=== PATIENT | male | born 1960 | race Caucasian/White ===

== ENCOUNTER 2016-02-10 10:23 | Outpatient (CLI) | payer MEDICARE, MEDICAID | END 2016-02-10 10:24 | disposition home or self-care (01) | DX: R73.9 Hyperglycemia, unspecified (principal); E78.5 Hyperlipidemia, unspecified ==

== ENCOUNTER 2016-02-27 | Outpatient (CLI) | payer MEDICARE, MEDICAID | END 2016-02-27 13:30 | disposition home or self-care (01) | DX: R07.9 Chest pain, unspecified (principal) ==

== ENCOUNTER 2016-03-19 14:07 | Outpatient (CLI) | payer MEDICARE, MEDICAID | END 2016-03-19 14:08 | disposition home or self-care (01) | DX: F25.9 Schizoaffective disorder, unspecified (principal) ==

== ENCOUNTER 2016-06-08 21:45 | Outpatient (CLI) | payer MEDICARE, MEDICAID | END 2016-06-08 21:46 | disposition home or self-care (01) | DX: E11.9 Type 2 diabetes mellitus without complications (principal) ==

== ENCOUNTER 2016-08-12 16:11 | Outpatient (CLI) | payer MEDICARE, MEDICAID | END 2016-08-12 16:12 | disposition EMS.NT | DX: M25.552 Pain in left hip (principal) ==

== ENCOUNTER 2016-08-30 07:07 | Day surgery (SDC) | payer MEDICARE, MEDICAID ==
[2016-08-30] MEDS ORDERED: LACTATED RINGERS 1,000 ML IV ONE (07:34)
--- NOTE | 2016-08-30 08:15 | SURGERY HX AND PHYSICAL(T) ---
Surgical History & Physical - PMH/PSH/Social Hx Does the pt have a hx of MRSA?: No Neurological History: Dementia Eyes, Ears, Nose, Throat: None, Chronic hearing loss Cardiovascular: High cholesterol Respiratory: COPD, Emphysema, Sleep apnea, Other Skin: None Endocrine/Autoimmune: Type 2 diabetes Gastrointestinal: GERD, Hiatal hernia, Other Urinary: None Musculoskeletal: None Blood Disorders: None Psychiatric: Depression, Anxiety, Schizophrenia, Panic attacks General: EGD Orthopedic: Other Eyes Ears Nose Throat (EENT): Other Smoking Status: Current every day smoker Does the pt drink ETOH?: Yes Frequency: Occasional Does the pt have substance abuse?: No - Home Meds and Allergies Home Medications: Aripiprazole [Abilify] 15 mg PO DAILY 06/18/12 Cholecalciferol (Vitamin D3) [Vitamin D] 5,000 unit PO DAILY 06/18/12 Divalproex ER [Depakote ER] 500 mg PO BID 06/18/12 Multivitamin [Multivitamins] 1 each PO DAILY 06/18/12 Pantoprazole Sodium [Protonix] 40 mg PO DAILY 06/18/12 QUEtiapine [SEROquel] 600 mg PO QPM 06/18/12 Albuterol Sulfate [Albuterol Sulfate Hfa] 0.083 mg PO TID 11/01/13 Albuterol Sulfate [Proair Hfa] 2 inhaler INH DAILY 11/01/13 Atorvastatin [Lipitor] 10 mg PO QPM 11/01/13 Ketotifen Fumarate [Eye Itch Relief] 5 ml OP DAILY 11/01/13 Budesonide/Formoterol Fumarate [Symbicort 160-4.5 Mcg Inhaler] 2 puffs BID 09/05 Fluticasone [Flonase] 2 spray INH DAILY 09/05/14 Tiotropium [Spiriva] 1 puffs INH DAILY 09/05/14 Citalopram [CeleXA] 10 mg PO DAILY 08/24/15 Loratadine [Claritin] 10 mg PO DAILY 08/24/15 Allergies/Adverse Reactions: Allergies Allergy/AdvReac Type Severity Reaction Status Date / Time No Known Drug Allergies Allergy Verified 03/26/14 07:15 - Vital Signs Temperature: 36.0 C Respiratory Rate: 16 O2 Saturation: 94 Weight (kg): 77.7 kg Height: 1.7 m - Patient Review Patient Review: Problems were reviewed with the patient during this visit. Medications were reviewed with the patient during this visit. Allergies were reviewed this patient during this visit. Pertinent Tests Reviewed: All pertitent test for this patient were reviewed. - Assessment & Plan Assessment and Plan: This very pleasant 55-year-old male was initially sent to our office by Dr. Enrique Higgins on July 15 and for reasons that are unclear to me he was scheduled more than 30 days out. Because of this and updated/new history and physical is mandated. No substantive changes. There have been no new medications, no new allergies, no medications have been stopped, he has not been admitted to the hospital, there are no new diagnoses, and he has not been operated on. There are no new concerns or complaints.. He is accompanied to today's visit by his caregiver and another woman (mother?). He denies nausea, vomiting, constipation, diarrhea, melena, hematochezia, hematemesis, abdominal pain, unexplained weight loss, or change in the color, character or caliber of his stool. He denies dysphagia, odynophagia, dysphasia, or GERD. He is very agreeable with me today and I am not sure how much of what he is saying is a consistent feature of his history. The patient had a an EGD performed by Dr. 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 At that time he was getting every 2 year EGDs to follow-up his Jimenez's.repeat EGD in 2013 also showed Jimenez's changes. Allergies: * DUST (Critical) Current Meds: METFORMIN HCL 500 MG TABS (METFORMIN HCL) Take one tablet by mouth twice daily DOCUSATE SODIUM 100 MG ORAL TABS (DOCUSATE SODIUM) Take one half tablet to one tablet by mouth daily as needed for constipation. DAILY SHAUNA ORAL TABS (MULTIPLE VITAMIN) Take one tablet by mouth every morning PEPTO-BISMOL SUSP (BISMUTH SUBSALICYLATE SUSP) Take 30ml every hour to every 4 hours as needed ATORVASTATIN CALCIUM 10 MG ORAL TABS (ATORVASTATIN CALCIUM) Take one tablet by mouth daily at bedtime LORATADINE 10 MG TABS (LORATADINE) Take one tablet by mouth daily as needed for allergies ABILIFY 20 MG ORAL TABS (ARIPIPRAZOLE) Take one tablet by mouth daily in the evening SPIRIVA HANDIHALER 18 MCG CAPS (TIOTROPIUM BROMIDE MONOHYDRATE) Inhale one capsuleby mouth every morning CITALOPRAM HYDROBROMIDE 20 MG TABS (CITALOPRAM HYDROBROMIDE) Take one tablet by mouth daily in the evening FLUTICASONE PROPIONATE 50 MCG/ACT SUSP (FLUTICASONE PROPIONATE) Use two sprays each nostril daily ALBUTEROL SULFATE 0.083 % NEBU (ALBUTEROL SULFATE) Use one ampule via nebulizer twice daily BREO ELLIPTA 100-25 MCG/INH INH AEPB (FLUTICASONE FUROATE-VILANTEROL) One inhalation once daily. VITAMIN D3 5000 UNIT ORAL TABS (CHOLECALCIFEROL) Take one tablet by mouth daily SEROQUEL 200 MG TABS (QUETIAPINE FUMARATE) Take three tablets by mouth daily at bedtime DEPAKOTE 500 MG ORAL TBEC (DIVALPROEX SODIUM) Take one tablet by mouth twice daily PANTOPRAZOLE SODIUM 40 MG ORAL TBEC (PANTOPRAZOLE SODIUM) Take one tablet by mouth twice daily KETOTIFEN FUMARATE 0.025 % OPHTH SOLN (KETOTIFEN FUMARATE) Instill 1 drop each eye every 8 hours as needed for red, itchy eyes PROAIR HFA 108 (90 BASE) MCG/ACT AERS (ALBUTEROL SULFATE) Inhale two puffs every 6-8 hours as needed for wheezing or breathing difficulties TYLENOL 325 MG ORAL TABS (ACETAMINOPHEN) Take one to two tablets by mouth as needed. Not to exceed 6 tablets per day. SIMETHICONE 80 MG ORAL CHEW (SIMETHICONE) Take one chewCentricity only allows for 2000 characters per field and this is not enough to input the patient's medications. Please refer to the patient or another list for an accurate list of the patient's medications. 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 Past Surgical History: Upper GI endoscopy Family History Summary: Mother (biol.) - Has Family History Unknown - Entered On: 10/31/2015 Risk Factors: Smoked Tobacco Use: Current every day smoker Cigarettes: Yes Counseled to quit/cut down: no No Counseling Performed Reason: Not indicated Passive smoke exposure: no Drug use: no HIV high-risk behavior: no Caffeine use: 2 drinks per day Alcohol use: yes Type: wine or beer Drinks per day: social Exercise: yes Times per week: 3 Type of Exercise: seated exercises with bungy cordd Seatbelt use: 100 % Sun Exposure: frequently Family History Risk Factors: Family History of VT in females < 65 years old: no Family History of VT in males < 55 years old: no Review of Systems Asked constitutional, eyes, ears, nose, mouth, throat, cardiovascular, respiratory, gastrointestinal, genitourinary, musculoskeletal, integumentary, neurological, psychiatric, endocrine, hematologic, lymphatic, allergic, and immunologic and is diffusely positive. Allergies: * DUST (Critical) Physical Exam General: 55-year old male of short stature with clear developmental delays, mild mental retardation, well nourished HEENT: Prominent forehead and brow, atraumatic, extraocular movement intact, mucous membranes pink and moist, sclera anicteric and not injected, male pattern baldness Neck: Supple without pain on palpation, mass or bruit Cardiac: Regular rate and rhythm without rub, gallop, or murmur Chest: Clear to auscultation bilaterally Abdomen: Soft, nontender, normoactive bowel sounds, no hepatomegaly, no splenomegaly Genitourinary: Deferred Rectal: Deferred Extremities: No gross neurovascular problem, no clubbing, cyanosis or edema Gait: No gross motor deficit Psychiatric: Alert and oriented to person place and time, asks and answers questions appropriately, mood and affect appropriate Impression & Recommendations: Esophagogastroduodenoscopy with possible biopsies and/or polypectomies. Indications, procedure, alternatives (such as barium studies and even no procedure at all) and risks including but not limited to perforation requiring operative repair, bleeding with its risks, and were fully explained to him. In the office, I adam diagrams explaining the upper gastrointestinal anatomy and the proposed procedure and handed it to him. In the office, conscious sedation was discussed at length with him as were its risks including but not limited to loss of airway, aspiration, respiratory depression, and not enough relief of pain and anxiety and he indicated that he wished to have conscious sedation for his procedure. I explained that his posterior oropharynx would also be anesthetized for the procedure. In the office, I explained that MAC anesthesia is associated with a higher incidence of intestinal perforation. Review of his history did not and does not reveal any significant systemic disease that would contraindicate use of conscious sedation or MAC anesthesia. All questions were fully answered. Verbal and written consent was obtained. The patient in preparation for his esophagogastroduodenoscopy has been n.p.o. 20 minutes of [id number] time spent with the patient and his caregiver the majority of which was spent in discussion and in the generation of this document
[2016-08-30] MEDS ORDERED: MIDAZOLAM 2 MG/2 ML VIAL IVP ONE (08:47)
[2016-08-30] MEDS ORDERED: fentaNYL 100 MCG/2 ML VIAL IVP ONE (08:47)
[2016-08-30] MEDS ORDERED: BENZOCAINE/TETRACAINE/BUTAMBEN SPRAY 56 GM TOP ONE (08:52)
[2016-08-30] MEDS ORDERED: LIDO GARGLE 30 ML BOTTLE PO ONE (08:52)
[2016-08-30 10:06] VITALS: BP 113/76
== END 2016-08-30 07:08 | disposition home or self-care (01) ==
LOC: SDS 07:07
PROVIDERS: ATTEND Surgery
PROC: 0DB38ZX Excision of Lower Esophagus, Via Natural or Artificial Opening Endoscopic, Diagnostic (ICD-10-PCS; principal; 2016-08-30 08:15)
DX: K22.70 Barrett's esophagus without dysplasia (principal); K20.9 Esophagitis, unspecified; F03.90 Unspecified dementia, unspecified severity, without behavioral disturbance, psychotic disturbance, mood disturbance, and anxiety; J44.9 Chronic obstructive pulmonary disease, unspecified; E11.9 Type 2 diabetes mellitus without complications; K21.9 Gastro-esophageal reflux disease without esophagitis; F41.0 Panic disorder [episodic paroxysmal anxiety]; F32.9 Major depressive disorder, single episode, unspecified; F20.9 Schizophrenia, unspecified; Z79.84 Long term (current) use of oral hypoglycemic drugs; G47.33 Obstructive sleep apnea (adult) (pediatric); E78.5 Hyperlipidemia, unspecified; F17.210 Nicotine dependence, cigarettes, uncomplicated
CPT/HCPCS: 43239; A9270; J7120; 87081; 88305

== ENCOUNTER 2017-01-05 08:00 | Outpatient (CLI) | payer MEDICARE, MEDICAID ==
[2017-01-05 12:32] LABS: BASOPHILS % (AUTO) 0.3 %; EOSINOPHILS # (AUTO) 0.2 10^3/uL (0.0-0.7); EOSINOPHILS % (AUTO) 2.6 %; HCT - HEMATOCRIT 44.9 % (42.0-52.0); HGB - HEMOGLOBIN 15.2 g/dL (14.0-18.0); LYMPHOCYTES # (AUTO) 2.8 10^3/uL (1.5-3.5); LYMPHOCYTES % (AUTO) 39.7 %; MEAN CORPUSCULAR HEMOGLOBIN 30.2 pg (27.0-31.0); MEAN CORPUSCULAR HGB CONC 33.9 g/dL (32.0-36.0); MEAN CORPUSCULAR VOLUME 89.3 fL (80.0-94.0); MEAN PLATELET VOLUME 8.2 fL (7.4-11.4); MONOCYTES # (AUTO) 0.9 10^3/uL (0.0-1.0); MONOCYTES % (AUTO) 12.7 %; NEUTROPHILS # (AUTO) 3.2 10^3/uL (1.5-6.6); NEUTROPHILS % (AUTO) 44.7 %; NUCLEATED RED BLOOD CELLS AUTO 0.1 /100WBC; RED BLOOD COUNT 5.03 10^6/uL (4.70-6.10); RED CELL DISTRIBUTION WIDTH 15.3 % (12.0-15.0); UNCORRECTED WHITE BLOOD COUNT 7.1 x10^3/uL; WHITE BLOOD COUNT 7.1 x10^3/uL (4.8-10.8)
[2017-01-05 13:00] LABS: HEMOGLOBIN A1C 0.64 g/dL
[2017-01-05 13:17] LABS: ALBUMIN/GLOBULIN RATIO 1.4 (1.0-2.2); BILIRUBIN,TOTAL 0.6 mg/dL (0.2-1.0); BUN - BLOOD UREA NITROGEN 25 mg/dL (6-20); CALCIUM 9.3 mg/dL (8.5-10.3); CARBON DIOXIDE - CO2 30 mmol/L (21-32); CHLORIDE 100 mmol/L (101-111); CHOL/HDL RATIO 4.5 (<5.0); CHOLESTEROL 174 mg/dL; CREATININE 0.6 mg/dL (0.6-1.2); GFR - MDRD 138 (>89); GLUCOSE 94 mg/dL (70-100); HDL CHOLESTEROL 39 mg/dL; LDL/HDL RATIO 1.9 (<3.6); SODIUM 137 mmol/L (135-145); TOTAL PROTEIN 6.8 g/dL (6.7-8.2); TRIGLYCERIDES 312 mg/dL; VLDL CHOLESTEROL 62 mg/dL
== END 2017-01-05 08:01 | disposition home or self-care (01) ==
LOC: LAB.N 08:00
PROVIDERS: ATTEND Family Medicine
DX: E11.9 Type 2 diabetes mellitus without complications (principal); E78.5 Hyperlipidemia, unspecified; F25.9 Schizoaffective disorder, unspecified
CPT/HCPCS: 36415; 80053; 80061; 80164; 83036; 85025

== ENCOUNTER 2017-04-07 13:58 | Outpatient (CLI) | payer MEDICARE, MEDICAID | END 2017-04-07 13:59 | disposition EMS.NT | LOC: EMS 13:58 | PROVIDERS: ATTEND Surgery | DX: S30.810A Abrasion of lower back and pelvis, initial encounter (principal); W18.30XA Fall on same level, unspecified, initial encounter; Y92.039 Unspecified place in apartment as the place of occurrence of the external cause ==

== ENCOUNTER 2017-05-17 08:00 | Outpatient (CLI) | payer MEDICARE, MEDICAID ==
[2017-05-17 12:23] LABS: CALCIUM 8.7 mg/dL (8.5-10.3); CREATININE 0.7 mg/dL (0.6-1.2)
[2017-05-17 12:41] LABS: HB2 TOTAL 15.8 g/dL; HEMOGLOBIN A1C 0.72 g/dL; HEMOGLOBIN A1C % 6.3 % (4.6-6.2)
== END 2017-05-17 08:01 | disposition home or self-care (01) ==
LOC: LAB.N 08:00
PROVIDERS: ATTEND Family Medicine
DX: E11.9 Type 2 diabetes mellitus without complications (principal)
CPT/HCPCS: 36415; 80048; 83036

== ENCOUNTER 2017-09-22 16:05 | Outpatient (CLI) | payer MEDICARE, MEDICAID ==
--- NOTE | 2017-09-22 16:36 | XRAY Report ---
Procedure Date: 09/22/2017 Accession Number: [id number] / [id number] Procedure: XRN - Hip w/Pelvis 2-3V LT CPT Code: FULL RESULT: EXAM: LEFT HIP AND PELVIS RADIOGRAPHY EXAM DATE: 09/22/2017 04:27 PM. HISTORY: Left hip pain. COMPARISONS: None. TECHNIQUE: 1 view of the pelvis and 1 view of the hip. FINDINGS: Bones: Normal. No fracture or bone lesion. Joints: Mild narrowing at the right hip joint with mild subcortical sclerosis and small osteophyte right acetabular roof. Moderate narrowing of the left hip joint with moderate-sized osteophytes and subcortical sclerosis involving the entirety of the deep acetabulum. Small amount of subcortical sclerosis and cyst formation along the normally configured femoral head. Small osteophytes off the inferior aspect of the femoral head. Normal sacroiliac joints. Marked degenerative disk disease L4-L5 and L5-S1. Soft Tissues: Normal. No soft tissue swelling. IMPRESSION: 1. Mild degenerative changes right hip joint. 2. Moderate to marked degenerative changes left hip, grade 3 Kellgren Samuel classification. Suspect impingement syndrome. 3. Marked degenerative disk disease lower lumbar spine. RADIA
== END 2017-09-22 16:06 | disposition home or self-care (01) ==
LOC: DI.N 16:05
PROVIDERS: ATTEND Family Medicine
DX: M16.0 Bilateral primary osteoarthritis of hip (principal); M51.36 Other intervertebral disc degeneration, lumbar region

== ENCOUNTER 2018-01-03 08:31 | Outpatient (CLI) | payer MEDICARE, MEDICAID ==
[2018-01-03 12:48] LABS: HB2 TOTAL 15.6 g/dL; HEMOGLOBIN A1C 0.68 g/dL; HEMOGLOBIN A1C % 6.1 % (4.6-6.2)
[2018-01-03 12:49] LABS: ALBUMIN 3.4 g/dL (3.2-5.5); ALBUMIN/GLOBULIN RATIO 1.3 (1.0-2.2); ALKALINE PHOSPHATASE 76 IU/L (42-121); ALT ALANINE AMINOTRANSFERASE 41 IU/L (10-60); AST ASPARTATE AMINOTRANSFERASE 27 IU/L (10-42); BILIRUBIN,TOTAL 0.4 mg/dL (0.2-1.0); BUN - BLOOD UREA NITROGEN 11 mg/dL (6-20); CALCIUM 8.8 mg/dL (8.5-10.3); CARBON DIOXIDE - CO2 35 mmol/L (21-32); CHLORIDE 95 mmol/L (101-111); CHOL/HDL RATIO 4.1 (<5.0); CHOLESTEROL 182 mg/dL; CREATININE 0.7 mg/dL (0.6-1.2); GFR - MDRD 115 (>89); GLUCOSE 98 mg/dL (70-100); HDL CHOLESTEROL 44 mg/dL; LDL CHOLESTEROL,CALCULATED 87 mg/dL; SODIUM 137 mmol/L (135-145); VALPROIC ACID (DEPAKOTE) 56.8 ug/mL; VLDL CHOLESTEROL 51 mg/dL
[2018-01-03 12:52] LABS: BASOPHILS % (AUTO) 0.7 %; EOSINOPHILS # (AUTO) 0.1 10^3/uL (0.0-0.7); EOSINOPHILS % (AUTO) 2.4 %; HGB - HEMOGLOBIN 14.6 g/dL (14.0-18.0); LYMPHOCYTES # (AUTO) 2.2 10^3/uL (1.5-3.5); LYMPHOCYTES % (AUTO) 37.4 %; MEAN CORPUSCULAR HEMOGLOBIN 30.6 pg (27.0-31.0); MEAN CORPUSCULAR HGB CONC 34.1 g/dL (32.0-36.0); MEAN CORPUSCULAR VOLUME 89.5 fL (80.0-94.0); MEAN PLATELET VOLUME 8.1 fL (7.4-11.4); MONOCYTES # (AUTO) 0.7 10^3/uL (0.0-1.0); MONOCYTES % (AUTO) 12.1 %; NEUTROPHILS # (AUTO) 2.8 10^3/uL (1.5-6.6); NEUTROPHILS % (AUTO) 47.4 %; PLT - PLATELET COUNT 232 10^3/uL (130-450); RED BLOOD COUNT 4.77 10^6/uL (4.70-6.10); RED CELL DISTRIBUTION WIDTH 15.1 % (12.0-15.0); WHITE BLOOD COUNT 5.9 x10^3/uL (4.8-10.8)
[2018-01-03 13:36] LABS: RBC MORPHOLOGY (MULTIPLE) 2+ ANISOCYTOSIS (NORMAL)
== END 2018-01-03 23:59 | disposition home or self-care (01) ==
LOC: LAB.N 08:31
PROVIDERS: ATTEND Family Medicine
DX: E11.9 Type 2 diabetes mellitus without complications (principal); K22.70 Barrett's esophagus without dysplasia; F25.9 Schizoaffective disorder, unspecified
CPT/HCPCS: 36415; 80053; 80061; 80164; 83036; 83721; 84443; 85025

== ENCOUNTER 2018-01-18 17:06 | Emergency (ER) | payer MEDICARE, MEDICAID ==
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
[2018-01-18] MEDS ORDERED: DOXYCYCLINE 100 MG TABLET PO STA (18:13)
--- NOTE | 2018-01-18 20:46 | Ultrasound Report ---
Reason: left leg/calf swollen and tender for few days Procedure Date: 01/18/2018 Accession Number: [id number] / [id number] Procedure: US - Duplex Ext Veins Left CPT Code: FULL RESULT: EXAM: LEFT LOWER EXTREMITY VENOUS ULTRASOUND EXAM DATE: 01/18/2018 07:51 PM. CLINICAL HISTORY: Left leg/calf swollen and tender for few days. COMPARISON: DUPLEX EXT VEINS LEFT 05/23/2015 8:19 PM. TECHNIQUE: Real-time sonographic vascular imaging was performed by the networking specialist through the lower extremity utilizing both color-flow and Doppler spectral analysis. Multiple student services representative static images were saved for review. FINDINGS: Common Femoral Vein (CFV): Normal. CFV-GSV Junction: Normal. Profunda Femoral Vein (PFV): Normal. Femoral Vein (FV) Prox: Normal. Femoral Vein (FV) Mid: Normal. Femoral Vein (FV) Dist: Normal. Popliteal Vein: Normal. Posterior Tibial Veins: Normal. Peroneal Veins: Normal. IMPRESSION: No evidence for deep venous thrombosis. RADIA
--- NOTE | 2018-01-18 20:52 | Ultrasound Report ---
Reason: right leg numbness with walking for weeks Procedure Date: 01/18/2018 Accession Number: [id number] / [id number] Procedure: US - Duplex Lwr Ext Arterial RT CPT Code: FULL RESULT: EXAM: RIGHT LOWER EXTREMITY ARTERIAL DOPPLER ULTRASOUND. EXAM DATE: 01/18/2018 08:29 PM. CLINICAL HISTORY: Right leg numbness with walking for weeks. Patient has hypertension, smoking, diabetes and lipids. COMPARISON: None. TECHNIQUE: Real-time sonographic vascular imaging was performed by the lightout examiner, utilizing color-flow, Doppler flow, and spectral analysis. Multiple member service representative static images were saved for review. FINDINGS: Right Leg: NAVAL MARINE ENGINEER: PSV 157 cm/sec. Triphasic waveform. PSFA: PSV 125 cm/sec. Triphasic waveform. MSFA: PSV 96 cm/sec. Triphasic waveform. DSFA: PSV 92 cm/sec. Triphasic waveform. PFA: PSV 94 cm/sec. Triphasic waveform. POP: PSV 36 cm/sec. Biphasic waveform. ALIZA: PSV 28 cm/sec. Biphasic waveform. TRAFFIC EXPERT: PSV 59 cm/sec. Biphasic waveform. PER: PSV 35 cm/sec. Biphasic waveform. DPA: PSV 47 cm/sec. Biphasic waveform. IMPRESSION: No evidence for hemodynamically significant stenosis or occlusion. RADIA
[2018-01-18] MEDS ORDERED: IBUPROFEN 600 MG TABLET PO STA (21:10)
[2018-01-18 21:20] VITALS: BP 139/92
== END 2018-01-18 21:22 | disposition home or self-care (01) ==
LOC: ED 17:06
DX: L03.116 Cellulitis of left lower limb (principal); M79.89 Other specified soft tissue disorders; F17.200 Nicotine dependence, unspecified, uncomplicated; E11.9 Type 2 diabetes mellitus without complications
CPT/HCPCS: 93926; 93971; 99283; A9270

== ENCOUNTER 2018-01-23 16:32 | Outpatient (CLI) | payer MEDICARE, MEDICAID | END 2018-01-23 16:33 | disposition EMS.NT | LOC: EMS 16:32 | PROVIDERS: ATTEND Surgery | DX: M79.89 Other specified soft tissue disorders (principal) ==

== ENCOUNTER 2018-04-05 12:25 | Outpatient (CLI) | payer MEDICARE, MEDICAID ==
--- NOTE | 2018-04-05 14:13 | XRAY Report ---
Reason: L TOE PAIN Procedure Date: 04/05/2018 Accession Number: [id number] / [id number] Procedure: XRN - Foot 2 View LT CPT Code: FULL RESULT: EXAM: LEFT FOOT RADIOGRAPHY EXAM DATE: 04/05/2018 01:02 PM. CLINICAL HISTORY: Left toe pain. COMPARISON: None. TECHNIQUE: 2 views. FINDINGS: Bones: Status post arthrodesis of the first ray phalanges. Joints: Positioning is suggestive of contracture. No subluxation is identified. Soft Tissues: Normal. No soft tissue swelling. IMPRESSION: Status post arthrodesis of the left great toe without fracture or subluxation. RADIA
== END 2018-04-05 12:26 | disposition home or self-care (01) ==
LOC: DI.N 12:25
PROVIDERS: ATTEND Physician Assistant Medical
DX: M79.675 Pain in left toe(s) (principal); Z98.1 Arthrodesis status

== ENCOUNTER 2018-07-13 08:00 | Outpatient (CLI) | payer MEDICARE, MEDICAID ==
[2018-07-13 12:56] LABS: BASOPHILS % (AUTO) 0.5 %; EOSINOPHILS # (AUTO) 0.1 10^3/uL (0.0-0.7); EOSINOPHILS % (AUTO) 1.9 %; HGB - HEMOGLOBIN 16.1 g/dL (14.0-18.0); LYMPHOCYTES # (AUTO) 2.8 10^3/uL (1.5-3.5); LYMPHOCYTES % (AUTO) 45.6 %; MEAN CORPUSCULAR HEMOGLOBIN 30.1 pg (27.0-31.0); MEAN CORPUSCULAR HGB CONC 33.3 g/dL (32.0-36.0); MEAN CORPUSCULAR VOLUME 90.2 fL (80.0-94.0); MEAN PLATELET VOLUME 8.3 fL (7.4-11.4); MONOCYTES # (AUTO) 0.7 10^3/uL (0.0-1.0); MONOCYTES % (AUTO) 10.9 %; NEUTROPHILS # (AUTO) 2.5 10^3/uL (1.5-6.6); NEUTROPHILS % (AUTO) 41.1 %; PLT - PLATELET COUNT 229 10^3/uL (130-450); RED BLOOD COUNT 5.37 10^6/uL (4.70-6.10); RED CELL DISTRIBUTION WIDTH 15.3 % (12.0-15.0); WHITE BLOOD COUNT 6.1 x10^3/uL (4.8-10.8)
[2018-07-13 13:23] LABS: ALBUMIN 3.9 g/dL (3.2-5.5); ALBUMIN/GLOBULIN RATIO 1.3 (1.0-2.2); ALKALINE PHOSPHATASE 75 IU/L (42-121); ALT ALANINE AMINOTRANSFERASE 36 IU/L (10-60); AST ASPARTATE AMINOTRANSFERASE 38 IU/L (10-42); BILIRUBIN,TOTAL 0.5 mg/dL (0.2-1.0); BUN - BLOOD UREA NITROGEN 17 mg/dL (6-20); CALCIUM 8.9 mg/dL (8.5-10.3); CARBON DIOXIDE - CO2 28 mmol/L (21-32); CHLORIDE 98 mmol/L (101-111); CHOL/HDL RATIO 6.3 (<5.0); CHOLESTEROL 194 mg/dL; CREATININE 0.9 mg/dL (0.6-1.2); GFR - MDRD 86 (>89); GLUCOSE 172 mg/dL (70-100); HDL CHOLESTEROL 31 mg/dL; LDL CHOLESTEROL,CALCULATED 90 mg/dL; LDL/HDL RATIO 2.9 (<3.6); SODIUM 138 mmol/L (135-145); TOTAL PROTEIN 6.9 g/dL (6.7-8.2); VALPROIC ACID (DEPAKOTE) 65.3 ug/mL; VLDL CHOLESTEROL 73 mg/dL
[2018-07-13 13:44] LABS: HB2 TOTAL 17.3 g/dL; HEMOGLOBIN A1C 0.81 g/dL; HEMOGLOBIN A1C % 6.4 % (4.6-6.2)
== END 2018-07-13 23:59 | disposition home or self-care (01) ==
LOC: LAB.N 08:00
PROVIDERS: ATTEND Physician Assistant Medical
DX: E78.5 Hyperlipidemia, unspecified (principal); E11.9 Type 2 diabetes mellitus without complications; F25.9 Schizoaffective disorder, unspecified
CPT/HCPCS: 36415; 80053; 80061; 80164; 83036; 83721; 85025

== ENCOUNTER 2018-10-10 14:25 | Outpatient (CLI) | payer MEDICARE, MEDICAID ==
--- NOTE | 2018-10-10 21:26 | SLEEP CARE CONSULTATION ---
Information from patient questionnaire entered by Huma Rojas. I have reviewed and concur with the information entered by Huma Rojas. This document represents the service I personally performed and the decisions made by me, Jean-Claude Soler MD, [facility]. History of Present Illness Reason for Visit: Previously diagnosed sleep apnea (SEVERE LEO AHI 40.0), Re- establish care Chief Complaint: reports: Other (NEEDING HELP BREATHING BETTER AT NIGHT) Duration of Symptoms: FEW MONTHS Usual bedtime: [id number] Time it takes to fall asleep: 30 MINUTES Observed to quit breathing while asleep: No Sleeps alone due to snoring: No Number of times waking at night: ON AND OFF Reasons for waking at night: reports: Other (HUNGRY OR CAN'T FALL BACK TO SLEEP) Toss, Turn, or Twitch while sleeping: Yes Recalls having dreams: Yes Usually gets out of bed at: [id number] Feels refreshed in the morning: Yes Morning headache: No Sleepy or fatigued during the day: Yes Ever fallen asleep while driving: No Takes day naps: Yes Dreams during day naps: Yes Prior sleep studies: Yes Year and Where: 2013 [facility] Additional HPI information: I had the pleasure of seeing Mr. Damon along with his game tester today regarding obstructive sleep apnea-hypopnea. As you know, he is a 57 year old gentleman who was diagnosed with severe obstructive sleep apnea-hypopnea (AHI was 40.0) here in 2013. He tried BiPAP but was unable to tolerate. He used oxygen at night for a while and then the treatment was discontinued. He continues to smoke cigarettes but much less. He sleeps alone. His game tester states that he appears sleepy during the day. Subjective Initial Bristol Sleepiness Scale score: 10 Past Medical History Past Medical History: reports: Anxiety, Depression, Mood disorder, GERD, Other Social History The patient's occupation is NOT EMPLOYED. Patient is Single and lives in [place]. Have you smoked in the past 12 months: Yes Alcohol use: No Caffeine use: Yes Caffeine amount and frequency: 2-4 Allergies and Home Medications Drug allergies reviewed: Yes Home medication list reviewed: Yes Review of Systems Cardiovascular: reports: leg or foot swelling Respiratory: reports: shortness of breath, wheeze Gastrointestinal: denies: heartburn, difficulty swallowing, nausea, vomitting, diarrhea, abdominal pain, other Urinary: denies: incontinence, frequency, urgency, impotence, other Psychiatric: reports: anxiety, depression, mood disorder Endocrine: denies: thyroid disease, history of goiter, sluggishness, too hot or cold, excessive thirst, increased appetite, increased urination, unexplained weakness, other Musculoskeletal: reports: joint pain, neck pain, back pain, joint swelling, muscle pain or cramping, mobility problems Physical Exam Vital signs obtained and entered by: Dr. Soler Blood Pressure: 120/80 Heart Rate: 70 O2 Saturation: 92 Height: 5 ft 9 in Weight (kg): 192 lb Body Mass Index: 28.3 BMI Classification: Overweight Neck circumference: 16.5 HEENT: No craniofacial malformation Nostrils: patent to airflow Turbinates: normal Septum: midline Mouth and throat: narrow oropharynx Soft palate: long Hard palate: normal Uvula: normal Uvula visualization: 50% Mallampati Class II Tongue: normal in size Tonsils: absent bilaterally Chin and jaw: normal size and position Neck: normal w/o lymphadenopathy or thyromegaly Heart: regular rate and rhythm Lungs: clear bilaterally Abdomen: soft Extremities: no edema or clubbing Neurologic: intact Impression and Plan IMPRESSION: 1. Obstructive Sleep Apnea-Hypopnea Syndrome, severe, untreated. The patient appears to be symptomatic for loud snoring, frequent awakenings during the night, unrefreshed sleep, cognitive impairment, and daytime hypersomnolence. Narrow oropharynx and obesity are common predisposing factors for obstructive sleep apnea-hypopnea syndrome. Pathophysiology of sleep-disordered breathing was discussed. Because his sleep studies were over 5 years ago, I recommend repeating the in-laboratory polysomnography to confirm the diagnosis and to reassess severity. If he has significant sleep disordered breathing, a manual CPAP titration study will also be performed to find the optimal treatment pressure and to see if oxygen supplement is necessary at night or not. I informed the patient of what the sleep studies involve and after some discussion, he agreed to proceed. Plan: 1. Schedule polysomnography + manual CPAP titration study and return in 1 to 2 weeks after the study to discuss result and initiate therapy. 2. Avoid long distance driving or when feeling sleepy. 3. Avoid alcohol, sedative and muscle relaxant around bedtime. 4. Attempt to lose weight. 5. Quit smoking. I spent 100% of this 15 minute visit face to face with the patient with greater than 50% of this was spent time counseling the patient and coordination of care.
[2018-10-10 21:27] VITALS: BP 120/80
== END 2018-10-10 14:26 | disposition home or self-care (01) ==
LOC: SC 14:25
PROVIDERS: ATTEND Internal Medicine Pulmonary Disease
DX: G47.33 Obstructive sleep apnea (adult) (pediatric) (principal)
CPT/HCPCS: 99203; G0463; 99212

== ENCOUNTER 2018-11-01 19:32 | Outpatient (CLI) | payer MEDICARE, MEDICAID | END 2018-11-01 19:33 | disposition home or self-care (01) | LOC: SC 19:32 | PROVIDERS: ATTEND Internal Medicine Pulmonary Disease | DX: G47.33 Obstructive sleep apnea (adult) (pediatric) (principal); G47.61 Periodic limb movement disorder | CPT/HCPCS: 95810 ==

== ENCOUNTER 2018-12-05 10:40 | Outpatient (CLI) | payer MEDICARE, MEDICAID ==
--- NOTE | 2018-12-05 12:50 | SLEEP CARE CONSULTATION ---
Information from patient questionnaire entered by Huma Rojas. I have reviewed and concur with the information entered by Huma Rojas. This document represents the service I personally performed and the decisions made by me, Jean-Claude Soler MD, [facility]. History of Present Illness Initial [place] Sleepiness Scale score: 10 Current [place] Sleepiness Scale score: 15 Additional HPI information: HPI: Mr. Damon returned with a extension edger for follow up of the sleep study he had on 11/01/2018. The polysomnography showed that the patient had normal sleep efficiency. The sleep architecture was abnormal for sleep fragmentation and reduced amount of time spent in REM and slow wave sleep (N3). Respiratory monitoring showed mild obstructive sleep apnea-hypopnea (AHI = 6.3) associated with frequent arousals, oxyhemoglobin desaturation and mild hypoxia (ashley oxygen saturation of 81%). The respiratory events occurred independently of sleep stage and body position (supine AHI = 6.7; non-supine = 6.15). Snore was light in intensity. There was severe periodic leg movement of sleep contributing to the sleep fragmentation. Cardiac rhythm was normal sinus rhythm without significant arrhythmia. No abnormal behavior (parasomnia) observed during the night. The patient was informed of these findings. I explained to him the pathophysiology behind obstructive sleep apnea. We then spent quite a bit of time discussing different treatment options. For mild obstructive sleep apnea, surgery and oral appliance are alternatives to nasal CPAP therapy but in moderate or severe cases, nasal CPAP is the most effective and reliable treatment. Weight loss in an obese individual is strongly recommended. After some discussion, he opted to try CPAP again. He tried CPAP 5 years ago and failed to be compliant with the treatment. Allergies and Home Medications Drug allergies reviewed: Yes Home medication list reviewed: Yes Review of Systems Review of systems same as previous: Yes Physical Exam Weight: 199 lb Impression and Plan IMPRESSION: 1. Obstructive Sleep Apnea-Hypopnea Syndrome, mild (was severe), associated with mild hypoxemia. His baseline oxygen saturation was already low at 90%, most likely due to emphysema given the life-long cigarette smoking history. Because he has excessive daytime sleepiness, treatment will be restarted. A manual CPAP/BiPAP titration study will be ordered to determine the optimal pressure setting and interface. PLAN: 1. Schedule a manual CPAP/BiPAP titration study. 2. Attempt to lose weight. 3. Return for follow up after the sleep study. I spent 100% of this 20 minute visit face to face with the patient with greater than 50% of this was spent time counseling the patient and coordination of care.
== END 2018-12-05 10:41 | disposition home or self-care (01) ==
LOC: SC 10:40
PROVIDERS: ATTEND Internal Medicine Pulmonary Disease
DX: G47.33 Obstructive sleep apnea (adult) (pediatric) (principal); J43.9 Emphysema, unspecified
CPT/HCPCS: 99213; G0463; 99212

== ENCOUNTER 2018-12-18 11:51 | Outpatient (CLI) | payer MEDICARE, MEDICAID ==
[2018-12-18 18:20] LABS: BASOPHILS % (AUTO) 0.4 %; EOSINOPHILS # (AUTO) 0.1 10^3/uL (0.0-0.7); EOSINOPHILS % (AUTO) 2.3 %; HGB - HEMOGLOBIN 14.4 g/dL (14.0-18.0); LYMPHOCYTES # (AUTO) 1.7 10^3/uL (1.5-3.5); LYMPHOCYTES % (AUTO) 32.7 %; MEAN CORPUSCULAR HEMOGLOBIN 29.1 pg (27.0-31.0); MEAN CORPUSCULAR VOLUME 93.9 fL (80.0-94.0); MEAN PLATELET VOLUME 10.4 fL (7.4-11.4); MONOCYTES # (AUTO) 0.8 10^3/uL (0.0-1.0); MONOCYTES % (AUTO) 14.7 %; NEUTROPHILS # (AUTO) 2.6 10^3/uL (1.5-6.6); NEUTROPHILS % (AUTO) 49.1 %; PLT - PLATELET COUNT 242 10^3/uL (130-450); RED BLOOD COUNT 4.95 10^6/uL (4.70-6.10); RED CELL DISTRIBUTION WIDTH 14.5 % (12.0-15.0); WHITE BLOOD COUNT 5.3 x10^3/uL (4.8-10.8)
[2018-12-18 18:40] LABS: ALBUMIN 3.6 g/dL (3.2-5.5); ALBUMIN/GLOBULIN RATIO 1.3 (1.0-2.2); ALKALINE PHOSPHATASE 67 IU/L (42-121); ALT ALANINE AMINOTRANSFERASE 29 IU/L (10-60); AST ASPARTATE AMINOTRANSFERASE 22 IU/L (10-42); BILIRUBIN,TOTAL 0.4 mg/dL (0.2-1.0); BUN - BLOOD UREA NITROGEN 14 mg/dL (6-20); CARBON DIOXIDE - CO2 34 mmol/L (21-32); CHLORIDE 99 mmol/L (101-111); CREATININE 0.7 mg/dL (0.6-1.2); GFR - MDRD 115 (>89); GLUCOSE 115 mg/dL (70-100); SODIUM 140 mmol/L (135-145); TOTAL PROTEIN 6.3 g/dL (6.7-8.2)
[2018-12-18 18:44] LABS: HB2 TOTAL 14.7 g/dL; HEMOGLOBIN A1C 0.7 g/dL; HEMOGLOBIN A1C % 6.5 % (4.6-6.2)
== END 2018-12-18 23:59 | disposition home or self-care (01) ==
LOC: LAB.N 11:51
PROVIDERS: ATTEND Physician Assistant Medical
DX: Z00.8 Encounter for other general examination (principal); F25.9 Schizoaffective disorder, unspecified; E11.9 Type 2 diabetes mellitus without complications
CPT/HCPCS: 36415; 80053; 80164; 83036; 85025; G0103; 84153

== ENCOUNTER 2019-10-12 08:00 | Outpatient (CLI) | payer MEDICARE, MEDICAID ==
[2019-10-12 18:19] LABS: BASOPHILS % (AUTO) 0.5 %; EOSINOPHILS # (AUTO) 0.1 10^3/uL (0.0-0.7); EOSINOPHILS % (AUTO) 1.8 %; HGB - HEMOGLOBIN 14.9 g/dL (14.0-18.0); LYMPHOCYTES # (AUTO) 2.1 10^3/uL (1.5-3.5); LYMPHOCYTES % (AUTO) 36.8 %; MEAN CORPUSCULAR HEMOGLOBIN 29.2 pg (27.0-31.0); MEAN CORPUSCULAR HGB CONC 30.8 g/dL (32.0-36.0); MEAN CORPUSCULAR VOLUME 94.5 fL (80.0-94.0); MEAN PLATELET VOLUME 10.4 fL (7.4-11.4); MONOCYTES # (AUTO) 0.8 10^3/uL (0.0-1.0); MONOCYTES % (AUTO) 14.2 %; NEUTROPHILS # (AUTO) 2.6 10^3/uL (1.5-6.6); PLT - PLATELET COUNT 246 10^3/uL (130-450); RED BLOOD COUNT 5.11 10^6/uL (4.70-6.10); RED CELL DISTRIBUTION WIDTH 14.8 % (12.0-15.0); WHITE BLOOD COUNT 5.7 x10^3/uL (4.8-10.8)
[2019-10-12 19:00] LABS: VALPROIC ACID (DEPAKOTE) 56.8 ug/mL
[2019-10-12 19:04] LABS: ALBUMIN/GLOBULIN RATIO 1.5 (1.0-2.2); ALKALINE PHOSPHATASE 70 IU/L (42-121); ALT ALANINE AMINOTRANSFERASE 23 IU/L (10-60); AST ASPARTATE AMINOTRANSFERASE 29 IU/L (10-42); BILIRUBIN,TOTAL 0.6 mg/dL (0.2-1.0); BUN - BLOOD UREA NITROGEN 24 mg/dL (6-20); CARBON DIOXIDE - CO2 32 mmol/L (21-32); CHLORIDE 98 mmol/L (101-111); CHOL/HDL RATIO 5.5 (<5.0); CHOLESTEROL 194 mg/dL; CREATININE 0.8 mg/dL (0.6-1.2); GLUCOSE 112 mg/dL (70-100); HDL CHOLESTEROL 35 mg/dL; LDL CHOLESTEROL,CALCULATED 103 mg/dL; LDL/HDL RATIO 2.9 (<3.6); SODIUM 138 mmol/L (135-145); TOTAL PROTEIN 6.6 g/dL (6.7-8.2); VLDL CHOLESTEROL 56 mg/dL
[2019-10-12 19:05] LABS: CREATININE,URINE 271.3 mg/dL; MICROALBUM/CREATININE RATIO,UR 1.5 ug/mg (<30.0); MICROALBUMIN,URINE 0.4 mg/dL (0-300.0)
[2019-10-12 20:22] LABS: HEMOGLOBIN A1c% 6.8 % (4.27-6.07)
== END 2019-10-12 23:59 | disposition home or self-care (01) ==
LOC: LAB.WCP 08:00
PROVIDERS: ATTEND Family Medicine
DX: E11.65 Type 2 diabetes mellitus with hyperglycemia (principal); J44.9 Chronic obstructive pulmonary disease, unspecified; F25.9 Schizoaffective disorder, unspecified
CPT/HCPCS: 36415; 80053; 80061; 80164; 82043; 82570; 83036; 83721; 84443; 85025

== ENCOUNTER 2020-01-02 14:58 | Outpatient (CLI) | payer MEDICARE, MEDICAID | END 2020-01-02 14:59 | disposition critical access hospital (66) | LOC: EMS 14:58 | PROVIDERS: ATTEND Surgery | DX: M54.6 Pain in thoracic spine (principal) | CPT/HCPCS: A0425; A0429 ==

== ENCOUNTER 2020-01-02 15:21 | Emergency (ER) | payer MEDICARE, MEDICAID ==
[2020-01-02] MEDS ORDERED: KETOROLAC 60 MG/2 ML VIAL IM STA (16:37)
[2020-01-02] MEDS ORDERED: CHERRY SYRUP 10 ML UDC PO ONE (16:38)
[2020-01-02] MEDS ORDERED: DEXAMETHASONE 10 MG/ML VIAL PO STA (16:38)
--- NOTE | 2020-01-02 16:40 | ED Physician Documentation ---
PD HPI BACK PAIN - Stated complaint Stated Complaint: FLANK PX - Chief complaint Chief Complaint: Back Pain - History obtained from History obtained from: Patient - History of Present Illness Timing - onset: How many weeks ago (3) Timing - duration: Weeks (3) Timing - details: Abrupt onset, Still present Location: Lower Quality: Pain, Spasm, Sharp Associated symptoms: No: Fever, Weakness, Numbness, Incontinent of urine, Unable to urinate, Hematuria, Incontinent of stool Improves with: Rest, Position Worsened by: Movement Similar symptoms before: Has not had sx before Recently seen: Not recently seen - Additional information Additional information: 59-year-old 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 He continues to have this pain is become concerned and is come to the hospital for evaluation. Review of Systems Constitutional: denies: Fever Eyes: denies: Decreased vision Cardiac: denies: Chest pain / pressure Respiratory: denies: Dyspnea, Cough GI: denies: Abdominal Pain, Nausea, Vomiting Skin: denies: Rash Musculoskeletal: reports: Back pain. denies: Neck pain, Extremity pain PD PAST MEDICAL HISTORY - Past Medical History Cardiovascular: High cholesterol Respiratory: COPD, Emphysema, Sleep apnea, Other Neuro: Other Endocrine/Autoimmune: Type 2 diabetes GI: GERD, Hiatal hernia, Other : None HEENT: Chronic hearing loss Psych: Depression, Anxiety, Schizophrenia, Panic attacks Musculoskeletal: None Derm: None - Past Surgical History Past Surgical History: Yes General: EGD Ortho: Other HEENT: Other - Present Medications Home Medications: Ambulatory Orders Medication Instructions Recorded Confirmed Aripiprazole [Abilify] 15 mg PO DAILY 06/18/12 08/30/16 Cholecalciferol (Vitamin D3) 5,000 unit PO DAILY 06/18/12 08/30/16 [Vitamin D] Divalproex ER [Depakote ER] 500 mg PO BID 06/18/12 08/30/16 Multivitamin [Multivitamins] 1 each PO DAILY 06/18/12 08/30/16 Pantoprazole Sodium [Protonix] 40 mg PO DAILY 06/18/12 08/30/16 QUEtiapine [SEROquel] 600 mg PO QPM 06/18/12 08/30/16 Albuterol Sulfate [Albuterol 0.083 mg PO TID PRN 11/01/13 08/30/16 Sulfate Hfa] Albuterol Sulfate [Proair Hfa] 2 inhaler INH DAILY PRN 11/01/13 08/30/16 Atorvastatin [Lipitor] 10 mg PO QPM 11/01/13 08/30/16 Ketotifen Fumarate [Eye Itch 5 ml OP DAILY PRN 11/01/13 08/30/16 Relief] Fluticasone [Flonase] 2 spray INH DAILY PRN 09/05/14 08/30/16 Tiotropium [Spiriva] 1 puffs INH DAILY 09/05/14 08/30/16 Citalopram [CeleXA] 10 mg PO DAILY 08/24/15 08/30/16 Loratadine [Claritin] 10 mg PO DAILY 08/24/15 08/30/16 Simethicone [Gas Relief] 1 tab PO DAILY PRN 08/30/16 08/30/16 Doxycycline Hyclate 100 mg PO BID #15 capsule 01/18/18 Naproxen 375 mg PO BID #20 tablet 01/18/18 Meloxicam [Mobic] 15 mg PO DAILY PRN #20 tablet 01/02/20 - Allergies Allergies/Adverse Reactions: Allergies Allergy/AdvReac Type Severity Reaction Status Date / Time No Known Drug Allergies Allergy Verified 01/02/20 15:34 - Social History Does the pt smoke?: Yes Smoking Status: Current every day smoker Does the pt drink ETOH?: Yes Does the pt have substance abuse?: No - Immunizations Immunizations are current?: Yes - POLST Patient has POLST: No PD ED PE NORMAL - Vitals Vital signs reviewed: Yes (normal) - General General: Alert and oriented X 3, No acute distress, Well developed/nourished - HEENT HEENT: Atraumatic, PERRL, EOMI - Respiratory Respiratory: No respiratory distress - Back Back: No CVA TTP, Other (mild tenderness to the lumbar spine over the mid and upper L spine ) - Derm Derm: Normal color, Warm and dry, No rash - Extremities Extremities: No deformity, No edema - Neuro Neuro: Alert and oriented X 3, application development team lead 2-12 intact, No motor deficit, No sensory deficit, Normal speech Eye Opening: Spontaneous Motor: Obeys Commands Verbal: Oriented GCS Score: 15 - Psych Psych: Normal mood, Normal affect Results - Vitals Vitals: Vital Signs - 24 hr 01/02/20 01/02/20 01/02/20 15:29 17:30 19:00 Temperature 36.8 C 36.2 C L Heart Rate 88 72 79 Respiratory 20 16 18 Rate Blood Pressure 120/75 128/73 129/78 O2 Saturation 93 96 97 Oxygen O2 Source [] Nasal cannula O2 Source Room air - Rads (name of study) lumbar spine Radiology: Prelim report reviewed (Impression: No acute fractures are seen. Please correlate with focal tenderness. If there is point tenderness (or other clinical concern for a fracture not seen on these plain films) then please consider a dedicated CT study for short-term follow-up plain film series for further evaluation. Promi), EMP read indepedently, See rad report PD MEDICAL DECISION MAKING - ED course Complexity details: reviewed old records, reviewed results, re-evaluated patient, considered differential, d/w patient ED course: 59-year-old schizophrenic male with developmental delay has a contusion to his back and he has improvement in his pain with the use of Toradol and dexamethason e. We will place him on a course of Mobic. Departure - Departure Disposition: 01 Home, Self Care Clinical Impression: Lumbar contusion Qualifiers: Encounter type: initial encounter Qualified Code(s): S30.0XXA - Contusion of lower back and pelvis, initial encounter Condition: Stable Instructions: ED Contusion Back Follow-Up: [facility] [Provider Group] Prescriptions: Meloxicam [Mobic] 15 mg PO DAILY PRN #20 tablet PRN Reason: pain Discharge Date/Time: 01/02/20 19:04
--- NOTE | 2020-01-02 17:56 | XRAY Report ---
PROCEDURE: Lumbar Spine 2 View INDICATIONS: fall upper lumbar pain TECHNIQUE: 2 views of the lumbar spine were acquired. COMPARISON: 09/05/2014 FINDINGS: Bones: 5 [id number] vertebrae are present. There is normal bony alignment. No vertebral body compression fractures. No suspicious bony lesions. Moderate to severe disc space narrowing is seen at L4-L5 and L5-S1. Associated endplate irregularity and sclerosis are seen. Facet arthropathy is seen, which is most prominent inferiorly. Soft tissues: Overlying bowel gas pattern is normal. No suspicious soft tissue calcifications. IMPRESSION: No acute fractures are seen. Please correlate with focal tenderness. If there is point tenderness (or other clinical concern for a fracture not seen on these plain films) then please consider a dedicated CT study or a short term fo llow up plain film series for further evaluation. Prominent focal lower lumbar spine degenerative changes are seen, which have progressed compared to 2 015. Reviewed by: John Sarmiento MD on 01/02/2020 4:54 PM [place] Approved by: John Sarmiento MD on 01/02/2020 4:54 PM [facility] [[email or web address]] Station ID: [id number]
[2020-01-02 19:04] VITALS: BP 129/78
== END 2020-01-02 19:04 | disposition home or self-care (01) ==
LOC: EDUNIT# → ED 15:21
DX: S30.0XXA Contusion of lower back and pelvis, initial encounter (principal); W19.XXXA Unspecified fall, initial encounter; F20.9 Schizophrenia, unspecified; J43.9 Emphysema, unspecified; E11.9 Type 2 diabetes mellitus without complications; F17.200 Nicotine dependence, unspecified, uncomplicated; R62.50 Unspecified lack of expected normal physiological development in childhood
CPT/HCPCS: 72100; 96372; 99283; 99284; A9270

== ENCOUNTER 2020-01-10 21:22 | Outpatient (CLI) | payer MEDICARE, MEDICAID | END 2020-01-10 21:23 | disposition home or self-care (01) | LOC: COV 21:22 | PROVIDERS: ATTEND Family Medicine | DX: U07.1 COVID-19 (principal) ==

== ENCOUNTER 2020-03-05 11:25 | Outpatient (CLI) | payer MEDICARE, MEDICAID ==
[2020-03-05 18:43] LABS: HEMOGLOBIN A1c% 5.9 % (4.27-6.07)
[2020-03-05 19:04] LABS: CALCIUM 9.1 mg/dL (8.5-10.3); CREATININE 0.7 mg/dL (0.6-1.2)
== END 2020-03-05 23:59 | disposition home or self-care (01) ==
LOC: LAB.WCP 11:25
PROVIDERS: ATTEND Nurse Practitioner Family
DX: E11.9 Type 2 diabetes mellitus without complications (principal)
CPT/HCPCS: 36415; 80048; 83036

== ENCOUNTER 2020-07-09 11:13 | Outpatient (CLI) | payer MEDICARE, MEDICAID | END 2020-07-09 11:14 | disposition EMS.NT | LOC: EMS 11:13 | DX: Z03.89 Encounter for observation for other suspected diseases and conditions ruled out (principal) ==

== ENCOUNTER 2021-02-09 19:59 | Outpatient (CLI) | payer MEDICARE, MEDICAID | END 2021-02-09 20:00 | disposition critical access hospital (66) | LOC: EMS 19:59 | DX: R44.8 Other symptoms and signs involving general sensations and perceptions (principal) | CPT/HCPCS: A0425; A0429 ==

== ENCOUNTER 2021-02-09 20:17 | Emergency (ER) | payer MEDICARE, MEDICAID ==
--- NOTE | 2021-02-09 20:48 | ED Physician Documentation ---
PD HPI MHE - Stated complaint Stated Complaint: MHE - Chief complaint Chief Complaint: MHE - History obtained from History obtained from: Patient, EMS - History of Present Illness Primary symptom: Anxiety, Other (sensation of electrical shock) Timing - onset: Enter time (11:00), Today Recently seen: Not recently seen - Additional information Additional information: RENEA. patient says he was in his garage today at approximately 11 AM when he felt electrical shock sensation throughout his entire body, lasting only a few seconds. No apparent exposure to electrical current source at the time. Per EMS, patient subsequently thought there were people outside of his garage whom he heard talking and he became anxious and thus called 911. On my HPI, patient denies hearing anyone outside of his garage and he denies thinking there was anyone there. Furthermore, he denies feeling anxious. Review of Systems Cardiac: reports: Reviewed and negative Respiratory: reports: Reviewed and negative GI: reports: Reviewed and negative Psychiatric: denies: Depressed, Suicidal, Homicidal, Hallucinations (denies on my HPI/ROS), Delusions (denies on my HPI/ROS), Anxiety (denies on my HPI/ROS) PD PAST MEDICAL HISTORY - Past Medical History Past Medical History: Yes Cardiovascular: High cholesterol Respiratory: COPD, Emphysema, Sleep apnea, Other Neuro: Other Endocrine/Autoimmune: Type 2 diabetes GI: GERD, Hiatal hernia, Other : None HEENT: Chronic hearing loss Psych: Depression, Anxiety, Schizophrenia, Panic attacks Musculoskeletal: None Derm: None - Past Surgical History Past Surgical History: Yes General: EGD Ortho: Other HEENT: Other - Present Medications Home Medications: Ambulatory Orders Medication Instructions Recorded Confirmed Aripiprazole [Abilify] 15 mg PO DAILY 06/18/12 08/30/16 Cholecalciferol (Vitamin D3) 5,000 unit PO DAILY 06/18/12 08/30/16 [Vitamin D] Divalproex ER [Depakote ER] 500 mg PO BID 06/18/12 08/30/16 Multivitamin [Multivitamins] 1 each PO DAILY 06/18/12 08/30/16 Pantoprazole Sodium [Protonix] 40 mg PO DAILY 06/18/12 08/30/16 QUEtiapine [SEROquel] 600 mg PO QPM 06/18/12 08/30/16 Albuterol Sulfate [Albuterol 0.083 mg PO TID PRN 11/01/13 08/30/16 Sulfate Hfa] Albuterol Sulfate [Proair Hfa] 2 inhaler INH DAILY PRN 11/01/13 08/30/16 Atorvastatin [Lipitor] 10 mg PO QPM 11/01/13 08/30/16 Ketotifen Fumarate [Eye Itch 5 ml OP DAILY PRN 11/01/13 08/30/16 Relief] Fluticasone [Flonase] 2 spray INH DAILY PRN 09/05/14 08/30/16 Tiotropium [Spiriva] 1 puffs INH DAILY 09/05/14 08/30/16 Citalopram [CeleXA] 10 mg PO DAILY 08/24/15 08/30/16 Loratadine [Claritin] 10 mg PO DAILY 08/24/15 08/30/16 Simethicone [Gas Relief] 1 tab PO DAILY PRN 08/30/16 08/30/16 Doxycycline Hyclate 100 mg PO BID #15 capsule 01/18/18 Naproxen 375 mg PO BID #20 tablet 01/18/18 Meloxicam [Mobic] 15 mg PO DAILY PRN #20 tablet 01/02/20 - Allergies Allergies/Adverse Reactions: Allergies Allergy/AdvReac Type Severity Reaction Status Date / Time No Known Drug Allergies Allergy Verified 02/09/21 20:24 - Social History Does the pt smoke?: Yes Smoking Status: Current every day smoker Does the pt drink ETOH?: Yes Does the pt have substance abuse?: No - Immunizations Immunizations are current?: Yes - POLST Patient has POLST: No PD ED PE NORMAL - Vitals Vital signs reviewed: Yes - General General: Alert and oriented X 3, No acute distress, Well developed/nourished - HEENT HEENT: Atraumatic - Neck Neck: Supple, no meningeal sign - Cardiac Cardiac: RRR, No murmur - Respiratory Respiratory: No respiratory distress, Clear bilaterally - Abdomen Abdomen: Soft, Non tender - Neuro Neuro: Alert and oriented X 3, rigging slinger 2-12 intact, No motor deficit, No sensory deficit, Normal speech Eye Opening: Spontaneous Motor: Obeys Commands Verbal: Oriented GCS Score: 15 - Psych Psych: Other (flat affect) Results - Vitals Vitals: Oxygen O2 Source [With Activity] Nasal cannula O2 Source Room air - Labs Labs: Laboratory Tests 02/09/21 02/09/21 02/09/21 20:30 20:39 20:39 WBC 7.9 RBC 5.02 Hgb 15.0 Hct 45.0 MCV 89.6 MCH 29.9 MCHC 33.3 RDW 14.8 Plt Count 250 MPV 9.7 Neut # (Auto) 4.5 Lymph # (Auto) 2.2 [place] # (Auto) 1.0 Eos # (Auto) 0.1 Baso # (Auto) 0.0 Absolute Nucleated RBC 0.00 Nucleated RBC % 0.0 Sodium 142 Potassium 4.2 Chloride 98 L Carbon Dioxide 30 Anion Gap 14.0 H BUN 15 Creatinine 0.9 Estimated GFR (MDRD) 86 L Glucose 85 Calcium 9.2 Total Bilirubin 0.5 AST 18 ALT 13 Alkaline Phosphatase 57 Total Protein 6.5 L Albumin 4.1 Globulin 2.4 Albumin/Globulin Ratio 1.7 Lipase 26 TSH Urine Color Urine Clarity Urine pH Ur Specific [place] Urine Protein Urine Glucose (UA) Urine Ketones Urine Occult Blood Urine Nitrite Urine Bilirubin Urine Urobilinogen Ur Leukocyte Esterase Ur Microscopic Review Urine Culture Comments Nasal Adenovirus (PCR) NOT DETECTED Nasal B. parapertussis DNA (PCR) NOT DETECTED Nasal Coronavir 229E PCR NOT DETECTED Nasal Coronavir HKU1 PCR NOT DETECTED Nasal Coronavir NL63 PCR NOT DETECTED Nasal Coronavir OC43 PCR NOT DETECTED Nasal Enterovir/Rhinovir PCR NOT DETECTED Nasal Influenza B PCR NOT DETECTED Nasal Influenza A PCR NOT DETECTED Nasal Parainfluen 1 PCR NOT DETECTED Nasal Parainfluen 2 PCR NOT DETECTED Nasal Parainfluen 3 PCR NOT DETECTED Nasal Parainfluen 4 PCR NOT DETECTED Nasal RSV (PCR) NOT DETECTED Nasal B.pertussis DNA PCR NOT DETECTED Nasal C.pneumoniae (PCR) NOT DETECTED Mundo Human Metapneumo PCR NOT DETECTED Nasal M.pneumoniae (PCR) NOT DETECTED Nasal SARS-CoV-2 (PCR) NOT DETECTED Salicylates < 6.0 Urine Opiates Screen Ur Oxycodone Screen Urine Methadone Screen Ur Propoxyphene Screen Acetaminophen < 10 L Ur Barbiturates Screen Ur Tricyclics Screen Ur Phencyclidine Scrn Ur Amphetamine Screen U Methamphetamines Scrn U Benzodiazepines Scrn Urine Cocaine Screen U Cannabinoids Screen Ethyl Alcohol < 5.0 02/09/21 02/10/21 20:39 00:33 WBC RBC Hgb Hct MCV MCH MCHC RDW Plt Count MPV Neut # (Auto) Lymph # (Auto) [place] # (Auto) Eos # (Auto) Baso # (Auto) Absolute Nucleated RBC Nucleated RBC % Sodium Potassium Chloride Carbon Dioxide Anion Gap BUN Creatinine Estimated GFR (MDRD) Glucose Calcium Total Bilirubin AST ALT Alkaline Phosphatase Total Protein Albumin Globulin Albumin/Globulin Ratio Lipase TSH 4.33 Urine Color YELLOW Urine Clarity CLEAR Urine pH 6.5 Ur Specific [place] 1.025 Urine Protein NEGATIVE Urine Glucose (UA) NEGATIVE Urine Ketones 15 H Urine Occult Blood NEGATIVE Urine Nitrite NEGATIVE Urine Bilirubin NEGATIVE Urine Urobilinogen 1 (NORMAL) Ur Leukocyte Esterase NEGATIVE Ur Microscopic Review NOT INDICATED Urine Culture Comments NOT INDICATED Nasal Adenovirus (PCR) Nasal B. parapertussis DNA (PCR) Nasal Coronavir 229E PCR Nasal Coronavir HKU1 PCR Nasal Coronavir NL63 PCR Nasal Coronavir OC43 PCR Nasal Enterovir/Rhinovir PCR Nasal Influenza B PCR Nasal Influenza A PCR Nasal Parainfluen 1 PCR Nasal Parainfluen 2 PCR Nasal Parainfluen 3 PCR Nasal Parainfluen 4 PCR Nasal RSV (PCR) Nasal B.pertussis DNA PCR Nasal C.pneumoniae (PCR) Mundo Human Metapneumo PCR Nasal M.pneumoniae (PCR) Nasal SARS-CoV-2 (PCR) Salicylates Urine Opiates Screen NEGATIVE Ur Oxycodone Screen NEGATIVE Urine Methadone Screen NEGATIVE Ur Propoxyphene Screen NEGATIVE Acetaminophen Ur Barbiturates Screen NEGATIVE Ur Tricyclics Screen POSITIVE H Ur Phencyclidine Scrn NEGATIVE Ur Amphetamine Screen NEGATIVE U Methamphetamines Scrn NEGATIVE U Benzodiazepines Scrn NEGATIVE Urine Cocaine Screen NEGATIVE U Cannabinoids Screen NEGATIVE Ethyl Alcohol PD MEDICAL DECISION MAKING - ED course Complexity details: considered differential, d/w patient ED course: patient says he had shock-like sensation while in garage earlier today (11 AM). EMS reports that patient became anxious and called 911 when he subsequently thought he heard people outside the garage. However, patient denies this on my HPI and says his only concern was the shock-like sensation. He cannot provide a clear reason he did not call 911 until this evening given that the shock-like sensation happened at 11 AM. He is AAOx3 and denies SI, AH, VH. His exam is unremarkable aside from flat affect. He is in NAD and says he feels well and wants to be discharged home. I offered to consult telepsychiatry for him (explaining that I was told he was feeling anxious and might have been having hallucinations earlier tonight), which he declines. Departure - Departure Disposition: 01 Home, Self Care Clinical Impression: Electrical shock sensation Condition: Good Instructions: ED Symptoms No Dx Comments: It is not clear what caused the shock-like sensation you are describing. Your blood tests are reassuring; there are no concerning findings. You have indicated you feel well and are comfortable with being discharged home. Please return or call 911 at any time you feel you need to be reevaluated Discharge Date/Time: 02/10/21 01:36
[2021-02-09 20:49] LABS: BASOPHILS % (AUTO) 0.4 %; EOSINOPHILS # (AUTO) 0.1 10^3/uL (0.0-0.7); EOSINOPHILS % (AUTO) 1.3 %; LYMPHOCYTES # (AUTO) 2.2 10^3/uL (1.5-3.5); MEAN CORPUSCULAR HEMOGLOBIN 29.9 pg (27.0-31.0); MEAN CORPUSCULAR HGB CONC 33.3 g/dL (32.0-36.0); MEAN CORPUSCULAR VOLUME 89.6 fL (80.0-94.0); MEAN PLATELET VOLUME 9.7 fL (7.4-11.4); MONOCYTES % (AUTO) 12.5 %; NEUTROPHILS # (AUTO) 4.5 10^3/uL (1.5-6.6); NEUTROPHILS % (AUTO) 56.9 %; PLT - PLATELET COUNT 250 10^3/uL (130-450); RED BLOOD COUNT 5.02 10^6/uL (4.70-6.10); RED CELL DISTRIBUTION WIDTH 14.8 % (12.0-15.0); WHITE BLOOD COUNT 7.9 x10^3/uL (4.8-10.8)
[2021-02-09 22:09] LABS: B. PARAPERTUSSIS- RESP PCR PAN NOT DETECTED; B. PERTUSSIS- RESP PCR PANEL NOT DETECTED; C. PNEUMONIAE- RESP PCR PANEL NOT DETECTED; CORONAVIRUS 229E-RESP PCR NOT DETECTED; CORONAVIRUS HKU1-RESP PCR NOT DETECTED; CORONAVIRUS NL63-RESP PCR NOT DETECTED; CORONAVIRUS OC43-RESP PCR NOT DETECTED; HUMAN METAPNEUMOVIRUS NOT DETECTED; INFLUENZA A- RESP PCR PANEL NOT DETECTED; INFLUENZA B - RESP PCR PANEL NOT DETECTED; M. PNEUMONIAE- RESP PCR PANEL NOT DETECTED; PARAINFLUENZA VIRUS 1 NOT DETECTED; PARAINFLUENZA VIRUS 2 NOT DETECTED; PARAINFLUENZA VIRUS 3 NOT DETECTED; PARAINFLUENZA VIRUS 4 NOT DETECTED; RHINOVIRUS/ENTEROVIRUS NOT DETECTED; RSV- RESP PCR PANEL NOT DETECTED; SARS-CoV-2 -RESP PCR PANEL NOT DETECTED
[2021-02-09 23:06] LABS: ACETAMINOPHEN < 10 ug/mL (10-30); ALBUMIN 4.1 g/dL (3.2-5.5); ALBUMIN/GLOBULIN RATIO 1.7 (1.0-2.2); ALKALINE PHOSPHATASE 57 IU/L (42-121); ALT ALANINE AMINOTRANSFERASE 13 IU/L (10-60); AST ASPARTATE AMINOTRANSFERASE 18 IU/L (10-42); BILIRUBIN,TOTAL 0.5 mg/dL (0.2-1.0); BUN - BLOOD UREA NITROGEN 15 mg/dL (6-20); CALCIUM 9.2 mg/dL (8.5-10.3); CARBON DIOXIDE - CO2 30 mmol/L (21-32); CHLORIDE 98 mmol/L (101-111); CREATININE 0.9 mg/dL (0.6-1.2); ETOH - ETHANOL < 5.0 mg/dL; GFR - MDRD 86 (>89); GLUCOSE 85 mg/dL (70-100); LIPASE 26 U/L (22-51); POTASSIUM 4.2 mmol/L (3.5-5.0); SALICYLATE < 6.0 mg/dL; SODIUM 142 mmol/L (135-145); TOTAL PROTEIN 6.5 g/dL (6.7-8.2)
[2021-02-10 00:47] LABS: MUDS CUTOFF CONCENTRATIONS CUTOFF CONC BELOW:
[2021-02-10 00:50] LABS: BILIRUBIN,URINE NEGATIVE (NEGATIVE); GLUCOSE, URINE (UA) NEGATIVE (NEGATIVE); KETONES,URINE (UA) 15 mg/dL (NEGATIVE); LEUKOCYTE ESTERASE, URINE NEGATIVE (NEGATIVE); NITRITE,URINE NEGATIVE (NEGATIVE); OCCULT BLOOD,URINE NEGATIVE (NEGATIVE); PH,URINE 6.5 PH (5.0-7.5); PROTEIN,URINE NEGATIVE (NEGATIVE); UROBILINOGEN,URINE 1 (NORMAL) E.U./dL (NORMAL)
[2021-02-10 00:53] LABS: CLARITY,URINE CLEAR (CLEAR)
[2021-02-10 01:04] LABS: AMPHETAMINE SCREEN,URINE NEGATIVE (NEGATIVE); BARBITURATE SCREEN,UR NEGATIVE (NEGATIVE); BENZODIAZEPINES SCREEN, URINE NEGATIVE (NEGATIVE); COCAINE SCREEN URINE NEGATIVE (NEGATIVE); METHADONE SCREEN, URINE NEGATIVE (NEGATIVE); METHAMPHETAMINES SCREEN, URINE NEGATIVE (NEGATIVE); OPIATE SCREEN, URINE NEGATIVE (NEGATIVE); THC CANNABINOID SCREEN, URINE NEGATIVE (NEGATIVE); TRICYCLIC ANTIDEPRESSANT,URINE POSITIVE (NEGATIVE)
[2021-02-10 01:05] LABS: OXYCODONE SCREEN, URINE NEGATIVE (NEGATIVE); PROPOXYPHENE SCREEN, URINE NEGATIVE (NEGATIVE)
[2021-02-10 01:37] VITALS: BP 138/81
== END 2021-02-10 01:36 | disposition home or self-care (01) ==
LOC: EDUNIT# → ED 20:17
DX: F17.200 Nicotine dependence, unspecified, uncomplicated (principal); E11.9 Type 2 diabetes mellitus without complications; J43.9 Emphysema, unspecified; R20.8 Other disturbances of skin sensation; Z20.822 Contact with and (suspected) exposure to COVID-19
CPT/HCPCS: 36415; 80053; 80306; 80307; 81003; 83690; 84443; 85025; 87631; 99282; 99283; G0480; 0202U; 80320; 80329; 81001; 87086

== ENCOUNTER 2021-04-14 13:25 | Outpatient (CLI) | payer MEDICARE, MEDICAID | END 2021-04-14 13:26 | disposition critical access hospital (66) | LOC: EMS 13:25 | DX: S80.812A Abrasion, left lower leg, initial encounter (principal); V03.19XA Pedestrian with other conveyance injured in collision with car, pick-up truck or van in traffic accident, initial encounter; Y92.414 Local residential or business street as the place of occurrence of the external cause | CPT/HCPCS: A0425; A0429 ==

== ENCOUNTER 2021-04-14 13:44 | Emergency (ER) | payer MEDICARE, MEDICAID ==
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
[2021-04-14 15:23] LABS: BASOPHILS % (AUTO) 0.5 %; EOSINOPHILS # (AUTO) 0.2 10^3/uL (0.0-0.7); EOSINOPHILS % (AUTO) 1.8 %; HCT - HEMATOCRIT 46.3 % (42.0-52.0); HGB - HEMOGLOBIN 15.3 g/dL (14.0-18.0); LYMPHOCYTES # (AUTO) 1.9 10^3/uL (1.5-3.5); LYMPHOCYTES % (AUTO) 22.4 %; MEAN CORPUSCULAR HEMOGLOBIN 30.2 pg (27.0-31.0); MEAN CORPUSCULAR VOLUME 91.3 fL (80.0-94.0); MEAN PLATELET VOLUME 9.9 fL (7.4-11.4); MONOCYTES % (AUTO) 11.6 %; NEUTROPHILS # (AUTO) 5.2 10^3/uL (1.5-6.6); NEUTROPHILS % (AUTO) 62.6 %; PLT - PLATELET COUNT 254 10^3/uL (130-450); RED BLOOD COUNT 5.07 10^6/uL (4.70-6.10); RED CELL DISTRIBUTION WIDTH 14.6 % (12.0-15.0); WHITE BLOOD COUNT 8.4 x10^3/uL (4.8-10.8)
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
[2021-04-14 15:40] LABS: ALBUMIN 3.8 g/dL (3.2-5.5); ALBUMIN/GLOBULIN RATIO 1.4 (1.0-2.2); BILIRUBIN,TOTAL 0.5 mg/dL (0.2-1.0); CALCIUM 9.5 mg/dL (8.5-10.3); CREATININE 0.7 mg/dL (0.6-1.2); POTASSIUM 4.5 mmol/L (3.5-5.0); TOTAL PROTEIN 6.6 g/dL (6.7-8.2)
[2021-04-14 16:40] LABS: B. PARAPERTUSSIS- RESP PCR PAN NOT DETECTED; B. PERTUSSIS- RESP PCR PANEL NOT DETECTED; C. PNEUMONIAE- RESP PCR PANEL NOT DETECTED; CORONAVIRUS 229E-RESP PCR NOT DETECTED; CORONAVIRUS HKU1-RESP PCR NOT DETECTED; CORONAVIRUS NL63-RESP PCR NOT DETECTED; CORONAVIRUS OC43-RESP PCR NOT DETECTED; HUMAN METAPNEUMOVIRUS NOT DETECTED; INFLUENZA A- RESP PCR PANEL NOT DETECTED; INFLUENZA B - RESP PCR PANEL NOT DETECTED; M. PNEUMONIAE- RESP PCR PANEL NOT DETECTED; PARAINFLUENZA VIRUS 1 NOT DETECTED; PARAINFLUENZA VIRUS 2 NOT DETECTED; PARAINFLUENZA VIRUS 3 NOT DETECTED; PARAINFLUENZA VIRUS 4 NOT DETECTED; RHINOVIRUS/ENTEROVIRUS NOT DETECTED; RSV- RESP PCR PANEL NOT DETECTED; SARS-CoV-2 -RESP PCR PANEL NOT DETECTED
[2021-04-14 17:02] VITALS: BP 141/88
[2021-04-14] MEDS ORDERED: MORPHINE 2 MG/ML CARPUJECT IVP STA ×2 (17:03→17:43)
[2021-04-14] MEDS ORDERED: ONDANSETRON 4 MG/2 ML VIAL IVP STA (17:33)
[2021-04-14] MEDS ORDERED: ENOXAPARIN 80 MG/0.8 ML SYRINGE SUBQ STA (17:39)
== END 2021-04-14 17:58 | disposition short-term general hospital (02) ==
LOC: EDUNIT# → ED 13:44
DX: S82.252A Displaced comminuted fracture of shaft of left tibia, initial encounter for closed fracture (principal); S82.452A Displaced comminuted fracture of shaft of left fibula, initial encounter for closed fracture; V03.00XA Pedestrian on foot injured in collision with car, pick-up truck or van in nontraffic accident, initial encounter; E11.9 Type 2 diabetes mellitus without complications; F17.200 Nicotine dependence, unspecified, uncomplicated; Z20.822 Contact with and (suspected) exposure to COVID-19; Z99.3 Dependence on wheelchair
CPT/HCPCS: 29515; 36415; 73590; 73610; 80053; 85025; 87631; 96372; 96374; 96375; 99284; 99285; J1650; 0202U

== ENCOUNTER 2021-04-14 17:53 | Outpatient (CLI) | payer MEDICARE, MEDICAID | END 2021-04-14 17:54 | disposition short-term general hospital (02) | LOC: EMS 17:53 | PROVIDERS: ATTEND Emergency Medicine | DX: S82.402A Unspecified fracture of shaft of left fibula, initial encounter for closed fracture (principal); S82.202A Unspecified fracture of shaft of left tibia, initial encounter for closed fracture; V09.20XA Pedestrian injured in traffic accident involving unspecified motor vehicles, initial encounter | CPT/HCPCS: A0425; A0428 ==

== ENCOUNTER 2021-04-30 19:09 | Outpatient (CLI) | payer MEDICARE, MEDICAID ==
[2021-04-30 22:23] LABS: BASOPHILS # (AUTO) 0.1 10^3/uL (0.0-0.1); BASOPHILS % (AUTO) 0.5 %; EOSINOPHILS # (AUTO) 0.2 10^3/uL (0.0-0.7); EOSINOPHILS % (AUTO) 1.8 %; HCT - HEMATOCRIT 37.2 % (42.0-52.0); HGB - HEMOGLOBIN 11.9 g/dL (14.0-18.0); LYMPHOCYTES # (AUTO) 2.4 10^3/uL (1.5-3.5); LYMPHOCYTES % (AUTO) 23.8 %; MEAN CORPUSCULAR HEMOGLOBIN 29.5 pg (27.0-31.0); MEAN CORPUSCULAR VOLUME 92.3 fL (80.0-94.0); MEAN PLATELET VOLUME 9.5 fL (7.4-11.4); MONOCYTES # (AUTO) 1.2 10^3/uL (0.0-1.0); MONOCYTES % (AUTO) 11.3 %; NEUTROPHILS # (AUTO) 6.1 10^3/uL (1.5-6.6); PLT - PLATELET COUNT 746 10^3/uL (130-450); RED BLOOD COUNT 4.03 10^6/uL (4.70-6.10); WHITE BLOOD COUNT 10.2 x10^3/uL (4.8-10.8)
[2021-04-30 22:40] LABS: ALBUMIN 3.2 g/dL (3.2-5.5); BILIRUBIN,TOTAL 0.2 mg/dL (0.2-1.0); CREATININE 0.6 mg/dL (0.6-1.2); POTASSIUM 5.1 mmol/L (3.5-5.0); TOTAL PROTEIN 6.4 g/dL (6.7-8.2)
[2021-05-01 09:25] LABS: ESTIMATED AVERAGE GLUCOSE 126 mg/dL (70-100)
[2021-05-01 18:23] LABS: PLATELET MORPHOLOGY RARE GIANT PLATELETS (NORMAL); SLIDE REVIEW? Indicated
[2021-05-01 18:24] LABS: PLATELET ESTIMATE, MANUAL INCREASED (>450,000) (NORMAL)
== END 2021-04-30 23:59 | disposition home or self-care (01) ==
LOC: LAB.R 19:09
PROVIDERS: ATTEND Hospitalist
DX: E87.6 Hypokalemia (principal); D64.9 Anemia, unspecified; E11.9 Type 2 diabetes mellitus without complications
CPT/HCPCS: 80053; 83036; 85025

== ENCOUNTER 2021-06-03 09:11 | Outpatient (CLI) | payer MEDICARE, MEDICAID ==
[2021-06-03] MEDS ORDERED: ALBUTEROL 1 PUFF INH STA (12:25)
== END 2021-06-03 09:12 | disposition home or self-care (01) ==
LOC: RT 09:11
PROVIDERS: ATTEND Hospitalist
DX: J44.9 Chronic obstructive pulmonary disease, unspecified (principal); G47.33 Obstructive sleep apnea (adult) (pediatric)
CPT/HCPCS: 94060; 94729

== ENCOUNTER 2021-08-14 11:27 | Outpatient (CLI) | payer MEDICARE, MEDICAID ==
[2021-08-14 17:54] LABS: BASOPHILS # (AUTO) 0.1 10^3/uL (0.0-0.1); BASOPHILS % (AUTO) 0.7 %; EOSINOPHILS # (AUTO) 0.3 10^3/uL (0.0-0.7); EOSINOPHILS % (AUTO) 4.4 %; HCT - HEMATOCRIT 45.6 % (42.0-52.0); HGB - HEMOGLOBIN 14.2 g/dL (14.0-18.0); LYMPHOCYTES # (AUTO) 2.6 10^3/uL (1.5-3.5); LYMPHOCYTES % (AUTO) 34.8 %; MEAN CORPUSCULAR HEMOGLOBIN 27.3 pg (27.0-31.0); MEAN CORPUSCULAR HGB CONC 31.1 g/dL (32.0-36.0); MEAN CORPUSCULAR VOLUME 87.5 fL (80.0-94.0); MEAN PLATELET VOLUME 10.2 fL (7.4-11.4); MONOCYTES # (AUTO) 1.1 10^3/uL (0.0-1.0); MONOCYTES % (AUTO) 14.5 %; NEUTROPHILS # (AUTO) 3.4 10^3/uL (1.5-6.6); NEUTROPHILS % (AUTO) 44.5 %; PLT - PLATELET COUNT 363 10^3/uL (130-450); RED BLOOD COUNT 5.21 10^6/uL (4.70-6.10); RED CELL DISTRIBUTION WIDTH 15.8 % (12.0-15.0); WHITE BLOOD COUNT 7.5 x10^3/uL (4.8-10.8)
== END 2021-08-14 11:28 | disposition home or self-care (01) ==
LOC: LAB.N 11:27
PROVIDERS: ATTEND Nurse Practitioner
DX: M79.605 Pain in left leg (principal)
CPT/HCPCS: 36415; 85025

== ENCOUNTER 2021-08-19 08:38 | Outpatient (CLI) | payer MEDICARE, MEDICAID ==
--- NOTE | 2021-08-19 14:06 | Ultrasound Report ---
PROCEDURE: Duplex Lwr Ext Arterial LT INDICATIONS: LEFT LEG PAIN TECHNIQUE: Color and pulse Doppler interrogation was performed of the left lower extremity arterial system, with image documentation. COMPARISON: None FINDINGS: Common femoral artery: 112 cm/sec, with biphasic flow. Deep femoral artery: 85 cm/sec, with biphasic flow. Proximal superficial femoral artery: 96 cm/sec, with biphasic flow. Mid superficial femoral artery: 156 cm/sec, with biphasic flow. Distal superficial femoral artery: 130 cm/sec, with biphasic flow. Popliteal artery: 95 cm/sec, with biphasic flow. Posterior tibial artery: 107 cm/sec, with biphasic flow. Anterior tibial artery/dorsalis pedis: 81 cm/sec, with biphasic flow. Goncalves-scale imaging description: Mild to moderate plaque IMPRESSION: No evidence of arterial insufficiency to the left lower extremity. Reviewed by: Sandra Cervantes MD on 08/19/2021 2:05 PM PDT Approved by: Sandra Cervantes MD on 08/19/2021 2:05 PM PDT Station ID: [id number]
--- NOTE | 2021-08-19 15:56 | Ultrasound Report ---
PROCEDURE: Duplex Ext Veins Left INDICATIONS: LEFT LEG PAIN TECHNIQUE: Real-time imaging, as well as color and pulse Doppler interrogation, were performed of the lower extr emity deep veins from the inguinal ligament to the popliteal fossa. COMPARISON: None. FINDINGS: The deep veins are normally compressible, and free of intraluminal thrombus. Color and pu lse Doppler demonstrate normal phasic intraluminal flow. There is normal augmentation response to di stal compression maneuver. IMPRESSION: No deep venous thrombosis. Reviewed by: Nisha Lucio MD on 08/19/2021 3:55 PM PDT Approved by: Nisha Lucio MD on 08/19/2021 3:55 PM PDT Station ID: [id number]
== END 2021-08-19 08:39 | disposition home or self-care (01) ==
LOC: DI 08:38
PROVIDERS: ATTEND Nurse Practitioner
DX: M79.605 Pain in left leg (principal)

== ENCOUNTER 2021-08-28 11:53 | Outpatient (CLI) | payer MEDICARE, MEDICAID ==
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
== END 2021-08-28 11:54 | disposition home or self-care (01) ==
LOC: DI 11:53
PROVIDERS: ATTEND Nurse Practitioner
DX: L03.116 Cellulitis of left lower limb (principal); S82.202D Unspecified fracture of shaft of left tibia, subsequent encounter for closed fracture with routine healing; S82.402D Unspecified fracture of shaft of left fibula, subsequent encounter for closed fracture with routine healing; M79.89 Other specified soft tissue disorders

== ENCOUNTER 2022-03-30 09:46 | Outpatient (CLI) | payer MEDICARE, MEDICAID ==
--- NOTE | 2022-03-30 10:40 | XRAY Report ---
PROCEDURE: Chest 2 View X-Ray INDICATIONS: COPD,ACUTE TECHNIQUE: 2 views of the chest were acquired. COMPARISON: 08/24/2015. FINDINGS: Surgical changes and devices: None. Lungs and pleura: No pleural effusions or pneumothorax. Chronic elevation of left hemidiaphragm. Carol ngs are clear. Mediastinum: Mediastinal contours are normal. Heart size is normal. Bones and chest wall: No suspicious bony abnormalities. Soft tissues appear unremarkable. IMPRESSION: No pulmonary infiltrates. Reviewed by: Brandan South MD on 03/30/2022 10:39 AM [facility] Approved by: Brandan South MD on 03/30/2022 10:39 AM [facility] Station ID: [id number]
== END 2022-03-30 09:47 | disposition home or self-care (01) ==
LOC: DI 09:46
PROVIDERS: ATTEND Physician Assistant Medical
DX: J44.1 Chronic obstructive pulmonary disease with (acute) exacerbation (principal)

== ENCOUNTER 2022-06-08 15:39 | Outpatient (CLI) | payer MEDICARE, MEDICAID ==
--- NOTE | 2022-06-08 17:39 | XRAY Report ---
PROCEDURE: Chest 2 View X-Ray INDICATIONS: SOA/COPD TECHNIQUE: 2 views of the chest were acquired. COMPARISON: 03/30/2022. FINDINGS: Surgical changes and devices: None. Lungs and pleura: No pleural effusions or pneumothorax. Chronic elevation of left hemidiaphragm is a gain seen unchanged from prior study. Hyperinflation is also noted. No focal infiltrate. Mediastinum: Mediastinal contours appear normal. Heart size is normal. Bones and chest wall: No suspicious bony lesions. Overlying soft tissues appear unremarkable. IMPRESSION: Chronic elevation of left hemidiaphragm and hyperinflation suggestive of COPD. No focal infiltrate, p leural effusion or pneumothorax. Reviewed by: Pio Lee MD on 06/08/2022 5:38 PM PDT Approved by: Pio Lee MD on 06/08/2022 5:38 PM PDT Station ID: [id number]
== END 2022-06-08 15:40 | disposition home or self-care (01) ==
LOC: DI 15:39
PROVIDERS: ATTEND Nurse Practitioner Gerontology
DX: J44.1 Chronic obstructive pulmonary disease with (acute) exacerbation (principal)

== ENCOUNTER 2022-06-25 06:46 | Day surgery (SDC) | payer MEDICARE, MEDICAID ==
[2022-06-25] MEDS ORDERED: LACTATED RINGERS 1,000 ML IV ONE ×2 (06:55→09:29)
--- NOTE | 2022-06-25 08:35 | ANESTHESIA ---
Pre-Anesthesia VS, & Labs - Diagnosis barrets esophagus and screening exam - Procedure EGD and colonoscopy Vital Signs: Temp Pulse Resp BP Pulse Ox O2 Flow Rate 35.8 C L 77 16 143/81 H 94 06/25/22 07:09 06/25/22 07:09 06/25/22 07:09 06/25/22 07:09 06/25/22 07:09 Height: 5 ft 6 in Weight (kg): 81.65 kg Body Mass Index: 29.0 BMI Classification: Overweight - NPO >8 hours - Lab Results Current Lab Results: Laboratory Tests 06/25/22 07:33: POC Whole Bld Glucose 97 Home Medications and Allergies Aripiprazole [Abilify] 15 mg PO DAILY 06/18/12 Cholecalciferol (Vitamin D3) [Vitamin D] 5,000 unit PO DAILY 06/18/12 Divalproex ER [Depakote ER] 500 mg PO BID 06/18/12 Multivitamin [Multivitamins] 1 each PO DAILY 06/18/12 Pantoprazole Sodium [Protonix] 40 mg PO BID 06/18/12 QUEtiapine [SEROquel] 300 mg PO QPM 06/18/12 Albuterol Sulfate [Albuterol Sulfate Hfa] 0.083 mg PO TID PRN 11/01/13 Albuterol Sulfate [Proair Hfa] 2 inhaler INH DAILY PRN 11/01/13 Atorvastatin [Lipitor] 10 mg PO QPM 11/01/13 Ketotifen Fumarate [Eye Itch Relief] 5 ml OP DAILY PRN 11/01/13 Fluticasone [Flonase] 2 spray INH DAILY PRN 09/05/14 Tiotropium [Spiriva] 1 puffs INH DAILY 09/05/14 Citalopram [CeleXA] 10 mg PO DAILY 08/24/15 Loratadine [Claritin] 10 mg PO DAILY 08/24/15 Simethicone [Gas Relief] 1 tab PO DAILY PRN 08/30/16 Allergies/Adverse Reactions: Allergies Allergy/AdvReac Type Severity Reaction Status Date / Time No Known Drug Allergies Allergy Verified 04/14/21 13:52 Anes History & Medical History - Anesthetic History Anesthesia Complications: reports: No previous complications - Medical History Cardiovascular: reports: High cholesterol Pulmonary: reports: COPD, Emphysema, Sleep apnea (does not use cpap) Gastrointestinal: reports: GERD Urinary: reports: None Neuro: reports: Other Musculoskeletal: reports: Other Endocrine/Autoimmune: reports: Type 2 diabetes Blood Disorders: reports: None Skin: reports: None Smoking Status: Current every day smoker Other Past Medical History: Trisomy 8 - Surgical History General: reports: EGD Eyes Ears Nose Throat (EENT): reports: Other Orthopedic: reports: Other Exam General: Alert, Oriented x3, Cooperative, No acute distress Dental: Other (edentulous) Mouth Openin Fingerbreadth Neck Mobility: Normal Mallampati classification: III Thyromental Distance: 4-6 cm Mental/Cognitive Status: Alert/Oriented X3, Normal for patient Plan Anesthesia Type: General, Total IV Consent for Procedure(s) Verified and Reviewed: Yes Code Status: Attempt Resuscitation ASA classification: 3-Severe systemic disease Is this case an emergency?: No
--- NOTE | 2022-06-25 08:38 | HISTORY & PHYSICAL EXAMINATION ---
Chief Complaint - Chief Complaint Chief Complaint: here for egd and colonoscopy History of Present Illness - History Obtained From Records Reviewed: yes History obtained from: pt Exam Limitations: none - History of Present Illness HPI Comment/Other: history gerd and barretts. no prior colon cancer screening History - Past Medical History Cardiovascular: reports: High cholesterol Respiratory: reports: COPD, Emphysema, Sleep apnea (does not use cpap) Neuro: reports: Other Endocrine/Autoimmune: reports: Type 2 diabetes GI: reports: GERD : reports: None HEENT: reports: Chronic vision loss, Chronic hearing loss, Other Psych: reports: Depression, Anxiety, Panic attacks, Other Musculoskeletal: reports: Other Derm: reports: None MRSA Hx?: No Other Past Medical History: Trisomy 8 - Past Surgical History General: reports: EGD Ortho: reports: Other HEENT: reports: Other - POLST Patient has POLST: No Meds/Allgy - Home Medications Home Medications: Ambulatory Orders Medication Instructions Recorded Confirmed Aripiprazole [Abilify] 15 mg PO DAILY 06/18/12 04/14/21 Cholecalciferol (Vitamin D3) 5,000 unit PO DAILY 06/18/12 04/14/21 [Vitamin D] Divalproex ER [Depakote ER] 500 mg PO BID 06/18/12 04/14/21 Multivitamin [Multivitamins] 1 each PO DAILY 06/18/12 04/14/21 Pantoprazole Sodium [Protonix] 40 mg PO BID 06/18/12 04/14/21 QUEtiapine [SEROquel] 300 mg PO QPM 06/18/12 04/14/21 Albuterol Sulfate [Albuterol 0.083 mg PO TID PRN 11/01/13 04/14/21 Sulfate Hfa] Albuterol Sulfate [Proair Hfa] 2 inhaler INH DAILY PRN 11/01/13 04/14/21 Atorvastatin [Lipitor] 10 mg PO QPM 11/01/13 04/14/21 Ketotifen Fumarate [Eye Itch 5 ml OP DAILY PRN 11/01/13 04/14/21 Relief] Fluticasone [Flonase] 2 spray INH DAILY PRN 09/05/14 04/14/21 Tiotropium [Spiriva] 1 puffs INH DAILY 09/05/14 04/14/21 Citalopram [CeleXA] 10 mg PO DAILY 08/24/15 04/14/21 Loratadine [Claritin] 10 mg PO DAILY 08/24/15 04/14/21 Simethicone [Gas Relief] 1 tab PO DAILY PRN 08/30/16 04/14/21 Naproxen 375 mg PO BID #20 tablet 01/18/18 04/14/21 Meloxicam [Mobic] 15 mg PO DAILY PRN #20 tablet 01/02/20 04/14/21 Sulfamethox/Trimeth 800/160 1 tablet PO BID 10 Days #20 tablet 08/28/21 [Bactrim Ds] - Allergies Allergies/Adverse Reactions: Allergies Allergy/AdvReac Type Severity Reaction Status Date / Time No Known Drug Allergies Allergy Verified 04/14/21 13:52 Review of Systems - Other Findings Other Findings: 10 pt ros as above otherwise unremarkable Exam - Vital Signs Reviewed Vital Signs: Yes Vital Signs: Vital Signs x48h Temp Pulse Resp BP Pulse Ox 06/25/22 07:09 35.8 C L 77 16 143/81 H 94 - Physical Exam General Appearance: positive: No acute distress, Alert Eyes Bilateral: positive: PERRL, EOMI ENT: positive: No signs of dehydration Neck: positive: No JVD, Trachea midline Respiratory: positive: No respiratory distress, Breath sounds nml Cardiovascular: positive: Regular rate & rhythm Abdomen: positive: No distention Neurologic/Psychiatric: positive: Oriented x3 Conclusion/Plan - Problem List (1) Colon cancer screening Conclusion/Plan: plan colonoscopy. plan egd for history barretts. parq held and consent obtained
[2022-06-25] MEDS ORDERED: PROPOFOL 500 MG/50 ML 500 MG/50 ML VIAL ONE (09:00)
--- NOTE | 2022-06-25 10:03 | ANESTHESIA POST OP EVALUATION ---
Anesthesia Post Eval - Post Anesthesia Eval Vitals: Last Vital Signs Temp 36.5 C 06/25/22 09:30 Pulse 81 06/25/22 09:30 Resp 16 06/25/22 09:30 BP 124/72 06/25/22 09:30 Pulse Ox 96 06/25/22 09:30 O2 Flow Rate CV Function Including HR & BP: Stable Pain Control: Satisfactory Nausea & Vomiting: Negative Mental Status: Baseline Respiratory Status: Airway Patent Hydration Status: Satisfactory Anesthesia Complications: None
[2022-06-25 10:33] VITALS: BP 129/82
== END 2022-06-25 06:47 | disposition home or self-care (01) ==
LOC: SDS 06:46
PROVIDERS: ATTEND Surgery
PROC: 0DB38ZX Excision of Lower Esophagus, Via Natural or Artificial Opening Endoscopic, Diagnostic (ICD-10-PCS; principal; 2022-06-25 08:45)
PROC: 0DB68ZX Excision of Stomach, Via Natural or Artificial Opening Endoscopic, Diagnostic (ICD-10-PCS; 2022-06-25 08:45)
DX: Z12.11 Encounter for screening for malignant neoplasm of colon (principal); K22.70 Barrett's esophagus without dysplasia; K21.9 Gastro-esophageal reflux disease without esophagitis; K29.70 Gastritis, unspecified, without bleeding; J43.9 Emphysema, unspecified; G47.30 Sleep apnea, unspecified; E11.9 Type 2 diabetes mellitus without complications
CPT/HCPCS: 43239; G0104; J7120

== ENCOUNTER 2023-01-29 18:58 | Emergency (ER) | payer MEDICARE, MEDICAID ==
--- NOTE | 2023-01-29 19:55 | XRAY Report ---
PROCEDURE: Chest 1V INDICATIONS: dyspnea TECHNIQUE: One view of the chest was acquired. COMPARISON: 06-29, 03/30/2022 FINDINGS: Surgical changes and devices: None. Lungs and pleura: No pleural effusions or pneumothorax. Lungs are clear. There is elevation of the left hemidiaphragm, as before. Mediastinum: Mediastinal contours appear normal. Heart size is normal. Bones and chest wall: No suspicious bony lesions. Age-appropriate degenerative changes are seen. O verlying soft tissues appear unremarkable. IMPRESSION: No acute cardiopulmonary process. Stable elevation of the left hemidiaphragm. Reviewed by: John Sarmiento MD on 01/29/2023 6:53 PM [facility] Approved by: John Sarmiento MD on 01/29/2023 6:53 PM [facility] Station ID: [id number]
--- NOTE | 2023-01-29 20:04 | ED Physician Documentation ---
PD HPI DYSPNEA - Stated complaint Stated Complaint: SOB, LOW BP - Chief complaint Chief Complaint: Resp - History obtained from History obtained from: Patient, EMS, Caregiver - History of Present Illness Timing - onset: No: How many years ago - Additional information Additional information: BIBA. Patient brought to ED from [facility]. Patient c/o dyspnea, chest pain since 5 PM today. He does not recall any specific inciting even, and he tells me the chest pain has resolved and that he now only has mild shortness of breath. Information from [facility] includes that patient had room-air pulse ox [employer] of 83% and blood pressure 102/62. Patient's PMHx includes possible COPD although he does not use supplemental oxygen. By the time of this HPI/ROS, he says he feels much improved. Review of Systems Constitutional: denies: Fever, Chills, Sweats Cardiac: reports: Chest pain / pressure. denies: Palpitations, Pedal edema, Calf pain Respiratory: reports: Dyspnea. denies: Cough, Hemoptysis, Wheezing GI: reports: Reviewed and negative PD PAST MEDICAL HISTORY - Past Medical History Cardiovascular: High cholesterol Respiratory: COPD, Emphysema, Sleep apnea Neuro: Other Endocrine/Autoimmune: Type 2 diabetes GI: GERD : None HEENT: Chronic vision loss, Chronic hearing loss, Other Psych: Depression, Anxiety, Panic attacks, Other Musculoskeletal: Other Derm: None - Past Surgical History Past Surgical History: Yes General: EGD Ortho: Other HEENT: Other - Present Medications Home Medications: Ambulatory Orders Medication Instructions Recorded Confirmed Aripiprazole [Abilify] 20 mg PO HS 06/18/12 01/29/23 Cholecalciferol (Vitamin D3) 5,000 unit PO DAILY 06/18/12 01/29/23 [Vitamin D] Divalproex ER [Depakote ER] 500 mg PO BID 06/18/12 01/29/23 Multivitamin [Multivitamins] 1 each PO DAILY 06/18/12 01/29/23 Pantoprazole Sodium [Protonix] 40 mg PO BID 06/18/12 01/29/23 QUEtiapine [SEROquel] 300 mg PO QPM 06/18/12 01/29/23 Albuterol Sulfate [Proair Hfa] 2 inhaler INH DAILY PRN 11/01/13 01/29/23 Atorvastatin [Lipitor] 10 mg PO QPM 11/01/13 01/29/23 Ketotifen Fumarate [Eye Itch 5 ml OP DAILY PRN 11/01/13 01/29/23 Relief] Tiotropium [Spiriva] 1 puffs INH DAILY 09/05/14 01/29/23 Citalopram [CeleXA] 30 mg PO DAILY 08/24/15 01/29/23 metFORMIN [Glucophage] 500 mg PO BIDWM 01/29/23 01/29/23 predniSONE [Deltasone] 40 mg PO DAILY 4 Days #8 tablet 01/29/23 - Allergies Allergies/Adverse Reactions: Allergies Allergy/AdvReac Type Severity Reaction Status Date / Time No Known Drug Allergies Allergy Verified 04/14/21 13:52 - Social History Does the pt smoke?: Yes Smoking Status: Current every day smoker Does the pt drink ETOH?: Yes Does the pt have substance abuse?: No - Immunizations Immunizations are current?: Yes - POLST Patient has POLST: No PD ED PE NORMAL - Vitals Vital signs reviewed: Yes - General General: Alert and oriented X 3, No acute distress, Well developed/nourished - HEENT HEENT: Moist mucous membranes - Neck Neck: Supple, no meningeal sign - Cardiac Cardiac: RRR, No murmur, No gallop, No rub - Respiratory Respiratory: No respiratory distress - Abdomen Abdomen: Soft, Non tender - Derm Derm: Normal color, Warm and dry - Extremities Extremities: No edema Results - Vitals Vitals: Oxygen O2 Source [] Nasal cannula O2 Source Room air - EKG (time done) No standard instances EKG releavant findings:: EKG personally interpreted by author of this note. Relevant findings are: Rate: Rate (enter#) (92) Rhythm: NSR Niland: Normal Intervals: Normal [place] QRS: Normal Ischemia: Normal ST segments - Labs Labs: Laboratory Tests 01/29/23 01/29/23 01/29/23 20:05 20:05 20:11 WBC 8.5 RBC 4.90 Hgb 13.8 L Hct 44.3 MCV 90.4 MCH 28.2 MCHC 31.2 L RDW 15.3 H Plt Count 266 MPV 9.5 Neut # (Auto) 4.3 Lymph # (Auto) 2.5 Greer # (Auto) 1.3 H Eos # (Auto) 0.2 Baso # (Auto) 0.1 Absolute Nucleated RBC 0.00 Nucleated RBC % 0.0 Sodium Potassium Chloride Carbon Dioxide Anion Gap BUN Creatinine Estimated GFR (MDRD) Glucose Calcium Total Bilirubin AST ALT Alkaline Phosphatase Troponin I High Sens 4.4 Total Protein Albumin Globulin Albumin/Globulin Ratio Lipase Nasal Adenovirus (PCR) NOT DETECTED Nasal B. parapertussis DNA (PCR) NOT DETECTED Nasal Coronavir 229E PCR NOT DETECTED Nasal Coronavir HKU1 PCR NOT DETECTED Nasal Coronavir NL63 PCR NOT DETECTED Nasal Coronavir OC43 PCR NOT DETECTED Nasal Enterovir/Rhinovir PCR NOT DETECTED Nasal Influenza B PCR NOT DETECTED Nasal Influenza A PCR NOT DETECTED Nasal Parainfluen 1 PCR NOT DETECTED Nasal Parainfluen 2 PCR NOT DETECTED Nasal Parainfluen 3 PCR NOT DETECTED Nasal Parainfluen 4 PCR NOT DETECTED Nasal RSV (PCR) NOT DETECTED Nasal B.pertussis DNA PCR NOT DETECTED Nasal C.pneumoniae (PCR) NOT DETECTED Mundo Human Metapneumo PCR NOT DETECTED Nasal M.pneumoniae (PCR) NOT DETECTED Nasal SARS-CoV-2 (PCR) NOT DETECTED 01/29/23 20:31 WBC RBC Hgb Hct MCV MCH MCHC RDW Plt Count MPV Neut # (Auto) Lymph # (Auto) Greer # (Auto) Eos # (Auto) Baso # (Auto) Absolute Nucleated RBC Nucleated RBC % Sodium 139 Potassium 4.2 Chloride 98 L Carbon Dioxide 35 H Anion Gap 6.0 BUN 14 Creatinine 0.7 Estimated GFR (MDRD) 114 Glucose 126 H Calcium 9.3 Total Bilirubin 0.2 AST 12 ALT 15 Alkaline Phosphatase 79 Troponin I High Sens Total Protein 6.2 L Albumin 4.0 Globulin 2.2 Albumin/Globulin Ratio 1.8 Lipase 39 Nasal Adenovirus (PCR) Nasal B. parapertussis DNA (PCR) Nasal Coronavir 229E PCR Nasal Coronavir HKU1 PCR Nasal Coronavir NL63 PCR Nasal Coronavir OC43 PCR Nasal Enterovir/Rhinovir PCR Nasal Influenza B PCR Nasal Influenza A PCR Nasal Parainfluen 1 PCR Nasal Parainfluen 2 PCR Nasal Parainfluen 3 PCR Nasal Parainfluen 4 PCR Nasal RSV (PCR) Nasal B.pertussis DNA PCR Nasal C.pneumoniae (PCR) Mundo Human Metapneumo PCR Nasal M.pneumoniae (PCR) Nasal SARS-CoV-2 (PCR) - Rads (name of study) CTA chest Relevant Findings:: Prelim report reviewed, See rad report cxr Relevant Findings:: Prelim report reviewed, See rad report PD Medical Decision Making - ED course Complexity details: reviewed results, re-evaluated patient, considered differential, d/w patient ED course: Normotensive throughout ED stay. No concerning nor diagnostic findings on CBC, ER abdominal panel. normal hs-cTn (4.4). CTA chest shows no evidence of PE, with incidental finding of 5mm left upper lobe pulmonary nodule as well as mild findings s/o bronchitis. Maintained pulse ox of 90-93% on room air throughout ED stay, and he did not exhibit any overt difficulty breathing nor c/o dyspnea throughout ED stay. No concerning nor diagnostic findings on tonight's tests including EKG, CXR, CTA chest, blood tests. Respiratory PCR panel negative for viruses on this panel. CT chest negative for PE; findings mildly s/o bronchitis. Given 125mg solu-medrol IV and duoneb. Etiology of patient's symptoms unclear at this time. Differential includes, but not necessarily limited to, COPD exacerbation, URI with bronchospasm Departure - Departure Disposition: 01 Home, Self Care Clinical Impression: Bronchitis, Hypoxic Condition: Good Instructions: ED Upper Resp Infec No Abx Tx Prescriptions: predniSONE [Deltasone] 40 mg PO DAILY 4 Days #8 tablet Comments: There were no concerning findings on tonight's blood tests. The nasal swab was negative for a number of different viruses that we can test for on this panel, including influenza and COVID. A CAT scan of the chest was undertaken, and this does not have any concerning or diagnostic findings. There is a small left lung nodule which is an incidental finding; this can be reassessed by your primary care provider within the next several weeks. There was no evidence of any blood clots on the CT scan. There were findings on the CT scan to suggest possible bronchitis; bronchitis generally does not benefit from antibiotics. You were given a DuoNeb in the emergency department (nebulized treatment of albuterol and Atrovent) as well as 125 mg of Solu-Medrol through your IV (enzo roid which can help open the airways, improve breathing and increased oxygen level). I am also providing a prescription for 4 days of prednisone (steroid) Forms: PCP List Discharge Date/Time: 01/30/23 00:25
[2023-01-29 20:09] LABS: BASOPHILS # (AUTO) 0.1 10^3/uL (0.0-0.1); BASOPHILS % (AUTO) 0.6 %; EOSINOPHILS # (AUTO) 0.2 10^3/uL (0.0-0.7); EOSINOPHILS % (AUTO) 2.1 %; HCT - HEMATOCRIT 44.3 % (42.0-52.0); HGB - HEMOGLOBIN 13.8 g/dL (14.0-18.0); LYMPHOCYTES # (AUTO) 2.5 10^3/uL (1.5-3.5); LYMPHOCYTES % (AUTO) 29.3 %; MEAN CORPUSCULAR HEMOGLOBIN 28.2 pg (27.0-31.0); MEAN CORPUSCULAR HGB CONC 31.2 g/dL (32.0-36.0); MEAN CORPUSCULAR VOLUME 90.4 fL (80.0-94.0); MEAN PLATELET VOLUME 9.5 fL (7.4-11.4); MONOCYTES # (AUTO) 1.3 10^3/uL (0.0-1.0); MONOCYTES % (AUTO) 15.3 %; NEUTROPHILS # (AUTO) 4.3 10^3/uL (1.5-6.6); NEUTROPHILS % (AUTO) 51.2 %; PLT - PLATELET COUNT 266 10^3/uL (130-450); RED CELL DISTRIBUTION WIDTH 15.3 % (12.0-15.0); WHITE BLOOD COUNT 8.5 x10^3/uL (4.8-10.8)
[2023-01-29] MEDS ORDERED: IPRATROPIUM/ALBUTEROL 3 ML NEB INH STA (20:48)
[2023-01-29] MEDS ORDERED: methylPREDNISolone SUCCINATE 125 MG/2 ML VIAL IVP STA (20:48)
[2023-01-29 20:54] LABS: ALBUMIN/GLOBULIN RATIO 1.8 (1.0-2.2); BILIRUBIN,TOTAL 0.2 mg/dL (0.2-1.0); CALCIUM 9.3 mg/dL (8.5-10.3); CREATININE 0.7 mg/dL (0.6-1.3); POTASSIUM 4.2 mmol/L (3.5-4.5); TOTAL PROTEIN 6.2 g/dL (6.4-8.9)
[2023-01-29 21:10] LABS: B. PARAPERTUSSIS- RESP PCR PAN NOT DETECTED; B. PERTUSSIS- RESP PCR PANEL NOT DETECTED; C. PNEUMONIAE- RESP PCR PANEL NOT DETECTED; CORONAVIRUS 229E-RESP PCR NOT DETECTED; CORONAVIRUS HKU1-RESP PCR NOT DETECTED; CORONAVIRUS NL63-RESP PCR NOT DETECTED; CORONAVIRUS OC43-RESP PCR NOT DETECTED; HUMAN METAPNEUMOVIRUS NOT DETECTED; INFLUENZA A- RESP PCR PANEL NOT DETECTED; INFLUENZA B - RESP PCR PANEL NOT DETECTED; M. PNEUMONIAE- RESP PCR PANEL NOT DETECTED; PARAINFLUENZA VIRUS 1 NOT DETECTED; PARAINFLUENZA VIRUS 2 NOT DETECTED; PARAINFLUENZA VIRUS 3 NOT DETECTED; PARAINFLUENZA VIRUS 4 NOT DETECTED; RHINOVIRUS/ENTEROVIRUS NOT DETECTED; RSV- RESP PCR PANEL NOT DETECTED; SARS-CoV-2 -RESP PCR PANEL NOT DETECTED
[2023-01-29] MEDS ORDERED: iohexoL-300 100 ML VIAL IVP ONE (21:58)
--- NOTE | 2023-01-29 22:22 | CT Report ---
PROCEDURE: ANGIO CHEST W/WO INDICATIONS: dyspnea, chest pain, hypoxia CONTRAST: 100 ML OMNI 300 TECHNIQUE: After the administration of intravenous contrast, 2 mm axial images were acquired from the pulmonary apices to the posterior costophrenic angles during the arterial phase. In addition, 1 mm lung kernel and 5 mm soft tissue kernel reconstructions were performed. 3-dimensional coronal oblique maximum int ensity projection (MIP) reformats, 8 mm axial MIP, and 5 mm coronal and sagittal MPR reformats were t hen performed through the thorax. For radiation dose reduction, the following was used: automated exp osure control, adjustment of mA and/or kV according to patient size. COMPARISON: Chest radiograph from earlier same day. FINDINGS: Image quality: Diagnostic. Large vessels: No filling defects within the opacified pulmonary arteries, accounting for motion and contrast timing. No evidence of acute aortic syndrome or aortic aneurysm. Lungs and pleura: No focal consolidation. No pleural effusions. No pneumothorax. Millimeter left upper lobe pulmonary nodule (88/series 4). No other suspicious pulmonary nodules whic h require follow up. Minimal perihilar airway thickening. Mild streaky bibasilar atelectasis. Mediastinum: Heart size is normal. No pericardial effusion. No large vessel abnormality. No mediastin al adenopathy by size criteria. Chest wall and lower neck: Thyroid is unremarkable. No axillary or supraclavicular adenopathy by size . Bones: No aggressive osseous abnormality. Upper Abdomen: Unremarkable. IMPRESSION: No pulmonary embolus. Mild streaky bibasilar atelectasis. More pronounced on the left likely related to chronic eventration of the left hemidiaphragm. Minimal perihilar airway thickening. Findings are nonspecific but may represent an infectious or infl ammatory bronchitis. 5 mm left upper lobe pulmonary nodule. Consider follow-up chest CT in 12 months. Reviewed by: Kervin Alvarez MD on 01/29/2023 10:20 PM PST Approved by: Kervin Alvarez MD on 01/29/2023 10:20 PM PST Station ID: [id number]
[2023-01-30 00:25] VITALS: BP 144/82; O2SAT 91
== END 2023-01-30 00:25 | disposition home or self-care (01) ==
LOC: ED 18:58
DX: J44.9 Chronic obstructive pulmonary disease, unspecified (principal); J43.9 Emphysema, unspecified; J40 Bronchitis, not specified as acute or chronic; R09.02 Hypoxemia; E11.9 Type 2 diabetes mellitus without complications; Z79.84 Long term (current) use of oral hypoglycemic drugs; F17.200 Nicotine dependence, unspecified, uncomplicated; Z11.52 Encounter for screening for COVID-19
CPT/HCPCS: 36415; 71045; 71275; 80053; 83690; 84484; 85025; 87633; 93005; 94640; 96374; 99284; Q9967

== ENCOUNTER 2023-03-10 04:28 | Inpatient (IN) | payer MEDICARE, MEDICAID ==
[2023-03-10] MEDS: TETANUS/DIPHTHERIA/PERTUSSIS 0.5 ML SYRINGE IM ONE (05:07)
[2023-03-10] MEDS: SODIUM CHLORIDE 0.9% 1,000 ML IV STA (05:07)
[2023-03-10 05:13] LABS: BASOPHILS % (AUTO) 0.6 %; EOSINOPHILS % (AUTO) 0.6 %; HCT - HEMATOCRIT 45.8 % (42.0-52.0); HGB - HEMOGLOBIN 14.6 g/dL (14.0-18.0); LYMPHOCYTES % (AUTO) 19.5 %; MEAN CORPUSCULAR HEMOGLOBIN 28.8 pg (27.0-31.0); MEAN CORPUSCULAR HGB CONC 31.9 g/dL (32.0-36.0); MEAN CORPUSCULAR VOLUME 90.3 fL (80.0-94.0); MEAN PLATELET VOLUME 10.1 fL (7.4-11.4); MONOCYTES # (AUTO) 1.1 10^3/uL (0.0-1.0); MONOCYTES % (AUTO) 20.7 %; NEUTROPHILS % (AUTO) 57.2 %; PLT - PLATELET COUNT 187 10^3/uL (130-450); RED BLOOD COUNT 5.07 10^6/uL (4.70-6.10); RED CELL DISTRIBUTION WIDTH 16.1 % (12.0-15.0); WHITE BLOOD COUNT 5.2 x10^3/uL (4.8-10.8)
--- NOTE | 2023-03-10 05:14 | ED Physician Documentation ---
History of Present Illness - Stated complaint Stated Complaint: SYNCOPE/L RIB PX - Chief complaint Chief Complaint: Neuro - History obtained from History obtained from: Patient - Additonal information Additional information: Patient is a 62-year-old male from [facility] presenting for evaluation of a syncopal event that occurred in the bathroom. Patient is unsure of what occurred but does appear to have struck his head. Staff noted that he had fallen around 3:00 this morning. He was able to be assisted up but reported pain to the left side of his chest. He does not take a blood thinner. He was recently diagnosed with COVID and started on Paxlovid yesterday.Patient states he has had symptoms for the past 2 days with cough and congestion. He does not believe he has had a fever.No vomiting or diarrhea. Review of Systems Constitutional: denies: Fever Nose: reports: Congestion Cardiac: reports: Chest pain / pressure Respiratory: reports: Cough. denies: Dyspnea GI: denies: Vomiting Neurologic: reports: Syncope PD PAST MEDICAL HISTORY - Past Medical History Cardiovascular: High cholesterol Respiratory: COPD, Emphysema, Sleep apnea Neuro: Other Endocrine/Autoimmune: Type 2 diabetes GI: GERD : None HEENT: Chronic vision loss, Chronic hearing loss, Other Psych: Depression, Anxiety, Panic attacks, Other Musculoskeletal: Other Derm: None - Past Surgical History Past Surgical History: Yes General: EGD Ortho: Other HEENT: Other - Present Medications Home Medications: Ambulatory Orders Medication Instructions Recorded Confirmed Aripiprazole [Abilify] 20 mg PO HS 06/18/12 01/29/23 Cholecalciferol (Vitamin D3) 5,000 unit PO DAILY 06/18/12 01/29/23 [Vitamin D] Divalproex ER [Depakote ER] 500 mg PO BID 06/18/12 01/29/23 Multivitamin [Multivitamins] 1 each PO DAILY 06/18/12 01/29/23 Pantoprazole Sodium [Protonix] 40 mg PO BID 06/18/12 01/29/23 QUEtiapine [SEROquel] 300 mg PO QPM 06/18/12 01/29/23 Albuterol Sulfate [Proair Hfa] 2 inhaler INH DAILY PRN 11/01/13 01/29/23 Atorvastatin [Lipitor] 10 mg PO QPM 11/01/13 01/29/23 Ketotifen Fumarate [Eye Itch 5 ml OP DAILY PRN 11/01/13 01/29/23 Relief] Tiotropium [Spiriva] 1 puffs INH DAILY 09/05/14 01/29/23 Citalopram [CeleXA] 30 mg PO DAILY 08/24/15 01/29/23 metFORMIN [Glucophage] 500 mg PO BIDWM 01/29/23 01/29/23 predniSONE [Deltasone] 40 mg PO DAILY 4 Days #8 tablet 01/29/23 - Allergies Allergies/Adverse Reactions: Allergies Allergy/AdvReac Type Severity Reaction Status Date / Time No Known Drug Allergies Allergy Verified 03/10/23 04:36 - Social History Does the pt smoke?: Yes Smoking Status: Current every day smoker Does the pt drink ETOH?: Yes Does the pt have substance abuse?: No - Immunizations Immunizations are current?: Yes - POLST Patient has POLST: No PD ED PE NORMAL - General General: Alert and oriented X 3, No acute distress, Well developed/nourished - HEENT HEENT: PERRL, EOMI, Moist mucous membranes, Pharynx benign, Other (Small laceration noted to forehead covered with Steri-Strips (placed by staff at [facility])) - Neck Neck: Supple, no meningeal sign, No bony TTP - Cardiac Cardiac: RRR, Strong equal pulses, Other (Left-sided chest wall tenderness) - Respiratory Respiratory: No respiratory distress, Clear bilaterally - Abdomen Abdomen: Soft, Non tender, Non distended - Derm Derm: Warm and dry - Extremities Extremities: No deformity, Normal ROM s pain - Neuro Neuro: Alert and oriented X 3, No motor deficit, No sensory deficit, Normal speech Eye Opening: Spontaneous Motor: Obeys Commands Verbal: Oriented GCS Score: 15 PD ED PE EXPANDED - Eyes Eyes: Visual acuity - see nn, Normal eyelids, Injected conj/sclera (L eye), Exudate (L eye), Subconj hemorrhage (R eye medially; ), Normal corneas, Anterior chambers clear. No: Corneal abrasion, Corneal ulcer, Fluorescein uptake, Hyphema Results - Vitals Vitals: Vital Signs - 24 hr 03/10/23 03/10/23 03/10/23 04:36 04:37 05:30 Temperature 37 C Heart Rate 84 Respiratory 18 16 Rate Blood Pressure 132/78 H 137/90 H O2 Saturation 88 L 94 96 If not protocol 2 2 : Oxygen Flow, liters/minute 03/10/23 03/10/23 03/10/23 05:45 06:00 06:03 Temperature Heart Rate 85 85 Respiratory 16 13 Rate Blood Pressure 161/96 H 144/81 H O2 Saturation 96 85 L 96 If not protocol 2 2 : Oxygen Flow, liters/minute 03/10/23 06:58 Temperature Heart Rate 79 Respiratory 20 Rate Blood Pressure 162/96 H O2 Saturation 96 If not protocol 3 : Oxygen Flow, liters/minute Oxygen O2 Source [] Nasal cannula O2 Source Nasal cannula - EKG (time done) 0443 EKG releavant findings:: EKG personally interpreted by author of this note. Relevant findings are: Rate 86, normal sinus rhythm, no STEMI, QTc 464 - Labs Labs: Laboratory Tests 03/10/23 03/10/23 03/10/23 05:01 05:01 06:00 WBC 5.2 RBC 5.07 Hgb 14.6 Hct 45.8 MCV 90.3 MCH 28.8 MCHC 31.9 L RDW 16.1 H Plt Count 187 MPV 10.1 Neut # (Auto) 3.0 Lymph # (Auto) 1.0 L Hall # (Auto) 1.1 H Eos # (Auto) 0.0 Baso # (Auto) 0.0 Absolute Nucleated RBC 0.00 Nucleated RBC % 0.0 Sodium 140 Potassium 4.1 Chloride 98 L Carbon Dioxide 34 H Anion Gap 8.0 BUN 19 Creatinine 0.8 Estimated GFR (MDRD) 97 Glucose 102 Calcium 8.3 L Total Bilirubin 0.3 AST 17 ALT 13 Alkaline Phosphatase 54 Troponin I High Sens 9.6 Total Protein 5.8 L Albumin 3.5 Globulin 2.3 Albumin/Globulin Ratio 1.5 Lipase 11 Procedures - Laceration (location) Forehead Length in cm: 1 Wound type: Linear Wound preparation: Hibiclens, Irrigated copiously NS Skin layer closure: Dermabond Other: Patient tolerated well, No complications, Tetanus booster given PD Medical Decision Making - ED course Complexity details: reviewed results, re-evaluated patient, d/w patient ED course: Patient is a 62-year-old male with a history of COPD presenting for evaluation of syncope. He was recently diagnosed with COVID and is on Paxlovid. He does have a small laceration to his forehead and reports pain to the left chest. No focal deficits noted on neuroexam. He is not on blood thinners. CT head, C- spine, chest were obtained and reviewed and without significant findings. He does have a subconjunctival hemorrhage to the right eye and has findings of conjunctivitis on the left eye. No signs of corneal abrasion or ulcer. No signs of globe rupture. EKG is reviewed and a sinus rhythm. CBC, chemistry and troponin were obtained and reviewed and without significant findings. Patient however has been hypoxic here on room air to 85%. He is not normally on oxygen. As he is requiring oxygen and in the setting of COVID infection will admit for further management. 0707 - D/W admitting hospitalist. Departure - Departure Disposition: 64 [facility] DC/Xfer Clinical Impression: Acute respiratory failure with hypoxia, COVID-19, Syncope, Forehead laceration, Conjunctivitis, left eye, Subconjunctival hemorrhage Condition: Good Forms: PCP List
[2023-03-10 06:27] LABS: ALBUMIN 3.5 g/dL (3.2-5.5); ALBUMIN/GLOBULIN RATIO 1.5 (1.0-2.2); BILIRUBIN,TOTAL 0.3 mg/dL (0.2-1.0); CALCIUM 8.3 mg/dL (8.5-10.3); CREATININE 0.8 mg/dL (0.6-1.3); POTASSIUM 4.1 mmol/L (3.5-4.5); TOTAL PROTEIN 5.8 g/dL (6.4-8.9)
[2023-03-10] MEDS: POLYMYXIN B/TRIMETH OPHTH DROPS LEFTEYE STA (06:39)
[2023-03-10] MEDS: LIDOCAINE PATCH 4% TOP STA (06:40)
[2023-03-10] MEDS ORDERED: SODIUM CHLORIDE FLUSH 0.9% 10 ML SYRINGE IVP PRN (07:29)
--- NOTE | 2023-03-10 07:49 | HISTORY & PHYSICAL EXAMINATION ---
Chief Complaint - Chief Complaint Chief Complaint: Syncope History of Present Illness - Admitted From Admitted From:: [facility] Emergency Room - History Obtained From Records Reviewed: Yes History obtained from: Patient and I spoke with Dr. Gage Jordan - History of Present Illness HPI Comment/Other: Vidal Damon Is a 62-year-old man who was brought from [facility] for evaluation of a syncopal event that occurred in the patient's bathroom. 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 He had some head trauma secondary to his fall. He was recently diagnosed with COVID. He underwent a CT scan of the chest, cervical spine CT, head CT in the emergency room.CT scan of the chest revealed no rib fractures. It did reveal a persistently elevated left hemidiaphragm.CT of the spine revealed no fracture or traumatic subluxation. CT scan of the head revealed no acute intracranial pathology. He reports no history of seizure. History - Past Medical History Cardiovascular: reports: High cholesterol Respiratory: reports: COPD, Emphysema, Sleep apnea Neuro: reports: Other Endocrine/Autoimmune: reports: Type 2 diabetes GI: reports: GERD : reports: None HEENT: reports: Chronic vision loss, Chronic hearing loss, Other Psych: reports: Depression, Anxiety, Panic attacks, Other Musculoskeletal: reports: Other Derm: reports: None MRSA Hx?: No - Past Surgical History General: reports: EGD Ortho: reports: Other HEENT: reports: Other - POLST Patient has POLST: No Meds/Allgy - Home Medications Home Medications: Ambulatory Orders Medication Instructions Recorded Confirmed Aripiprazole [Abilify] 20 mg PO HS 06/18/12 03/10/23 Cholecalciferol (Vitamin D3) 5,000 unit PO DAILY 06/18/12 03/10/23 [Vitamin D] Multivitamin [Multivitamins] 1 each PO DAILY 06/18/12 03/10/23 Pantoprazole Sodium [Protonix] 40 mg PO BID 06/18/12 03/10/23 QUEtiapine [SEROquel] 600 mg PO QPM 06/18/12 03/10/23 Albuterol Sulfate [Proair Hfa] 2 inhaler INH DAILY PRN 11/01/13 03/10/23 Atorvastatin [Lipitor] 10 mg PO QPM 11/01/13 03/10/23 Tiotropium [Spiriva] 1 puffs INH DAILY 09/05/14 03/10/23 Citalopram [CeleXA] 30 mg PO DAILY 08/24/15 03/10/23 metFORMIN [Glucophage] 500 mg PO BIDWM 01/29/23 03/10/23 Carboxymethylcellulose Sodium 1 drops EACHEYE TID PRN 03/10/23 03/10/23 [Refresh Tears] Divalproex Sodium [Depakote] 500 mg PO BID 03/10/23 03/10/23 Nirmatrelvir/Ritonavir [Paxlovid 1 each PO BID 03/10/23 03/10/23 300-100 mg Dose Pack] - Allergies Allergies/Adverse Reactions: Allergies Allergy/AdvReac Type Severity Reaction Status Date / Time No Known Drug Allergies Allergy Verified 03/10/23 04:36 Exam - Vital Signs Vital Signs: Vital Signs x48h Temp Pulse Resp BP Pulse Ox O2 Flow Rate 03/10/23 07:30 77 16 136/90 H 94 3 03/10/23 07:28 88 L 03/10/23 07:00 78 16 150/90 H 97 3 03/10/23 06:58 79 20 162/96 H 96 3 03/10/23 06:03 96 2 03/10/23 06:00 85 13 144/81 H 85 L 03/10/23 05:45 85 16 161/96 H 96 2 03/10/23 05:30 16 137/90 H 96 2 03/10/23 04:37 94 2 03/10/23 04:36 37 C 84 18 132/78 H 88 L - Physical Exam General Appearance: positive: Mild distress, Other (Positive laceration on his forehead.) Eyes Bilateral: positive: Other Neck: positive: Thyroid nml, No JVD, Trachea midline Respiratory: positive: Other (Fair air exchange in all lung pulido. Positive expiratory wheezing) Cardiovascular: positive: Regular rate & rhythm, No murmur, No gallop Abdomen: positive: Non-tender, No organomegaly, Nml bowel sounds, No distention Skin: positive: No rash Extremities: positive: No pedal edema Conclusion/Plan - Problem List (1) Syncope Conclusion/Plan: Etiology of syncope is not clear. Plan is for admission and for patient to be placed on telemetry. An echocardiogram has been ordered. EKG performed in the emergency room did not reveal any specific abnormality or rhythm change Hypoxia Comments/Plan: Hypoxia most likely related to underlying COVID infection. Plan is to continue Paxlovid medications that interact with Paxlovid will be withheld until he has completed his 5-day course. Depression/Anxiety Plan: Continue valproic acid and - Lab Results Fish Bones: 03/10/23 05:01 03/10/23 06:00
--- NOTE | 2023-03-10 08:11 | CT Report ---
PROCEDURE: Head WO INDICATIONS: head injury/LOC TECHNIQUE: Noncontrast 4.5 mm thick angled axial sections acquired from the foramen magnum to the vertex. For r adiation dose reduction, the following was used: automated exposure control, adjustment of mA and/or kV according to patient size. COMPARISON: CT head 09/05/2014. FINDINGS: Image quality: Excellent. CSF spaces: Basal cisterns are patent. No extra-axial fluid collections. Ventricles are normal in size and shape. Brain: No midline shift. No intracranial masses or hemorrhage. Age-related global volume loss and chronic microvascular ischemic changes. Intracranial atherosclerotic vascular calcifications. Goncalves-w sana matter interface is normal. Skull and face: Calvarium and visualized facial bones are intact, without suspicious lesions. Sinuses: Right greater than left mastoid effusions. Diffuse paranasal sinus disease, worse within the left maxillary sinus and bilateral ethmoid air cells.. IMPRESSION: 1.No acute intracranial pathology. 2.Age-related global volume loss and chronic microvascular ischemic changes. 3.Bilateral mastoid effusions and sinusitis, as above. Findings are concordant with preliminary interpretation provided by [facility]. Reviewed by: Dangelo Urbano MD on 03/10/2023 8:10 AM PST Approved by: Dangelo Urbano MD on 03/10/2023 8:10 AM PST Station ID: [id number]
--- NOTE | 2023-03-10 08:14 | CT Report ---
PROCEDURE: Cervical Spine WO INDICATIONS: head injury TECHNIQUE: Noncontrast 3 mm thick sections acquired from the skull base to the T4 level. Sagittal and coronal r eformats were then constructed. For radiation dose reduction, the following was used: automated exp osure control, adjustment of mA and/or kV according to patient size. COMPARISON: None. FINDINGS: Image quality: Excellent. Bones: No fractures or dislocations. Multilevel degenerative changes of the cervical spine with fac et and uncovertebral arthropathy, disc height loss, endplate degenerative changes and spurring. Visu alized superior ribs are intact. Soft tissues: Prevertebral soft tissues are normal in thickness. No paravertebral hematomas. No ap ical pneumothoraces. IMPRESSION: No acute, displaced fracture or traumatic subluxation. Findings are concordant with preliminary interpretation provided by [facility]. Reviewed by: Dangelo Urbano MD on 03/10/2023 8:13 AM PST Approved by: Dangelo Urbano MD on 03/10/2023 8:13 AM PST Station ID: [id number]
--- NOTE | 2023-03-10 09:04 | CT Report ---
PROCEDURE: Chest WO INDICATIONS: L sided rib pain after fall TECHNIQUE: A CT scan of the chest was performed. Intravenous contrast media was not administered. Images were re corded and evaluated at appropriate window settings. Reformats: axial MIP of the chest, coronal and s agittal. For radiation dose reduction, the following was used: automated exposure control, adjustment of mA and/or kV according to patient size. COMPARISON: CT of the chest dated 01/29/2023. FINDINGS: Image quality: Diagnostic. Chest wall and lower neck: No thyroid nodule which requires sonographic follow up. No axillary or sup raclavicular adenopathy by size. Lungs and pleura: There is marked elevation of the left hemidiaphragm with atelectasis at the left linn ng base. These findings are similar to the comparison CT dated 01/29/2023. No pleural effusions. No pneumothorax. No suspicious pulmonary nodules which require follow up. The pulmonary nodule visualiz ed at the left apex on the prior study is not seen on the current study. Mediastinum: Heart size is normal. No pericardial effusion. No large vessel abnormality. No mediastin al adenopathy by size criteria. Bones: No aggressive osseous abnormality. Upper Abdomen: Unremarkable. IMPRESSION: 1. No displaced rib fractures visualized. 2. Persistent elevation of left hemidiaphragm and basilar atelectasis. Reviewed by: Shama Zhou MD on 03/10/2023 9:02 AM PST Approved by: Shama Zhou MD on 03/10/2023 9:02 AM PST Station ID: [id number]
--- NOTE | 2023-03-10 10:33 | PHARMACY PROGRESS NOTE ---
- Best Possible Medication History Admit Date and Time: 03/10/23 0729 Processed by: Nursing Secondary Source(s): Facility MAR as ONLY source As the person ultimately responsible for medication therapy, providers are able to order a medication from an existing home medication list in [facility] via the "Reconcile Routine" prior to Confirmation of that medication by technical support manager. Such practice is discouraged except when the physician, in their clinical judgment, deems that a medical need exists for a medication without regard to previous use.
[2023-03-10] MEDS: HEPARIN 5,000 UNIT/ML VIAL SUBQ SCH (10:59)
[2023-03-10] MEDS: SODIUM CHLORIDE FLUSH 0.9% 10 ML SYRINGE IVP SCH (10:59)
[2023-03-10] MEDS: predniSONE 20 MG TABLET PO SCH (10:59)
[2023-03-10] MEDS: IPRATROPIUM/ALBUTEROL 3 ML NEB INH SCH (12:29)
[2023-03-10] MEDS: BENZOCAINE/MENTHOL LOZENGE MM PRN (19:40)
[2023-03-10] MEDS ORDERED: ALBUTEROL 6.7 GM INHALER INH PRN (21:09)
[2023-03-10] MEDS: NIRMATRELVIR/RITONAVIR PREPACK PO STA (21:42)
[2023-03-10] MEDS: PANTOPRAZOLE 40 MG TABLET PO SCH (21:42)
[2023-03-10] MEDS: ARIPiprazole 5 MG TABLET PO SCH (21:42)
[2023-03-11 05:36] LABS: BASOPHILS % (AUTO) 0.3 %; EOSINOPHILS # (AUTO) 0.1 10^3/uL (0.0-0.7); EOSINOPHILS % (AUTO) 2.2 %; HCT - HEMATOCRIT 43.5 % (42.0-52.0); HGB - HEMOGLOBIN 13.6 g/dL (14.0-18.0); LYMPHOCYTES # (AUTO) 1.2 10^3/uL (1.5-3.5); LYMPHOCYTES % (AUTO) 21.3 %; MEAN CORPUSCULAR HEMOGLOBIN 28.6 pg (27.0-31.0); MEAN CORPUSCULAR HGB CONC 31.3 g/dL (32.0-36.0); MEAN CORPUSCULAR VOLUME 91.4 fL (80.0-94.0); MEAN PLATELET VOLUME 9.7 fL (7.4-11.4); MONOCYTES % (AUTO) 17.5 %; NEUTROPHILS # (AUTO) 3.4 10^3/uL (1.5-6.6); NEUTROPHILS % (AUTO) 57.8 %; PLT - PLATELET COUNT 244 10^3/uL (130-450); RED BLOOD COUNT 4.76 10^6/uL (4.70-6.10); RED CELL DISTRIBUTION WIDTH 15.2 % (12.0-15.0); WHITE BLOOD COUNT 5.8 x10^3/uL (4.8-10.8)
[2023-03-11 05:53] LABS: CREATININE 0.7 mg/dL (0.6-1.3); MAGNESIUM 1.9 mg/dL (1.7-2.3); PHOSPHORUS 2.8 mg/dL (2.5-5.0); POTASSIUM 4.1 mmol/L (3.5-4.5)
[2023-03-11] MEDS: DIVALPROEX DR 250 MG TABLET PO SCH (08:31)
[2023-03-11] MEDS: CITALOPRAM 10 MG TABLET PO SCH (08:31)
[2023-03-11] MEDS: metFORMIN 500 MG TABLET PO SCH (08:46)
[2023-03-11] MEDS ORDERED: NIRMATRELVIR/RITONAVIR PREPACK PO SCH (09:00)
[2023-03-11] MEDS: RITONAVIR 100 MG PO SCH (09:15)
[2023-03-11] MEDS: NIRMATRELVIR PO SCH (09:15)
--- NOTE | 2023-03-11 16:30 | PROVIDER PROGRESS NOTE ---
Assessment/Plan - Problem List (1) Syncope Assessment/Plan: (1) Syncope Conclusion/Plan: Etiology of syncope is not clear. Plan is for admission and for patient to be placed on telemetry. An echocardiogram has been ordered. EKG performed in the emergency room did not reveal any specific abnormality or rhythm change Telemetry revealed no arrhythmia. Echocardiogram performed on March 10, 2023 revealed an ejection fraction of 60-65%. The left ventricular cavity appeared to be small. Patient appeared to have some grade 1 diastolic dysfunction. The right ventricle appears to be of normal size and function. There is no significant valvular heart disease. 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 Plan is to continue Paxlovid medications that interact with Paxlovid will be withheld until he has completed his 5-day course. Encourage use of incentive spirometer on an hourly basis during daylight hours. Patient continues to qualify for hospitalization given his hypoxemia. (4) Depression/Anxiety Plan: Continue valproic acid and Citalopram - Current Meds Current Meds: Current Medications Generic Name Dose Route Start Last Admin Trade Name Freq PRN Reason Stop Dose Admin Albuterol/Ipratropium 3 ml 03/10/23 08:00 03/11/23 14:55 Ipratropium/Albuterol 3 Ml Neb INH 3 ml Q6H CHARLENE Administration Citalopram Hydrobromide 30 mg 03/11/23 09:00 03/11/23 08:31 Citalopram 10 Mg Tablet PO 30 mg DAILY CHARLENE Administration Divalproex Sodium 500 mg 03/11/23 09:00 03/11/23 08:[address] 250 Mg Tablet PO 500 mg BID CHARLENE Administration Heparin Sodium (Porcine) 5,000 unit 03/10/23 09:00 03/11/23 08:34 Heparin 5,000 Unit/Ml Vial SUBQ 5,000 unit BID CHARLENE Administration Metformin HCl 500 mg 03/11/23 08:00 03/11/23 08:46 Metformin 500 Mg Tablet PO 500 mg BIDWM CHARLENE Administration Pantoprazole Sodium 40 mg 03/10/23 21:00 03/11/23 08:31 Pantoprazole 40 Mg Tablet PO 40 mg BID CHARLENE Administration Nirmatrelvir 300mg/ 1 each 03/11/23 09:00 03/11/23 09:15 Ritonavir 100mg PO 03/15/23 21:01 1 each BID CHARLENE Administration Prednisone 40 mg 03/10/23 09:00 03/11/23 08:31 Prednisone 20 Mg Tablet PO 40 mg DAILY CHARLENE Administration Sodium Chloride 10 ml 03/10/23 09:00 03/11/23 08:32 Sodium Chloride Flush 0.9% 10 Ml Syringe IVP 10 ml 0100,0900,1700 CHARLENE Administration Throat Lozenges 1 lozenge 03/10/23 18:50 03/10/23 19:40 Benzocaine/Menthol Lozenge MM 1 lozenge Q2HR PRN Administration Throat pain - Lab Result Fish Bone Diagrams: 03/11/23 05:29 03/11/23 05:29 - Additional Planning My Orders: My Active Orders 03/10/23 15:28 Nebulizer/MDI Tx. [RC] QID 03/10/23 18:50 Benzocaine/Menthol [Cepacol] 1 lozenge MM Q2HR PRN 03/10/23 21:00 Pantoprazole [Protonix] 40 mg PO BID 03/10/23 21:09 Albuterol [Proventil Hfa] 2 puffs INH DAILY PRN 03/11/23 08:00 metFORMIN [Glucophage] 500 mg PO BIDWM 03/11/23 09:00 Citalopram [CeleXA] 30 mg PO DAILY Divalproex Dr [Depakote Dr] 500 mg PO BID Patient Own Med 1 each PO BID 03/12/23 05:00 CBC [CBC - COMP BLD CT W/AUTO DIFF] [HEME] DAILYLAB 03/13/23 05:00 CBC [CBC - COMP BLD CT W/AUTO DIFF] [HEME] DAILYLAB 03/14/23 05:00 CBC [CBC - COMP BLD CT W/AUTO DIFF] [HEME] DAILYLAB 03/15/23 05:00 CBC [CBC - COMP BLD CT W/AUTO DIFF] [HEME] DAILYLAB Subjective - Subjective Patient Reports: Other (Alert. He denies shortness of breath. He denies chest pain and nausea and vomiting.) Objective Vital Signs: Vital Signs - 24 hr 03/10/23 03/11/23 03/11/23 21:00 00:16 05:36 Temperature 36.2 C L 36.3 C L 36.5 C Heart Rate Heart Rate [ 89 65 65 Brachial] Respiratory 20 16 16 Rate Blood Pressure 115/63 111/65 125/69 [Right Brachial artery] O2 Saturation 92 92 92 If not protocol 3 3 3 : Oxygen Flow, liters/minute 03/11/23 03/11/23 03/11/23 08:27 12:07 14:55 Temperature 36.5 C 36.2 C L Heart Rate 85 Heart Rate [ 71 79 Brachial] Respiratory 20 20 16 Rate Blood Pressure 133/73 H 119/76 [Right Brachial artery] O2 Saturation 94 92 If not protocol 3 2 1 : Oxygen Flow, liters/minute 03/11/23 16:07 Temperature 36.7 C Heart Rate Heart Rate [ 97 Brachial] Respiratory 20 Rate Blood Pressure 136/77 H [Right Brachial artery] O2 Saturation 94 If not protocol 1 : Oxygen Flow, liters/minute Oxygen O2 Source [With Activity] Nasal cannula O2 Source Nasal cannula I&O (Last 24 Hrs): Intake and Output Totals x24h 03/09/23 03/10/23 03/11/23 23:59 23:59 23:59 Intake Total 1440 960 Output Total 200 500 Balance 1240 460 General: Alert, Cooperative, No acute distress HEENT: PERRLA, EOMI Neck: Supple, No JVD, No thyromegaly Neuro: Alert, Non Focal Cardiovascular: Other (Positive S1-S2 no extra heart sounds.) Respiratory: Other (Fair air exchange in all lung pulido no wheezing no crackles.) Abdomen: Normal bowel sounds, Soft, No tenderness Extremities: No cyanosis, No edema Skin: No rashes - Results Results: Laboratory Results WBC 5.8 x10^3/uL (4.8-10.8) 03/11/23 05:29 RBC 4.76 10^6/uL (4.70-6.10) 03/11/23 05:29 Hgb 13.6 g/dL (14.0-18.0) L 03/11/23 05:29 Hct 43.5 % (42.0-52.0) 03/11/23 05:29 MCV 91.4 fL (80.0-94.0) 03/11/23 05:29 MCH 28.6 pg (27.0-31.0) 03/11/23 05:29 MCHC 31.3 g/dL (32.0-36.0) L 03/11/23 05:29 RDW 15.2 % (12.0-15.0) H 03/11/23 05:29 Plt Count 244 10^3/uL (130-450) 03/11/23 05:29 MPV 9.7 fL (7.4-11.4) 03/11/23 05:29 Neut # (Auto) 3.4 10^3/uL (1.5-6.6) 03/11/23 05:29 Lymph # (Auto) 1.2 10^3/uL (1.5-3.5) L 03/11/23 05:29 [place] # (Auto) 1.0 10^3/uL (0.0-1.0) 03/11/23 05:29 Eos # (Auto) 0.1 10^3/uL (0.0-0.7) 03/11/23 05:29 Baso # (Auto) 0.0 10^3/uL (0.0-0.1) 03/11/23 05:29 Absolute Nucleated RBC 0.00 x10^3/uL 03/11/23 05:29 Nucleated RBC % 0.0 /100WBC 03/11/23 05:29 Sodium 141 mmol/L (135-145) 03/11/23 05:29 Potassium 4.1 mmol/L (3.5-4.5) 03/11/23 05: Chloride 100 mmol/L (101-111) L 03/11/23 05:29 Carbon Dioxide 38 mmol/L (21-32) H 03/11/23 05:29 Anion Gap 3.0 (6-13) L 03/11/23 05:29 BUN 12 mg/dL (6-20) 03/11/23 05:29 Creatinine 0.7 mg/dL (0.6-1.3) 03/11/23 05:29 Estimated GFR (MDRD) 114 (>89) 03/11/23 05:29 Glucose 117 mg/dL (74-104) H 03/11/23 05:29 Calcium 9.0 mg/dL (8.5-10.3) 03/11/23 05:29 Phosphorus 2.8 mg/dL (2.5-5.0) 03/11/23 05:29 Magnesium 1.9 mg/dL (1.7-2.3) 03/11/23 05:29 Total Bilirubin 0.3 mg/dL (0.2-1.0) 03/10/23 06:00 AST 17 IU/L (10-42) 03/10/23 06:00 ALT 13 IU/L (10-60) 03/10/23 06:00 Alkaline Phosphatase 54 IU/L (42-121) 03/10/23 06:00 Troponin I High Sens 9.6 ng/L (2.3-19.7) 03/10/23 05:01 Total Protein 5.8 g/dL (6.4-8.9) L 03/10/23 06:00 Albumin 3.5 g/dL (3.2-5.5) 03/10/23 06:00 Globulin 2.3 g/dL (2.1-4.2) 03/10/23 06:00 Albumin/Globulin Ratio 1.5 (1.0-2.2) 03/10/23 06:00 Lipase 11 U/L (11-82) 03/10/23 06:00 - Procedures Procedures: Procedures ENDOSCOP EXC OR DEST OF LESION OR TISSUE OF ESOPHA (11/01/12) ESOPHAGOGASTRODUODENOSCOPY [EGD] W/CLOSED BIOPSY (11/02/13) EXCISION OF LOWER ESOPHAGUS, ENDO, DIAGN (06/25/22) EXCISION OF STOMACH, ENDO, DIAGN (06/25/22) ABX Reporting Has patient been on IV antibiotics over the past 48 hours?: No Current Medications - Current Medications Current Medications: Active Medications Albuterol (Albuterol 6.7 Gm Inhaler) 2 puffs INH DAILY PRN PRN Reason: Shortness of Air/Wheezing Albuterol/Ipratropium (Ipratropium/Albuterol 3 Ml Neb) 3 ml INH Q6H [facility] Last Admin: 03/11/23 14:55 Dose: 3 ml Citalopram Hydrobromide (Citalopram 10 Mg Tablet) 30 mg PO DAILY [facility] Last Admin: 03/11/23 08:31 Dose: 30 mg Divalproex Sodium (Divalproex Dr 250 Mg Tablet) 500 mg PO BID [facility] Last Admin: 03/11/23 08:31 Dose: 500 mg Heparin Sodium (Porcine) (Heparin 5,000 Unit/Ml Vial) 5,000 unit SUBQ BID [facility] Last Admin: 03/11/23 08:34 Dose: 5,000 unit Metformin HCl (Metformin 500 Mg Tablet) 500 mg PO BIDWM [facility] Last Admin: 03/11/23 08:46 Dose: 500 mg Pantoprazole Sodium (Pantoprazole 40 Mg Tablet) 40 mg PO BID [facility] Last Admin: 03/11/23 08:31 Dose: 40 mg Nirmatrelvir 300mg/ (Ritonavir 100mg) 1 each PO BID [facility] Stop: 03/15/23 21:01 Last Admin: 03/11/23 09:15 Dose: 1 each Prednisone (Prednisone 20 Mg Tablet) 40 mg PO DAILY [facility] Last Admin: 03/11/23 08:31 Dose: 40 mg Sodium Chloride (Sodium Chloride Flush 0.9% 10 Ml Syringe) 10 ml IVP PRN PRN PRN Reason: NEEDED PER PROVIDER ORDERS Sodium Chloride (Sodium Chloride Flush 0.9% 10 Ml Syringe) 10 ml IVP 0100,0900,1700 [facility] Last Admin: 03/11/23 08:32 Dose: 10 ml Throat Lozenges (Benzocaine/Menthol Lozenge) 1 lozenge MM Q2HR PRN PRN Reason: Throat pain Last Admin: 03/10/23 19:40 Dose: 1 lozenge Aripiprazole [Abilify] 20 mg PO HS 06/18/12 Cholecalciferol (Vitamin D3) [Vitamin D] 5,000 unit PO DAILY 06/18/12 Multivitamin [Multivitamins] 1 each PO DAILY 06/18/12 Pantoprazole Sodium [Protonix] 40 mg PO BID 06/18/12 QUEtiapine [SEROquel] 600 mg PO QPM 06/18/12 Albuterol Sulfate [Proair Hfa] 2 inhaler INH DAILY PRN 11/01/13 Atorvastatin [Lipitor] 10 mg PO QPM 11/01/13 Tiotropium [Spiriva] 1 puffs INH DAILY 09/05/14 Citalopram [CeleXA] 30 mg PO DAILY 08/24/15 metFORMIN [Glucophage] 500 mg PO BIDWM 01/29/23 Carboxymethylcellulose Sodium [Refresh Tears] 1 drops EACHEYE TID PRN 03/10/23 Divalproex Sodium [Depakote] 500 mg PO BID 03/10/23 Nirmatrelvir/Ritonavir [Paxlovid 300-100 mg Dose Pack] 1 each PO BID 03/10/23
[2023-03-12 06:06] LABS: BASOPHILS % (AUTO) 0.2 %; EOSINOPHILS % (AUTO) 0.1 %; HCT - HEMATOCRIT 41.8 % (42.0-52.0); HGB - HEMOGLOBIN 13.1 g/dL (14.0-18.0); LYMPHOCYTES # (AUTO) 2.5 10^3/uL (1.5-3.5); LYMPHOCYTES % (AUTO) 30.9 %; MEAN CORPUSCULAR HEMOGLOBIN 28.5 pg (27.0-31.0); MEAN CORPUSCULAR HGB CONC 31.3 g/dL (32.0-36.0); MEAN CORPUSCULAR VOLUME 90.9 fL (80.0-94.0); MEAN PLATELET VOLUME 9.8 fL (7.4-11.4); MONOCYTES # (AUTO) 0.9 10^3/uL (0.0-1.0); MONOCYTES % (AUTO) 11.5 %; NEUTROPHILS # (AUTO) 4.5 10^3/uL (1.5-6.6); NEUTROPHILS % (AUTO) 55.8 %; PLT - PLATELET COUNT 289 10^3/uL (130-450); RED CELL DISTRIBUTION WIDTH 15.4 % (12.0-15.0); WHITE BLOOD COUNT 8.1 x10^3/uL (4.8-10.8)
--- NOTE | 2023-03-12 22:32 | PROVIDER PROGRESS NOTE ---
Assessment/Plan - Problem List (1) Syncope Assessment/Plan: Etiology of syncope is not clear. Plan is for admission and for patient to be placed on telemetry. An echocardiogram has been ordered. EKG performed in the emergency room did not reveal any specific abnormality or rhythm change Telemetry revealed no arrhythmia. Echocardiogram performed on March 10, 2023 revealed an ejection fraction of 6 0-65%. The left ventricular cavity appeared to be small. Patient appeared to have some grade 1 diastolic dysfunction. The right ventricle appears to be of normal size and function. There is no significant valvular heart disease. EKG has shortened DE interval and delta waves which is worrisome for Sandoval Parkinson White syndrome. 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 Plan is to continue Paxlovid medications that interact with Paxlovid will be withheld until he has completed his 5-day course. Encourage use of incentive spirometer on an hourly basis during daylight hours. Patient continues to qualify for hospitalization given his hypoxemia. (4) Depression/Anxiety Plan: Continue valproic acid and Citalopram - Current Meds Current Meds: Current Medications Generic Name Dose Route Start Last Admin Trade Name Freq PRN Reason Stop Dose Admin Albuterol/Ipratropium 3 ml 03/10/23 08:00 03/12/23 18:03 Ipratropium/Albuterol 3 Ml Neb INH 3 ml Q6H CHARLENE Administration Citalopram Hydrobromide 30 mg 03/11/23 09:00 03/12/23 09:06 Citalopram 10 Mg Tablet PO 30 mg DAILY CHARLENE Administration Divalproex Sodium 500 mg 03/11/23 09:00 03/12/23 20:[address] 250 Mg Tablet PO 500 mg BID CHARLENE Administration Heparin Sodium (Porcine) 5,000 unit 03/10/23 09:00 03/12/23 20:10 Heparin 5,000 Unit/Ml Vial SUBQ 5,000 unit BID CHARLENE Administration Metformin HCl 500 mg 03/11/23 08:00 03/12/23 17:07 Metformin 500 Mg Tablet PO 500 mg BIDWM CHARLENE Administration Pantoprazole Sodium 40 mg 03/10/23 21:00 03/12/23 20:10 Pantoprazole 40 Mg Tablet PO 40 mg BID CHARLENE Administration Nirmatrelvir 300mg/ 1 each 03/11/23 09:00 03/12/23 20:09 Ritonavir 100mg PO 03/15/23 21:01 1 each BID CHARLENE Administration Prednisone 40 mg 03/10/23 09:00 03/12/23 09:05 Prednisone 20 Mg Tablet PO 40 mg DAILY CHARLENE Administration Throat Lozenges 1 lozenge 03/10/23 18:50 03/11/23 20:29 Benzocaine/Menthol Lozenge MM 1 lozenge Q2HR PRN Administration Throat pain - Lab Result Fish Bone Diagrams: 03/14/23 05:28 03/13/23 05:29 - Additional Planning My Orders: My Active Orders 03/12/23 Evaluate and Treat OT [OT] Routine Evaluate and Treat PT [PT] Routine 03/13/23 05:00 BMP - BASIC METABOLIC PANEL [CHEM] DAILYLAB CBC [CBC - COMP BLD CT W/AUTO DIFF] [HEME] DAILYLAB MAGNESIUM [CHEM] Routine PHOSPHORUS [CHEM] Routine 03/14/23 05:00 CBC [CBC - COMP BLD CT W/AUTO DIFF] [HEME] DAILYLAB 03/15/23 05:00 CBC [CBC - COMP BLD CT W/AUTO DIFF] [HEME] DAILYLAB Subjective - Subjective Patient Reports: Other (Alert. Continues to require oxygen. Denies dyspnea, chest pain, abdominal pain) Objective Vital Signs: Vital Signs - 24 hr 03/11/23 03/12/23 03/12/23 23:53 05:00 07:18 Temperature 36.7 C 36.6 C Heart Rate 78 Heart Rate [ 80 66 Brachial] Respiratory 18 18 18 Rate Blood Pressure 139/83 H 149/77 H [Right Brachial artery] O2 Saturation 94 95 If not protocol 3 3 3 : Oxygen Flow, liters/minute 03/12/23 03/12/23 03/12/23 07:20 09:00 13:00 Temperature 36.7 C 36.5 C Heart Rate Heart Rate [ 66 89 Brachial] Respiratory 16 18 Rate Blood Pressure 124/76 128/69 [Right Brachial artery] O2 Saturation 95 94 If not protocol 3 3 3 : Oxygen Flow, liters/minute 03/12/23 03/12/23 03/12/23 13:12 16:51 17:04 Temperature 36.7 C Heart Rate 82 Heart Rate [ 60 88 Brachial] Respiratory 20 18 Rate Blood Pressure 106/43 L 119/63 [Right Brachial artery] O2 Saturation 95 93 If not protocol 3 2 2 : Oxygen Flow, liters/minute 03/12/23 03/12/23 18:04 20:07 Temperature Heart Rate 70 Heart Rate [ Brachial] Respiratory 20 Rate Blood Pressure [Right Brachial artery] O2 Saturation 93 If not protocol 2 1 : Oxygen Flow, liters/minute Oxygen O2 Source [With Activity] Nasal cannula O2 Source Nasal cannula I&O (Last 24 Hrs): Intake and Output Totals x24h 03/10/23 03/11/23 03/12/23 23:59 23:59 23:59 Intake Total 1440 1920 630 Output Total 925 121 2618 Balance 1240 1420 -555 General: Alert, No acute distress HEENT: Other Neck: No JVD, No thyromegaly Neuro: Alert, Non Focal Cardiovascular: Other (Positive S1-S2 no extra heart sounds) Respiratory: Other (Improved air exchange in all lung pulido no wheezing no crackles) Abdomen: Normal bowel sounds, Soft, No tenderness Extremities: No cyanosis, No edema Skin: No rashes - Results Results: Laboratory Results WBC 8.1 x10^3/uL (4.8-10.8) 03/12/23 05:24 RBC 4.60 10^6/uL (4.70-6.10) L 03/12/23 05:24 Hgb 13.1 g/dL (14.0-18.0) L 03/12/23 05:24 Hct 41.8 % (42.0-52.0) L 03/12/23 05:24 MCV 90.9 fL (80.0-94.0) 03/12/23 05:24 MCH 28.5 pg (27.0-31.0) 03/12/23 05:24 MCHC 31.3 g/dL (32.0-36.0) L 03/12/23 05:24 RDW 15.4 % (12.0-15.0) H 03/12/23 05:24 Plt Count 289 10^3/uL (130-450) 03/12/23 05:24 MPV 9.8 fL (7.4-11.4) 03/12/23 05:24 Neut # (Auto) 4.5 10^3/uL (1.5-6.6) 03/12/23 05:24 Lymph # (Auto) 2.5 10^3/uL (1.5-3.5) 03/12/23 05:24 [place] # (Auto) 0.9 10^3/uL (0.0-1.0) 03/12/23 05:24 Eos # (Auto) 0.0 10^3/uL (0.0-0.7) 03/12/23 05:24 Baso # (Auto) 0.0 10^3/uL (0.0-0.1) 03/12/23 05:24 Absolute Nucleated RBC 0.00 x10^3/uL 03/12/23 05:24 Nucleated RBC % 0.0 /100WBC 03/12/23 05:24 Sodium 141 mmol/L (135-145) 03/11/23 05:29 Potassium 4.1 mmol/L (3.5-4.5) 03/11/23 05:29 Chloride 100 mmol/L (101-111) L 03/11/23 05:29 Carbon Dioxide 38 mmol/L (21-32) H 03/11/23 05:29 Anion Gap 3.0 (6-13) L 03/11/23 05:29 BUN 12 mg/dL (6-20) 03/11/23 05:29 Creatinine 0.7 mg/dL (0.6-1.3) 03/11/23 05:29 Estimated GFR (MDRD) 114 (>89) 03/11/23 05:29 Glucose 117 mg/dL (74-104) H 03/11/23 05:29 Calcium 9.0 mg/dL (8.5-10.3) 03/11/23 05:29 Phosphorus 2.8 mg/dL (2.5-5.0) 03/11/23 05:29 Magnesium 1.9 mg/dL (1.7-2.3) 03/11/23 05:29 Total Bilirubin 0.3 mg/dL (0.2-1.0) 03/10/23 06:00 AST 17 IU/L (10-42) 03/10/23 06:00 ALT 13 IU/L (10-60) 03/10/23 06:00 Alkaline Phosphatase 54 IU/L (42-121) 03/10/23 06:00 Troponin I High Sens 9.6 ng/L (2.3-19.7) 03/10/23 05:01 Total Protein 5.8 g/dL (6.4-8.9) L 03/10/23 06:00 Albumin 3.5 g/dL (3.2-5.5) 03/10/23 06:00 Globulin 2.3 g/dL (2.1-4.2) 03/10/23 06:00 Albumin/Globulin Ratio 1.5 (1.0-2.2) 03/10/23 06:00 Lipase 11 U/L (11-82) 03/10/23 06:00 - Procedures Procedures: Procedures ENDOSCOP EXC OR DEST OF LESION OR TISSUE OF ESOPHA (11/01/12) ESOPHAGOGASTRODUODENOSCOPY [EGD] W/CLOSED BIOPSY (11/02/13) EXCISION OF LOWER ESOPHAGUS, ENDO, DIAGN (06/25/22) EXCISION OF STOMACH, ENDO, DIAGN (06/25/22) Current Medications - Current Medications Current Medications: Active Medications Albuterol (Albuterol 6.7 Gm Inhaler) 2 puffs INH DAILY PRN PRN Reason: Shortness of Air/Wheezing Albuterol/Ipratropium (Ipratropium/Albuterol 3 Ml Neb) 3 ml INH Q6H [facility] Last Admin: 03/12/23 18:03 Dose: 3 ml Citalopram Hydrobromide (Citalopram 10 Mg Tablet) 30 mg PO DAILY [facility] Last Admin: 03/12/23 09:06 Dose: 30 mg Divalproex Sodium (Divalproex Dr 250 Mg Tablet) 500 mg PO BID [facility] Last Admin: 03/12/23 20:09 Dose: 500 mg Heparin Sodium (Porcine) (Heparin 5,000 Unit/Ml Vial) 5,000 unit SUBQ BID [facility] Last Admin: 03/12/23 20:10 Dose: 5,000 unit Metformin HCl (Metformin 500 Mg Tablet) 500 mg PO BIDWM [facility] Last Admin: 03/12/23 17:07 Dose: 500 mg Pantoprazole Sodium (Pantoprazole 40 Mg Tablet) 40 mg PO BID [facility] Last Admin: 03/12/23 20:10 Dose: 40 mg Nirmatrelvir 300mg/ (Ritonavir 100mg) 1 each PO BID [facility] Stop: 03/15/23 21:01 Last Admin: 03/12/23 20:09 Dose: 1 each Prednisone (Prednisone 20 Mg Tablet) 40 mg PO DAILY [facility] Last Admin: 03/12/23 09:05 Dose: 40 mg Throat Lozenges (Benzocaine/Menthol Lozenge) 1 lozenge MM Q2HR PRN PRN Reason: Throat pain Last Admin: 03/11/23 20:29 Dose: 1 lozenge Aripiprazole [Abilify] 20 mg PO HS 06/18/12 Cholecalciferol (Vitamin D3) [Vitamin D] 5,000 unit PO DAILY 06/18/12 Multivitamin [Multivitamins] 1 each PO DAILY 06/18/12 Pantoprazole Sodium [Protonix] 40 mg PO BID 06/18/12 QUEtiapine [SEROquel] 600 mg PO QPM 06/18/12 Albuterol Sulfate [Proair Hfa] 2 inhaler INH DAILY PRN 11/01/13 Atorvastatin [Lipitor] 10 mg PO QPM 11/01/13 Tiotropium [Spiriva] 1 puffs INH DAILY 09/05/14 Citalopram [CeleXA] 30 mg PO DAILY 08/24/15 metFORMIN [Glucophage] 500 mg PO BIDWM 01/29/23 Carboxymethylcellulose Sodium [Refresh Tears] 1 drops EACHEYE TID PRN 03/10/23 Divalproex Sodium [Depakote] 500 mg PO BID 03/10/23 Nirmatrelvir/Ritonavir [Paxlovid 300-100 mg Dose Pack] 1 each PO BID 03/10/23
[2023-03-13 06:07] LABS: BASOPHILS % (AUTO) 0.4 %; HCT - HEMATOCRIT 43.7 % (42.0-52.0); HGB - HEMOGLOBIN 13.6 g/dL (14.0-18.0); LYMPHOCYTES # (AUTO) 2.8 10^3/uL (1.5-3.5); LYMPHOCYTES % (AUTO) 30.7 %; MEAN CORPUSCULAR HEMOGLOBIN 28.4 pg (27.0-31.0); MEAN CORPUSCULAR HGB CONC 31.1 g/dL (32.0-36.0); MEAN CORPUSCULAR VOLUME 91.2 fL (80.0-94.0); MEAN PLATELET VOLUME 9.4 fL (7.4-11.4); MONOCYTES % (AUTO) 10.8 %; NEUTROPHILS % (AUTO) 54.5 %; PLT - PLATELET COUNT 285 10^3/uL (130-450); RED BLOOD COUNT 4.79 10^6/uL (4.70-6.10); RED CELL DISTRIBUTION WIDTH 15.9 % (12.0-15.0); WHITE BLOOD COUNT 9.2 x10^3/uL (4.8-10.8)
[2023-03-13 06:47] LABS: CALCIUM 9.3 mg/dL (8.5-10.3); CREATININE 0.8 mg/dL (0.6-1.3); MAGNESIUM 1.6 mg/dL (1.7-2.3); PHOSPHORUS 3.6 mg/dL (2.5-5.0); POTASSIUM 4.5 mmol/L (3.5-4.5)
--- NOTE | 2023-03-13 22:48 | PROVIDER PROGRESS NOTE ---
Assessment/Plan - Problem List (1) Syncope Assessment/Plan: Etiology of syncope is not clear. Plan is for admission and for patient to be placed on telemetry. An echocardiogram has been ordered. EKG performed in the emergency room did not reveal any specific abnormality or rhythm change Telemetry revealed no arrhythmia. Echocardiogram performed on March 10, 2023 revealed an ejection fraction of 60-65%. The left ventricular cavity appeared to be small. Patient appeared to have some grade 1 diastolic dysfunction. The right ventricle appears to be of normal size and function. There is no significant valvular heart disease. EKG has shortened WI interval and delta waves which is worrisome for Sandoval Parkinson White syndrome. 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 Plan is to continue Paxlovid medications that interact with Paxlovid will be withheld until he has completed his 5-day course. Encourage use of incentive spirometer on an hourly basis during daylight hours. Wean oxygen to off as tolerated. Patient continues to qualify for hospitalization given his hypoxemia. (4) Depression/Anxiety Plan: Continue valproic acid and Citalopram - Current Meds Current Meds: Current Medications Generic Name Dose Route Start Last Admin Trade Name Freq PRN Reason Stop Dose Admin Albuterol/Ipratropium 3 ml 03/10/23 08:00 03/13/23 20:03 Ipratropium/Albuterol 3 Ml Neb INH 3 ml Q6H CHARLENE Administration Citalopram Hydrobromide 30 mg 03/11/23 09:00 03/13/23 08:35 Citalopram 10 Mg Tablet PO 30 mg DAILY CHARLENE Administration Divalproex Sodium 500 mg 03/11/23 09:00 03/13/23 20:[address] 250 Mg Tablet PO 500 mg BID CHARLENE Administration Heparin Sodium (Porcine) 5,000 unit 03/10/23 09:00 03/13/23 20:43 Heparin 5,000 Unit/Ml Vial SUBQ 5,000 unit BID CHARLENE Administration Metformin HCl 500 mg 03/11/23 08:00 03/13/23 17:08 Metformin 500 Mg Tablet PO 500 mg BIDWM CHARLENE Administration Pantoprazole Sodium 40 mg 03/10/23 21:00 03/13/23 20:39 Pantoprazole 40 Mg Tablet PO 40 mg BID CHARLENE Administration Nirmatrelvir 300mg/ 1 each 03/11/23 09:00 03/13/23 20:40 Ritonavir 100mg PO 03/15/23 21:01 1 each BID CHARLENE Administration Prednisone 40 mg 03/10/23 09:00 03/13/23 08:35 Prednisone 20 Mg Tablet PO 40 mg DAILY CHARLENE Administration Throat Lozenges 1 lozenge 03/10/23 18:50 03/11/23 20:29 Benzocaine/Menthol Lozenge MM 1 lozenge Q2HR PRN Administration Throat pain - Lab Result [place] Diagrams: 03/14/23 05:28 03/13/23 05:29 - Additional Planning My Orders: My Active Orders 03/14/23 05:00 CBC [CBC - COMP BLD CT W/AUTO DIFF] [HEME] DAILYLAB 03/15/23 05:00 CBC [CBC - COMP BLD CT W/AUTO DIFF] [HEME] DAILYLAB Subjective - Subjective Patient Reports: Other (Alert. Continues on 1 LPM by nasal cannula. No other complaints at this time.) Objective Vital Signs: Vital Signs - 24 hr 03/12/23 03/13/23 03/13/23 23:56 07:17 07:20 Temperature 36.6 C Heart Rate 66 Heart Rate [ 71 Brachial] Respiratory 18 18 Rate Blood Pressure 132/74 H [Right Brachial artery] O2 Saturation 94 O2 Saturation [ With Activity] O2 Saturation [ Without Activity] If not protocol 1 1 1 : Oxygen Flow, liters/minute 03/13/23 03/13/23 03/13/23 08:00 11:43 16:00 Temperature 36.6 C 36.0 C L Heart Rate Heart Rate [ 83 84 Brachial] Respiratory 18 16 Rate Blood Pressure 150/77 H 134/77 H [Right Brachial artery] O2 Saturation 92 93 O2 Saturation [ 91 L With Activity] O2 Saturation [ 90 L Without Activity] If not protocol 1 : Oxygen Flow, liters/minute 03/13/23 03/13/23 20:05 20:53 Temperature Heart Rate 85 Heart Rate [ Brachial] Respiratory 20 Rate Blood Pressure [Right Brachial artery] O2 Saturation 92 O2 Saturation [ With Activity] O2 Saturation [ Without Activity] If not protocol : Oxygen Flow, liters/minute Oxygen O2 Source [Without Activity] Room air O2 Source [With Activity] Room air O2 Source Room air I&O (Last 24 Hrs): Intake and Output Totals x24h 03/11/23 03/12/23 03/13/23 23:59 23:59 23:59 Intake Total 1685 748 4373 Output Total 500 1185 2014 Balance 1420 -555 625 General: Alert, Cooperative, No acute distress Neck: Supple, No JVD, No thyromegaly Neuro: Alert Cardiovascular: Regular rate, Normal S1, Normal S2, No murmurs Respiratory: Chest non-tender, No respiratory distress, Breath sounds nml Abdomen: Normal bowel sounds, Soft, No tenderness Extremities: No cyanosis, No edema Skin: No rashes - Results Results: Laboratory Results WBC 9.2 x10^3/uL (4.8-10.8) 03/13/23 05:29 RBC 4.79 10^6/uL (4.70-6.10) 03/13/23 05:29 Hgb 13.6 g/dL (14.0-18.0) L 03/13/23 05:29 Hct 43.7 % (42.0-52.0) 03/13/23 05:29 MCV 91.2 fL (80.0-94.0) 03/13/23 05:29 MCH 28.4 pg (27.0-31.0) 03/13/23 05:29 MCHC 31.1 g/dL (32.0-36.0) L 03/13/23 05:29 RDW 15.9 % (12.0-15.0) H 03/13/23 05:29 Plt Count 285 10^3/uL (130-450) 03/13/23 05:29 MPV 9.4 fL (7.4-11.4) 03/13/23 05:29 Neut # (Auto) 5.0 10^3/uL (1.5-6.6) 03/13/23 05:29 Lymph # (Auto) 2.8 10^3/uL (1.5-3.5) 03/13/23 05:29 [place] # (Auto) 1.0 10^3/uL (0.0-1.0) 03/13/23 05:29 Eos # (Auto) 0.0 10^3/uL (0.0-0.7) 03/13/23 05:29 Baso # (Auto) 0.0 10^3/uL (0.0-0.1) 03/13/23 05:29 Absolute Nucleated RBC 0.00 x10^3/uL 03/13/23 05:29 Nucleated RBC % 0.0 /100WBC 03/13/23 05:29 Sodium 143 mmol/L (135-145) 03/13/23 05:29 Potassium 4.5 mmol/L (3.5-4.5) 03/13/23 05:29 Chloride 99 mmol/L (101-111) L 03/13/23 05:29 Carbon Dioxide 38 mmol/L (21-32) H 03/13/23 05:29 Anion Gap 6.0 (6-13) 03/13/23 05:29 BUN 13 mg/dL (6-20) 03/13/23 05:29 Creatinine 0.8 mg/dL (0.6-1.3) 03/13/23 05:29 Estimated GFR (MDRD) 97 (>89) 03/13/23 05:29 Glucose 83 mg/dL (74-104) 03/13/23 05:29 Calcium 9.3 mg/dL (8.5-10.3) 03/13/23 05:29 Phosphorus 3.6 mg/dL (2.5-5.0) 03/13/23 05:29 Magnesium 1.6 mg/dL (1.7-2.3) L 03/13/23 05:29 Total Bilirubin 0.3 mg/dL (0.2-1.0) 03/10/23 06:00 AST 17 IU/L (10-42) 03/10/23 06:00 ALT 13 IU/L (10-60) 03/10/23 06:00 Alkaline Phosphatase 54 IU/L (42-121) 03/10/23 06:00 Troponin I High Sens 9.6 ng/L (2.3-19.7) 03/10/23 05:01 Total Protein 5.8 g/dL (6.4-8.9) L 03/10/23 06:00 Albumin 3.5 g/dL (3.2-5.5) 03/10/23 06:00 Globulin 2.3 g/dL (2.1-4.2) 03/10/23 06:00 Albumin/Globulin Ratio 1.5 (1.0-2.2) 03/10/23 06:00 Lipase 11 U/L (11-82) 03/10/23 06:00 - Procedures Procedures: Procedures ENDOSCOP EXC OR DEST OF LESION OR TISSUE OF ESOPHA (11/01/12) ESOPHAGOGASTRODUODENOSCOPY [EGD] W/CLOSED BIOPSY (11/02/13) EXCISION OF LOWER ESOPHAGUS, ENDO, DIAGN (06/25/22) EXCISION OF STOMACH, ENDO, DIAGN (06/25/22) Current Medications - Current Medications Current Medications: Active Medications Albuterol (Albuterol 6.7 Gm Inhaler) 2 puffs INH DAILY PRN PRN Reason: Shortness of Air/Wheezing Albuterol/Ipratropium (Ipratropium/Albuterol 3 Ml Neb) 3 ml INH Q6H [facility] Last Admin: 03/13/23 20:03 Dose: 3 ml Citalopram Hydrobromide (Citalopram 10 Mg Tablet) 30 mg PO DAILY [facility] Last Admin: 03/13/23 08:35 Dose: 30 mg Divalproex Sodium (Divalproex Dr 250 Mg Tablet) 500 mg PO BID [facility] Last Admin: 03/13/23 20:39 Dose: 500 mg Heparin Sodium (Porcine) (Heparin 5,000 Unit/Ml Vial) 5,000 unit SUBQ BID [facility] Last Admin: 03/13/23 20:43 Dose: 5,000 unit Metformin HCl (Metformin 500 Mg Tablet) 500 mg PO BIDWM [facility] Last Admin: 03/13/23 17:08 Dose: 500 mg Pantoprazole Sodium (Pantoprazole 40 Mg Tablet) 40 mg PO BID [facility] Last Admin: 03/13/23 20:39 Dose: 40 mg Nirmatrelvir 300mg/ (Ritonavir 100mg) 1 each PO BID [facility] Stop: 03/15/23 21:01 Last Admin: 03/13/23 20:40 Dose: 1 each Prednisone (Prednisone 20 Mg Tablet) 40 mg PO DAILY [facility] Last Admin: 03/13/23 08:35 Dose: 40 mg Throat Lozenges (Benzocaine/Menthol Lozenge) 1 lozenge MM Q2HR PRN PRN Reason: Throat pain Last Admin: 03/11/23 20:29 Dose: 1 lozenge Aripiprazole [Abilify] 20 mg PO HS 06/18/12 Cholecalciferol (Vitamin D3) [Vitamin D] 5,000 unit PO DAILY 06/18/12 Multivitamin [Multivitamins] 1 each PO DAILY 06/18/12 Pantoprazole Sodium [Protonix] 40 mg PO BID 06/18/12 QUEtiapine [SEROquel] 600 mg PO QPM 06/18/12 Albuterol Sulfate [Proair Hfa] 2 inhaler INH DAILY PRN 11/01/13 Atorvastatin [Lipitor] 10 mg PO QPM 11/01/13 Tiotropium [Spiriva] 1 puffs INH DAILY 09/05/14 Citalopram [CeleXA] 30 mg PO DAILY 08/24/15 metFORMIN [Glucophage] 500 mg PO BIDWM 01/29/23 Carboxymethylcellulose Sodium [Refresh Tears] 1 drops EACHEYE TID PRN 03/10/23 Divalproex Sodium [Depakote] 500 mg PO BID 03/10/23 Nirmatrelvir/Ritonavir [Paxlovid 300-100 mg Dose Pack] 1 each PO BID 03/10/23
[2023-03-14 05:45] LABS: BASOPHILS % (AUTO) 0.6 %; EOSINOPHILS % (AUTO) 0.1 %; HGB - HEMOGLOBIN 14.8 g/dL (14.0-18.0); LYMPHOCYTES % (AUTO) 30.3 %; MEAN CORPUSCULAR HGB CONC 32.9 g/dL (32.0-36.0); MEAN CORPUSCULAR VOLUME 88.2 fL (80.0-94.0); MEAN PLATELET VOLUME 9.6 fL (7.4-11.4); MONOCYTES % (AUTO) 10.1 %; NEUTROPHILS % (AUTO) 52.5 %; PLT - PLATELET COUNT 368 10^3/uL (130-450); RED CELL DISTRIBUTION WIDTH 15.5 % (12.0-15.0); WHITE BLOOD COUNT 13.6 x10^3/uL (4.8-10.8)
[2023-03-14 05:54] LABS: SLIDE REVIEW? Indicated
[2023-03-14 07:02] LABS: ABNORMAL LYMPHS % (MANUAL) 0 %; BAND NEUTROPHILS % (MANUAL) 0 %
[2023-03-14 07:06] LABS: LYMPHOCYTES # (MANUAL) 5.3 10^3/uL (1.5-3.5); LYMPHOCYTES % (MANUAL) 24 %; MYELOCYTES % (MANUAL) 2 %; NEUTROPHILS # (MANUAL) 7.1 10^3/uL (1.5-6.6); REACTIVE LYMPHS % (MANUAL) 15 %
[2023-03-14 07:07] LABS: DIFFERENTIAL COMMENT MANUAL DIFFERENTIAL; PLATELET ESTIMATE, MANUAL NORMAL (130-450,000) (NORMAL); RBC MORPHOLOGY (MULTIPLE) 3+ ANISOCYTOSIS (NORMAL)
--- NOTE | 2023-03-14 08:20 | DISCHARGE SUMMARY ---
Discharge Summary Admit Date: 03/10/23 Discharge Date: 03/14/23 Discharging Provider: Gibran Ramirez MD Primary Care Provider: PCP is not known Code Status: Attempt Resuscitation Condition at Discharge: Good Discharge Disposition: 03 SNF DC/Xfer - DIAGNOSES Admission Diagnoses: (1) Syncope (2) COVID-19 with pulmonary comorbidity (3) Hypoxemia (4) Depression/Anxiety Discharge Diagnoses with Status of Each Condition: (1) Syncope (2) COVID-19 with pulmonary comorbidity (3) Hypoxemia (4) Depression/Anxiety - HPI History of Present Illness: Vidal Damon is a 62 -year-old man admitted on March 10, 2023 after presenting to the [facility] emergency room for a syncopal episode. 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 He was recently diagnosed with COVID 19 and was placed on Paxlovid. In the emergency room he underwent a CT scan of the chest, cervical spine and head CT. CT scan of the chest revealed no rib fractures it did reveal a persistently elevated left hemidiaphragm. CT scan of the spine revealed no fracture or traumatic subluxation and CT scan of the head revealed no acute intracranial pathology. Patient reports no history of seizure. Mr. Damon was admitted to the hospital and placed on telemetry. Telemetry did not reveal any significant arrhythmia. EKG demonstrated sinus rhythm. EKG also demonstrated a borderline short MA interval and what appears to be some delta waves in lead II, lead III, and aVF. Patient demonstrated no arrhythmias during his hospitalization. On March 10, 2023 he underwent an echocardiogram which revealed a left ventricular cavity that was small in size. Overall left ventricular systolic function is normal with an ejection fraction of 60%. The study did demonstrate grade 1 diastolic dysfunction. Right ventricular size is normal and right ventricular function is normal. The study did not demonstrates any significant valvular heart disease. During his hospitalization treatment was continued for his COVID-19 infection with Paxlovid. The patient required multiple days of admission due to hypoxemia. His hypoxemia has since resolved and he is stable for discharge to a half-way facility. Please note that some of his medications have been withheld due to the fact that he is on Paxlovid. His outpatient medical regiment should be restarted after he completes his course of Paxlovid. Recommend discontinuing quetiapine because it is contraindicated with patients on Spiriva. Recommend withholding aripiprazole until patient completes his course of Paxlovid. Patient is stable for discharge. CODE STATUS: Full code - HOSPITAL COURSE Hospital Course: See History of Present Illness - ALLERGIES Allergies/Adverse Reactions: Allergies Allergy/AdvReac Type Severity Reaction Status Date / Time No Known Drug Allergies Allergy Verified 03/10/23 04:36 - MEDICATIONS Home Medications: Ambulatory Orders Medication Instructions Recorded Confirmed Aripiprazole [Abilify] 20 mg PO HS 06/18/12 03/10/23 Cholecalciferol (Vitamin D3) 5,000 unit PO DAILY 06/18/12 03/10/23 [Vitamin D3] Multivitamin [Multivitamins] 1 each PO DAILY 06/18/12 03/10/23 Pantoprazole Sodium [Protonix] 40 mg PO BID 06/18/12 03/10/23 Albuterol Sulfate [Proair Hfa 2 inhaler INH DAILY PRN 11/01/13 03/10/23 Inhaler] Atorvastatin [Lipitor] 10 mg PO QPM 11/01/13 03/10/23 Tiotropium [Spiriva] 1 puffs INH DAILY 09/05/14 03/10/23 Citalopram [CeleXA] 30 mg PO DAILY 08/24/15 03/10/23 metFORMIN [Glucophage] 500 mg PO BIDWM 01/29/23 03/10/23 Carboxymethylcellulose Sodium 1 drops EACHEYE TID PRN 03/10/23 03/10/23 [Refresh Tears] Divalproex Sodium [Depakote] 500 mg PO BID 03/10/23 03/10/23 Nirmatrelvir/Ritonavir [Paxlovid 1 each PO BID 03/10/23 03/10/23 300-100 mg Dose Pack] Citalopram [CeleXA] 30 mg PO DAILY tab 03/14/[address] [Depakote Dr] 500 mg PO BID tab 03/14/23 - PHYSICAL EXAM AT DISCHARGE General Appearance: positive: No acute distress, Alert ENT: positive: Pharynx nml Neck: positive: Thyroid nml, No JVD, Trachea midline Respiratory: positive: Other (Good air exchange in all lung pulido no wheezing no crackles.) Cardiovascular: positive: Other (Positive S1-S2 no extra heart sounds.) Abdomen: positive: Non-tender, No organomegaly, Nml bowel sounds, No distention Skin: positive: No rash Extremities: positive: No pedal edema Neurologic/Psychiatric: positive: Other (Nonfocal.) - LABS Result Diagrams: 03/14/23 05:28 03/13/23 05:29 - FOLLOW UP Follow Up: Follow up with primary care provider in 1-2 weeks. If you do not have a primary care provide, please obtain one. - TIME SPENT Time Spent in Discharge (Minutes): 28
--- NOTE | 2023-03-14 08:20 | Discharge Plan ---
"Discharge Plan for SNF / [facility] - Discharge Plan And Transition Orders Problem Reviewed?: Yes Disposition: 03 SNF DC/Xfer Condition: Good Allergies and Adverse Reactions: Allergies Allergy/AdvReac Type Severity Reaction Status Date / Time No Known Drug Allergies Allergy Verified 03/10/23 04:36 Health Concerns: Vidal Damon is a 62 -year-old man admitted on March 10, 2023 after presenting to the [facility] emergency room for a syncopal episode. 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 He was recently diagnosed with COVID 19 and was placed on Paxlovid. In the emergency room he underwent a CT scan of the chest, cervical spine and head CT. CT scan of the chest revealed no rib fractures it did reveal a persistently elevated left hemidiaphragm. CT scan of the spine revealed no fracture or traumatic subluxation and CT scan of the head revealed no acute intracranial pathology. Patient reports no history of seizure. Mr. Damon was admitted to the hospital and placed on telemetry. Telemetry did not reveal any significant arrhythmia. EKG demonstrated sinus rhythm. EKG also demonstrated a borderline short ND interval and what appears to be some delta waves in lead II, lead III, and aVF. Patient demonstrated no arrhythmias during his hospitalization. On March 10, 2023 he underwent an echocardiogram which revealed a left ventricular cavity that was small in size. Overall left ventricular systolic function is normal with an ejection fraction of 60%. The study did demonstrate grade 1 diastolic dysfunction. Right ventricular size is normal and right ventricular function is normal. The study did not demonstrates any significant valvular heart disease. During his hospitalization treatment was continued for his COVID-19 infection with Paxlovid. The patient required multiple days of admission due to hypoxemia. His hypoxemia has since resolved and he is stable for discharge to a retirement facility. Please note that some of his medications have been withheld due to the fact that he is on Paxlovid. His outpatient medical regiment should be restarted after he completes his course of Paxlovid. Recommend discontinuing quetiapine because it is contraindicated with patients on Spiriva. Recommend withholding aripiprazole until patient completes his course of Paxlovid. Patient has one more day of treatment with Paxlovid Patient is stable for discharge. CODE STATUS: Full code Plan of Treatment: 1. Continue all medications as prescribed. 2. Recommend completing 5-day course of Paxlovid. Patient has one more day of treatment with Paxlovid 3. Recommend discontinuing quetiapine because it is contraindicated with patients on Spiriva. 4. Recommend withholding aripiprazole until patient completes his course of Paxlovid. 5. Recommend patient be seen by cardiology. He may also benefit from a Holter monitor. Care Goals: Goals to return to baseline functioning. At this time he is a permanent resident of a retirement facility. Assessment: The etiology of patient's syncopal episode is not clear the etiology of patient's syncopal event is not clear but may be secondary to [id number] syndrome. There is some concern for [id number] given the fact that he has a borderline shortened ND interval and he appears to have some delta waves on his EKG. A copy of his EKG has been included in his packet. Recommend consultation with cardiology. Hypoxemia is most likely related to patient's underlying COPD in association with COVID-19 infection. Hypoxemia has resolved. - SNF / SHELTER Transition Orders Admit to (Facility): [facility] Discharge Diagnosis: (1) Syncope (2) COVID-19 with pulmonary comorbidity (3) Hypoxemia (4) Depression/Anxiety Medicare Certification Statement: I certify that [facility] Hospital retirement care is medically necessary on a continuing basis for any of the conditions for which she/he is receiving care during hospitalization. Notify PCP of admission and forward orders to primary provider for signature. Other Notification Orders: Call PCP immediately if patient develops dyspnea, chest pain/tightness or edema. Additional Bowel Program Orders: If no BM after 2 days, nurse may give M.O.M. 30ml PO PRN and/or ducolax Supp 1 ND and/or HO 250mg P.O., and/or senna 1-2 tabs PO. On day 3 nurse may give repeat above order until residents constipation is resolved. Annual Influenza Vaccine (between Oct 08 and May 07): Yes Two-step PPD per [facility] [phone] or approved exception documents: Yes Medication Orders: PLEASE REFER TO THE DISCHARGE MEDICATION LIST. - Diet Type: Regular Texture: Regular Liquids: Thin May have monthly special meal: Yes - Therapies | Activity Activity: No Restrictions Weight Bearing: Full Weight Additional Instructions: Recommend discontinuing quetiapine because it is contraindicated with patients on Spiriva. Recommend withholding aripiprazole until patient completes his course of Paxlovid. Recommend patient be seen by cardiology. He may also benefit from a Holter monitor. Follow Up: Follow-up with physician associated with [facility]"
[2023-03-14 12:44] VITALS: BP 132/79; O2SAT 93
== END 2023-03-14 12:30 | DRG 312 ==
LOC: EDUNIT# → ED 04:28 → MS2 07:29
PROVIDERS: ADMIT Internal Medicine; ATTEND Internal Medicine
PROC: 0HQ1XZZ Repair Face Skin, External Approach (ICD-10-PCS; principal; 2023-03-10)
DX: R55 Syncope and collapse (principal); U07.1 COVID-19; J96.00 Acute respiratory failure, unspecified whether with hypoxia or hypercapnia; J96.01 Acute respiratory failure with hypoxia; S01.81XA Laceration without foreign body of other part of head, initial encounter; W19.XXXA Unspecified fall, initial encounter; H10.9 Unspecified conjunctivitis; R94.31 Abnormal electrocardiogram [ECG] [EKG]; H11.31 Conjunctival hemorrhage, right eye; J43.9 Emphysema, unspecified; R07.9 Chest pain, unspecified; E78.00 Pure hypercholesterolemia, unspecified; F32.A Depression, unspecified; F41.9 Anxiety disorder, unspecified; E11.9 Type 2 diabetes mellitus without complications; K21.9 Gastro-esophageal reflux disease without esophagitis; R93.0 Abnormal findings on diagnostic imaging of skull and head, not elsewhere classified; H91.90 Unspecified hearing loss, unspecified ear; Z79.52 Long term (current) use of systemic steroids; H54.7 Unspecified visual loss; F17.200 Nicotine dependence, unspecified, uncomplicated; Z79.84 Long term (current) use of oral hypoglycemic drugs; Z79.899 Other long term (current) drug therapy; Z23 Encounter for immunization; Y92.091 Bathroom in other non-institutional residence as the place of occurrence of the external cause
CPT/HCPCS: 12001; 36415; 70450; 71250; 72125; 80048; 80053; 83690; 83735; 84100; 84484; 85025; 90471; 90715; 93005; 93307; 94640; 97162; 99285; A9270; J3490; J7512; J7613

== ENCOUNTER 2023-09-29 05:58 | Outpatient (CLI) | payer MEDICARE, MEDICAID | END 2023-09-29 23:59 | disposition critical access hospital (66) | LOC: EMS 05:58 | DX: R52 Pain, unspecified (principal); R53.1 Weakness; Z74.09 Other reduced mobility | CPT/HCPCS: A0425; A0429 ==

== ENCOUNTER 2023-09-29 06:29 | Emergency (ER) | payer MEDICARE, MEDICAID ==
[2023-09-29] MEDS: IBUPROFEN 600 MG TABLET PO STA (06:45)
[2023-09-29] MEDS: ACETAMINOPHEN 325 MG TABLET PO STA (06:45)
[2023-09-29] MEDS: SODIUM CHLORIDE 0.9% 1,000 ML IV STA (06:46)
--- NOTE | 2023-09-29 06:52 | ED Physician Documentation ---
History of Present Illness - Stated complaint Stated Complaint: WEAKNESS/DECREACSED MOBILITY X1 MO - Chief complaint Chief Complaint: General - History obtained from History obtained from: Patient - Additonal information Additional information: Patient is brought to the emergency department by EMS from [facility] for chief complaint of bodyaches for 1 month and feeling weak for 1 month. Medics state that the reason the patient came to the ED today was that he wanted to. They are not aware of the patient having been seen by his primary at any time in the last month for this. The patient has no other symptoms. He denies fever, chills, cough, abdominal pain, nausea, vomiting, diarrhea, urinary symptoms, or any other infectious indicators. No new medications. The patient reports that he has been so tired that he has been in his wheelchair for the last month, as opposed to his report that he is normally up walking around, but records actually indicate the patient has been in a wheelchair since 2019. At this point in time, all workup is pending on the patient. He will be signed out to Dr. Escalante at change of shift, pending results of workup and final disposition. PD PAST MEDICAL HISTORY - Past Medical History Cardiovascular: High cholesterol Respiratory: COPD, Emphysema, Sleep apnea Neuro: Other Endocrine/Autoimmune: Type 2 diabetes GI: GERD : None HEENT: Chronic vision loss, Chronic hearing loss, Other Psych: Depression, Anxiety, Panic attacks, Other Musculoskeletal: Other Derm: None - Past Surgical History Past Surgical History: Yes General: EGD Ortho: Other HEENT: Other - Present Medications Home Medications: Ambulatory Orders Medication Instructions Recorded Confirmed Aripiprazole [Abilify] 20 mg PO HS 06/18/12 03/10/23 Cholecalciferol (Vitamin D3) 5,000 unit PO DAILY 06/18/12 03/10/23 [Vitamin D3] Multivitamin [Multivitamins] 1 each PO DAILY 06/18/12 03/10/23 Pantoprazole Sodium [Protonix] 40 mg PO BID 06/18/12 03/10/23 Albuterol Sulfate [Proair Hfa 2 inhaler INH DAILY PRN 11/01/13 03/10/23 Inhaler] Atorvastatin [Lipitor] 10 mg PO QPM 11/01/13 03/10/23 Tiotropium [Spiriva] 1 puffs INH DAILY 09/05/14 03/10/23 Citalopram [CeleXA] 30 mg PO DAILY 08/24/15 03/10/23 metFORMIN [Glucophage] 500 mg PO BIDWM 01/29/23 03/10/23 Carboxymethylcellulose Sodium 1 drops EACHEYE TID PRN 03/10/23 03/10/23 [Refresh Tears] Divalproex Sodium [Depakote] 500 mg PO BID 03/10/23 03/10/23 Nirmatrelvir/Ritonavir [Paxlovid 1 each PO BID 03/10/23 03/10/23 300-100 mg Dose Pack] Citalopram [CeleXA] 30 mg PO DAILY tab 03/14/[address] [Depakote Dr] 500 mg PO BID tab 03/14/23 - Allergies Allergies/Adverse Reactions: Allergies Allergy/AdvReac Type Severity Reaction Status Date / Time No Known Drug Allergies Allergy Verified 03/10/23 04:36 - Social History Does the pt smoke?: Yes Smoking Status: Current every day smoker Does the pt drink ETOH?: Yes Does the pt have substance abuse?: No - Immunizations Immunizations are current?: Yes - POLST Patient has POLST: No PD ED PE NORMAL - Vitals Vital signs reviewed: Yes - General General: No acute distress, Well developed/nourished, Other (Alert, well- appearing.) - HEENT HEENT: Atraumatic, EOMI, Moist mucous membranes - Neck Neck: Supple, no meningeal sign - Cardiac Cardiac: RRR, No murmur - Respiratory Respiratory: No respiratory distress, Clear bilaterally - Abdomen Abdomen: Soft, Non tender, Non distended - Derm Derm: Normal color, No rash, Other (Skin is very warm, dry) - Extremities Extremities: No deformity, No edema - Neuro Neuro: Other (Alert, answers questions appropriately.) - Psych Psych: Normal mood, Normal affect Results - Vitals Vitals: Vital Signs - 24 hr 09/29/23 06:34 Temperature 37.6 C Heart Rate 79 Respiratory 20 Rate Blood Pressure 145/85 H O2 Saturation 96 Oxygen O2 Source [Without Activity] Room air O2 Source [With Activity] Room air O2 Source Room air PD Medical Decision Making - ED course Complexity details: reviewed results, re-evaluated patient, considered differential, d/w patient ED course: The patient presented to the emergency department for ongoing symptoms for the past month without any clear worsening today. It is not clear why the facility did not pursue an evaluation with our nurse practitioner. The patient was worked up with labs, chest x-ray, urinalysis, and respiratory PCR panel. He was given a liter 0.9 normal saline and doses of Tylenol and ibuprofen. Departure - Departure
[2023-09-29 07:13] LABS: BILIRUBIN,URINE NEGATIVE (NEGATIVE); GLUCOSE, URINE (UA) NEGATIVE (NEGATIVE); KETONES,URINE (UA) NEGATIVE (NEGATIVE); LEUKOCYTE ESTERASE, URINE NEGATIVE (NEGATIVE); NITRITE,URINE NEGATIVE (NEGATIVE); OCCULT BLOOD,URINE NEGATIVE (NEGATIVE); PROTEIN,URINE NEGATIVE (NEGATIVE); UROBILINOGEN,URINE 4 E.U./dL (NORMAL)
[2023-09-29 07:20] LABS: CLARITY,URINE CLEAR (CLEAR)
[2023-09-29 07:27] LABS: ALBUMIN 3.7 g/dL (3.2-5.5); ALBUMIN/GLOBULIN RATIO 1.2 (1.0-2.2); BILIRUBIN,TOTAL 0.4 mg/dL (0.2-1.0); CALCIUM 9.3 mg/dL (8.5-10.3); CREATININE 0.7 mg/dL (0.6-1.3); POTASSIUM 4.4 mmol/L (3.5-4.5); TOTAL PROTEIN 6.7 g/dL (6.4-8.9)
[2023-09-29 07:31] LABS: BASOPHILS % (AUTO) 0.2 %; EOSINOPHILS # (AUTO) 0.1 10^3/uL (0.0-0.7); EOSINOPHILS % (AUTO) 0.5 %; HCT - HEMATOCRIT 41.1 % (42.0-52.0); LYMPHOCYTES # (AUTO) 1.4 10^3/uL (1.5-3.5); LYMPHOCYTES % (AUTO) 9.9 %; MEAN CORPUSCULAR HEMOGLOBIN 27.4 pg (27.0-31.0); MEAN CORPUSCULAR HGB CONC 31.6 g/dL (32.0-36.0); MEAN CORPUSCULAR VOLUME 86.7 fL (80.0-94.0); MEAN PLATELET VOLUME 9.3 fL (7.4-11.4); MONOCYTES # (AUTO) 2.1 10^3/uL (0.0-1.0); MONOCYTES % (AUTO) 14.4 %; NEUTROPHILS # (AUTO) 10.6 10^3/uL (1.5-6.6); NEUTROPHILS % (AUTO) 74.3 %; PLT - PLATELET COUNT 444 10^3/uL (130-450); RED BLOOD COUNT 4.74 10^6/uL (4.70-6.10); RED CELL DISTRIBUTION WIDTH 16.6 % (12.0-15.0); WHITE BLOOD COUNT 14.3 x10^3/uL (4.8-10.8)
[2023-09-29 07:34] LABS: SLIDE REVIEW? Indicated
[2023-09-29 07:38] LABS: B. PARAPERTUSSIS- RESP PCR PAN NOT DETECTED; B. PERTUSSIS- RESP PCR PANEL NOT DETECTED; C. PNEUMONIAE- RESP PCR PANEL NOT DETECTED; CORONAVIRUS 229E-RESP PCR NOT DETECTED; CORONAVIRUS HKU1-RESP PCR NOT DETECTED; CORONAVIRUS NL63-RESP PCR NOT DETECTED; CORONAVIRUS OC43-RESP PCR NOT DETECTED; HUMAN METAPNEUMOVIRUS NOT DETECTED; INFLUENZA A- RESP PCR PANEL NOT DETECTED; INFLUENZA B - RESP PCR PANEL NOT DETECTED; M. PNEUMONIAE- RESP PCR PANEL NOT DETECTED; PARAINFLUENZA VIRUS 1 NOT DETECTED; PARAINFLUENZA VIRUS 2 NOT DETECTED; PARAINFLUENZA VIRUS 3 NOT DETECTED; PARAINFLUENZA VIRUS 4 NOT DETECTED; RHINOVIRUS/ENTEROVIRUS NOT DETECTED; RSV- RESP PCR PANEL NOT DETECTED; SARS-CoV-2 -RESP PCR PANEL NOT DETECTED
--- NOTE | 2023-09-29 07:55 | ED Physician Documentation ---
ED Addendum - Addendum Addendum: 09/29/23 07:[address] Kelly at 7 AM shift change. Briefly this is a 62-year-old gentleman who presented this morning by ambulance from [facility] in [place]. He has a history of COPD, sleep apnea, type 2 diabetes, and some psychiatric issues. He was seen and examined at the bedside. For me his main complaint was chronic left leg pain after a remote fracture with hardware in place. He had full and painless range of motion of it and there was no sign of infection in that leg. Otherwise his complaints were basically body achiness generally. Workup demonstrated a modest leukocytosis which he has had at times in the past without infections. Chemistry panel showing mild chronic elevation of CO2 likely from his COPD, otherwise negative/normal. Urinalysis and [employer] respiratory panel were negative. At this point there is no apparent emergency m edical condition and he will be discharged back to [facility] for outpatient follow-up. Disposition: Discharge Condition: Stable Diagnosis: 1. Chronic left leg pain 2. Body aches 09/29/23 08:51 He did want something for the aches and I prescribed low dose gabapentin, 100 mg p.o. 3 times daily as needed pain #30 with any refills to come from his primary care.
[2023-09-29 07:57] LABS: PLATELET ESTIMATE, MANUAL NORMAL (130-450,000) (NORMAL); PLATELET MORPHOLOGY NORMAL APPEARANCE (NORMAL)
[2023-09-29 07:58] LABS: RBC MORPHOLOGY (MULTIPLE) 1+ OVALOCYTES (NORMAL)
--- NOTE | 2023-09-29 08:40 | XRAY Report ---
PROCEDURE: Chest 1V INDICATIONS: fever, [place] pt TECHNIQUE: One view of the chest was acquired. COMPARISON: 01/29/2023. FINDINGS: Surgical changes and devices: None. Lungs and pleura: No significant change. Chronic elevation of left hemidiaphragm. Interstitial promi nence. No focal infiltrates. Mediastinum: Mediastinal contours appear normal. Heart size is normal. Bones and chest wall: No suspicious bony lesions. Overlying soft tissues appear unremarkable. IMPRESSION: No acute cardiopulmonary process. Findings are concordant with preliminary interpretation provided by [facility]. Reviewed by: Brandan South MD on 09/29/2023 8:39 AM PDT Approved by: Brandan South MD on 09/29/2023 8:39 AM PDT Station ID: [id number]
[2023-09-29 08:59] VITALS: BP 126/72; O2SAT 94
== END 2023-09-29 08:58 | disposition home or self-care (01) ==
LOC: EDUNIT# → ED 06:29
DX: M79.605 Pain in left leg (principal); G89.29 Other chronic pain; M79.10 Myalgia, unspecified site; E11.9 Type 2 diabetes mellitus without complications; G47.30 Sleep apnea, unspecified; J44.9 Chronic obstructive pulmonary disease, unspecified; F41.9 Anxiety disorder, unspecified; Z79.84 Long term (current) use of oral hypoglycemic drugs; F17.200 Nicotine dependence, unspecified, uncomplicated
CPT/HCPCS: 36415; 71045; 80053; 81003; 83690; 85025; 87633; 99284; A9270; 81001; 87086

== ENCOUNTER 2023-10-18 13:31 | Outpatient (CLI) | payer MEDICARE, MEDICAID ==
[2023-10-18 14:11] LABS: ALBUMIN 3.2 g/dL (3.2-5.5); ALBUMIN/GLOBULIN RATIO 1.2 (1.0-2.2); BILIRUBIN,TOTAL 0.2 mg/dL (0.2-1.0); CREATININE 0.5 mg/dL (0.6-1.3); POTASSIUM 4.1 mmol/L (3.5-4.5); TOTAL PROTEIN 5.9 g/dL (6.4-8.9)
[2023-10-18 14:22] LABS: THYROID STIMULATING HORMONE 1.92 uIU/mL (0.34-5.60)
[2023-10-18 14:25] LABS: BILIRUBIN,URINE NEGATIVE (NEGATIVE); GLUCOSE, URINE (UA) 100 mg/dL (NEGATIVE); KETONES,URINE (UA) TRACE mg/dL (NEGATIVE); LEUKOCYTE ESTERASE, URINE NEGATIVE (NEGATIVE); NITRITE,URINE NEGATIVE (NEGATIVE); OCCULT BLOOD,URINE NEGATIVE (NEGATIVE); PROTEIN,URINE NEGATIVE (NEGATIVE); UROBILINOGEN,URINE 4 E.U./dL (NORMAL)
[2023-10-18 14:27] LABS: BASOPHILS % (AUTO) 0.4 %; EOSINOPHILS % (AUTO) 0.4 %; HCT - HEMATOCRIT 34.9 % (42.0-52.0); HGB - HEMOGLOBIN 10.8 g/dL (14.0-18.0); LYMPHOCYTES # (AUTO) 1.8 10^3/uL (1.5-3.5); MEAN CORPUSCULAR HEMOGLOBIN 26.6 pg (27.0-31.0); MEAN CORPUSCULAR HGB CONC 30.9 g/dL (32.0-36.0); MEAN PLATELET VOLUME 8.8 fL (7.4-11.4); MONOCYTES # (AUTO) 1.8 10^3/uL (0.0-1.0); MONOCYTES % (AUTO) 18.2 %; NEUTROPHILS # (AUTO) 5.9 10^3/uL (1.5-6.6); NEUTROPHILS % (AUTO) 60.7 %; PLT - PLATELET COUNT 758 10^3/uL (130-450); RED BLOOD COUNT 4.06 10^6/uL (4.70-6.10); RED CELL DISTRIBUTION WIDTH 16.2 % (12.0-15.0); WHITE BLOOD COUNT 9.7 x10^3/uL (4.8-10.8)
[2023-10-18 14:28] LABS: PLATELET ESTIMATE, MANUAL INCREASED (>450,000) (NORMAL); SLIDE REVIEW? Indicated
[2023-10-18 14:35] LABS: CLARITY,URINE CLEAR (CLEAR)
[2023-10-18 14:36] LABS: BACTERIA,URINE None Seen /HPF (None Seen); RBC,URINE None Seen /HPF (0-5); SQUAMOUS EPITHELIAL CELL,UR RARE Squamous (<= Few); WBC,URINE 0-3 /HPF (0-3)
--- NOTE | 2023-10-20 11:12 | XRAY Report ---
PROCEDURE: Knee 2V LT INDICATIONS: LEFT KNEE JOINT PAIN TECHNIQUE: 3 views of the knee was obtained. COMPARISON: None FINDINGS: Bones: No fractures or dislocations. No suspicious bony lesions. Tibial intramedullary john partiall y imaged Soft tissues: No knee joint effusion. No suspicious soft tissue calcifications or masses. IMPRESSION: Tibial intramedullary john in position proximally. Knee joint itself is unremarkable. Reviewed by: Derek Vieira MD on 10/20/2023 10:10 AM DEANNA Approved by: Derek Vieira MD on 10/20/2023 10:10 AM [place] Station ID: [id number]
--- NOTE | 2023-10-20 11:17 | XRAY Report ---
PROCEDURE: Hips w/Pelvis 3-4V BL INDICATIONS: LEFT HIP JOINT PAIN TECHNIQUE: Single view the pelvis and 2 views of the hips was obtained COMPARISON: None. FINDINGS: Normal bone mineralization. Right hip shows appropriate joint space without osteophytes at. Left hip shows moderate joint space narrowing and subchondral sclerosis with inferior osteophyte and remodelin g of the acetabular cup IMPRESSION: Advanced left hip osteoarthritis with remodeling of the acetabulum Reviewed by: Derek Vieira MD on 10/20/2023 10:16 AM DEANNA Approved by: Derek Vieira MD on 10/20/2023 10:16 AM DEANNA Station ID: [id number]
== END 2023-10-18 13:32 | disposition home or self-care (01) ==
LOC: LAB 13:31
PROVIDERS: ATTEND Nurse Practitioner Family
DX: R53.83 Other fatigue (principal); R60.9 Edema, unspecified; R32 Unspecified urinary incontinence; M16.12 Unilateral primary osteoarthritis, left hip; Z96.89 Presence of other specified functional implants
CPT/HCPCS: 36415; 80053; 81001; 84443; 85025; 87086

== ENCOUNTER 2023-11-01 11:07 | Outpatient (CLI) | payer MEDICARE, MEDICAID ==
[2023-11-01 11:36] LABS: BASOPHILS % (AUTO) 0.3 %; EOSINOPHILS % (AUTO) 0.4 %; HCT - HEMATOCRIT 36.7 % (42.0-52.0); HGB - HEMOGLOBIN 11.2 g/dL (14.0-18.0); LYMPHOCYTES # (AUTO) 1.9 10^3/uL (1.5-3.5); LYMPHOCYTES % (AUTO) 18.2 %; MEAN CORPUSCULAR HEMOGLOBIN 25.8 pg (27.0-31.0); MEAN CORPUSCULAR HGB CONC 30.5 g/dL (32.0-36.0); MEAN CORPUSCULAR VOLUME 84.6 fL (80.0-94.0); MEAN PLATELET VOLUME 8.5 fL (7.4-11.4); MONOCYTES # (AUTO) 1.8 10^3/uL (0.0-1.0); MONOCYTES % (AUTO) 17.8 %; NEUTROPHILS # (AUTO) 6.4 10^3/uL (1.5-6.6); NEUTROPHILS % (AUTO) 62.5 %; PLT - PLATELET COUNT 570 10^3/uL (130-450); RED BLOOD COUNT 4.34 10^6/uL (4.70-6.10); RED CELL DISTRIBUTION WIDTH 16.4 % (12.0-15.0); WHITE BLOOD COUNT 10.2 x10^3/uL (4.8-10.8)
[2023-11-01 11:38] LABS: RBC MORPHOLOGY (MULTIPLE) 2+ ANISOCYTOSIS (NORMAL); SLIDE REVIEW? Indicated
== END 2023-11-01 11:08 | disposition home or self-care (01) ==
LOC: LAB 11:07
PROVIDERS: ATTEND Nurse Practitioner
DX: R32 Unspecified urinary incontinence (principal); Z12.5 Encounter for screening for malignant neoplasm of prostate; D50.9 Iron deficiency anemia, unspecified; D75.839 Thrombocytosis, unspecified
CPT/HCPCS: 36415; 85025; G0103; 84153

== ENCOUNTER 2023-11-03 13:01 | Outpatient (CLI) | payer MEDICARE, MEDICAID ==
--- NOTE | 2023-11-03 17:47 | XRAY Report ---
Lumbar Spine 4V HISTORY: 62 years of age, LOW BACK PAIN, CHRONIC TECHNIQUE: Lumbar Spine 4V COMPARISON: 11/02/2019. FINDINGS/IMPRESSION: Mild dextrocurvature of the lumbar spine. Straightening of the lumbar spine. Vertebral body heights a re well-maintained. Multilevel, severe degenerative disc disease of the lumbar spine, most pronounced at L4-5 and L5-S1, slightly progressed from prior exam. Severe lower lumbar facet arthropathy. Severe axial joint space narrowing of the left hip, incompletely evaluated. Reviewed by: Leelee Noel MD on 11/03/2023 5:46 PM PDT Approved by: Leelee Noel MD on 11/03/2023 5:46 PM PDT Station ID: [id number]
== END 2023-11-03 13:02 | disposition home or self-care (01) ==
LOC: DI.N 13:01
PROVIDERS: ATTEND Nurse Practitioner
DX: M51.36 Other intervertebral disc degeneration, lumbar region (principal); M51.37 Other intervertebral disc degeneration, lumbosacral region; M47.816 Spondylosis without myelopathy or radiculopathy, lumbar region

== ENCOUNTER 2023-11-03 13:11 | Outpatient (CLI) | payer MEDICARE, MEDICAID ==
[2023-11-03 17:42] LABS: ABSOLUTE RETICS # AUTO 0.064 10^6/uL (0.020-0.110); BASOPHILS % (AUTO) 0.4 %; EOSINOPHILS # (AUTO) 0.1 10^3/uL (0.0-0.7); EOSINOPHILS % (AUTO) 0.6 %; HCT - HEMATOCRIT 35.9 % (42.0-52.0); HGB - HEMOGLOBIN 11.3 g/dL (14.0-18.0); LYMPHOCYTES # (AUTO) 2.1 10^3/uL (1.5-3.5); LYMPHOCYTES % (AUTO) 22.8 %; MEAN CORPUSCULAR HEMOGLOBIN 26.6 pg (27.0-31.0); MEAN CORPUSCULAR HGB CONC 31.5 g/dL (32.0-36.0); MEAN CORPUSCULAR VOLUME 84.5 fL (80.0-94.0); MEAN PLATELET VOLUME 9.1 fL (7.4-11.4); MONOCYTES # (AUTO) 1.3 10^3/uL (0.0-1.0); MONOCYTES % (AUTO) 13.7 %; NEUTROPHILS # (AUTO) 5.7 10^3/uL (1.5-6.6); NEUTROPHILS % (AUTO) 61.5 %; PLT - PLATELET COUNT 589 10^3/uL (130-450); RED BLOOD COUNT 4.25 10^6/uL (4.70-6.10); RED CELL DISTRIBUTION WIDTH 16.7 % (12.0-15.0); WHITE BLOOD COUNT 9.3 x10^3/uL (4.8-10.8)
[2023-11-03 17:44] LABS: BILIRUBIN,URINE NEGATIVE (NEGATIVE); GLUCOSE, URINE (UA) NEGATIVE (NEGATIVE); KETONES,URINE (UA) TRACE mg/dL (NEGATIVE); LEUKOCYTE ESTERASE, URINE NEGATIVE (NEGATIVE); NITRITE,URINE NEGATIVE (NEGATIVE); OCCULT BLOOD,URINE NEGATIVE (NEGATIVE); PH,URINE 5.5 PH (5.0-7.5); PROTEIN,URINE NEGATIVE (NEGATIVE); UROBILINOGEN,URINE 2 E.U./dL (NORMAL)
[2023-11-03 17:56] LABS: BACTERIA,URINE Rare /HPF (None Seen); CLARITY,URINE CLEAR (CLEAR); RBC,URINE 0-5 /HPF (0-5); SQUAMOUS EPITHELIAL CELL,UR NONE SEEN (<= Few); WBC,URINE 0-3 /HPF (0-3)
[2023-11-03 17:57] LABS: CRP - C-REACTIVE PROTEIN 12.6 mg/dL (<0.5)
[2023-11-03 18:20] LABS: FERRITIN 98.4 ng/mL (23.9-336.2)
== END 2023-11-03 13:12 | disposition home or self-care (01) ==
LOC: LAB.N 13:11
PROVIDERS: ATTEND Nurse Practitioner
DX: D64.9 Anemia, unspecified (principal); R06.02 Shortness of breath; N39.46 Mixed incontinence
CPT/HCPCS: 36415; 81001; 82607; 82728; 82746; 83540; 83880; 84466; 85025; 85045; 85651; 86140; 87086